=== PATIENT | male | born 1945 | race Caucasian/White ===

== ENCOUNTER 2020-08-01 08:17 | Outpatient (CLI) | payer MEDICARE, SELFPAY ==
--- NOTE | ~2020-08-01 | XR_ITS ---
EXAMINATION: XR chest 2V 08/01/2020 10:14 INDICATION: Hypertension. Carotid stenosis. PROCEDURE: 2 view chest COMPARISON: 09/03/2009 FINDINGS: The lungs are clear. The cardiomediastinal silhouette is within normal limits. There are no pleural effusions. There is no pneumothorax suspected. IMPRESSION: 1: NO ACUTE CARDIOPULMONARY DISEASE. Reviewed, dictated and finalized at location B. ROLL INSPECTOR
--- NOTE | ~2020-08-01 | US_ITS ---
EXAMINATION: US carotid duplex BI DATE: 08/01/2020 10:30 INDICATION: Carotid stenosis TECHNIQUE: Grayscale, color Doppler, and pulsed Doppler images of the cervical carotid arteries were obtained. The degree of vessel stenosis is placed in one of the following categories: normal, <50%, 5 0-69%, >=70% but less than near-occlusion, near-occlusion, or total occlusion. Note that percent sten osis relative to normal distal artery lumen diameter is indirectly measured from velocity measurement s as described by Blayne, et al. Radiology 2003; 229:340-346. Notes: Normal: Peak systolic velocity <125 centimeters/sec and no plaque <50%. Peak systolic velocity <125 ( EDV <40; ICA/CCA PSV ratio <2.0; used these factors only a tandem lesions or low cardiac output or co ntralateral disease) 50-69 %: PSV 125-230 (EDV 40-100; ratio 2-4) >= 70% but less than near occlusion: PSV greater than 230 (EDV > 100; ratio> 4.0) Near Occlusion: PSV that is variable; markedly narrowed lumen Occlusion: Absent flow on color/spectral Doppler and no lumen on cat scale. COMPARISON: None. FINDINGS: RIGHT: The right common carotid artery (CCA) peak systolic velocity (PSV) is 131 cm/s. The right internal ca rotid artery (ICA) PSV is 174 cm/s. The right ICA end-diastolic velocity (EDV) is 44 cm/s. The right ICA/CCA PSV ratio is 1.3. The external carotid artery (ECA) PSV is 156 cm/s. There is antegrade flow in the right vertebral artery. LEFT: The left CCA PSV is 85 cm/s. The left ICA PSV is 349 cm/s. The left ICA EDV is 68 cm/s. The left ICA/ CCA PSV ratio is 4.1. The ECA PSV is 130 cm/s. There is antegrade flow in the left vertebral artery. IMPRESSION: 1. 50-69% stenosis in the right internal carotid artery by sonographic criteria. 2. Greater than or equal to 70% stenosis in the left internal carotid artery by sonographic criteria. Reviewed, dictated and finalized at location B. NE ADVERTISING DIRECTOR IMPRESSION: 1. 50-69% stenosis in the right internal carotid artery by sonographic criteria . 2. Greater than or equal to 70% stenosis in the left internal carotid artery by sonographic criteria.
--- NOTE | 2020-08-01 08:36 | ECHO_ITS ---
Patient Info Name: Izaiah Hayes Age: 75 years : 1945 Gender: Male Ht: 73 in Wt: 186 lbs BSA: 2.09 m2 HR: 68 bpm BP: 161 / 75 mmHg Heart Rhythm: Sinus Rhythm Technical Quality: Fair Exam Date: 08/01/2020 9:06 AM Exam Location: [facility], [place] Patient Status: Outpatient Admit Date: 08/01/2020 Staff Ordering Physician: Landon Franklin MD Insurance Clerk: Cherrie Cavanaugh RDCS Attending Provider: Landon Franklin MD Referring Physician: Rigoberto NG; Exam Type: CA echo doppler color flow Study Info Indications I10 - Essential (primary) hypertension R06.00 - Dyspnea, unspecified Complete two-dimensional, color flow and Doppler transthoracic echocardiogram is performed. Strain analysis performed. History/Risk Factors Hypertension: No Dyslipidemia: No Congenital Heart Disease (CHD): No Peripheral Arterial Disease (PAD): No Myocardial Infarction (TN): No Chronic Lung Disease: No Obesity: No Renal Disease: No Coronary Artery Disease (CAD) No Congestive Heart Failure (CHF): No Cardiomyopathy/LV Systolic Dysfunction: No Diabetes Mellitus: No COPD: No Tobacco Use: Never Cerebrovascular Disease: No Family History: Coronary Artery Disease Deep Vein Thrombosis (DVT): None Dialysis: None Frailty Scale (CSHA): 2: Well Cardiac Arrest: No Summary 1. Complete two-dimensional, color flow and Doppler transthoracic echocardiogram is performed. 2. Left ventricular chamber dimension is normal. 3. Left ventricular systolic function is normal, estimated at 60-65%. 4. The left ventricular diastolic function is grade I diastolic dysfunction. 5. E/e' 8 is minimally elevated. 6. Right ventricular systolic function is mildly reduced based on a TAPSE 1.6 cm. 7. There is mild aortic valve sclerosis. 8. There is mild pulmonic regurgitation. Left Ventricle E/e' 8 is minimally elevated. Left ventricular chamber dimension is normal. Left ventricular systolic function is normal, estimated at 60-65%. The left ventricular diastolic function is grade I diastolic dysfunction. Right Ventricle Right ventricular systolic function is mildly reduced based on a TAPSE 1.6 cm. Right ventricular chamber dimension is not well visualized. Left Atria Left atrial chamber dimension is normal. Right Atria Right atrial chamber dimension is normal. Aortic Valve The aortic valve is trileaflet. There is mild aortic valve sclerosis. There is no aortic valve stenosis. There is no aortic valve regurgitation. Pulmonic Valve There is mild pulmonic regurgitation. Mitral Valve There is no mitral valve stenosis. There is no mitral valve regurgitation. Tricuspid Valve There is no tricuspid valve regurgitation. Pericardium/Pleural There is no pericardial effusion. Inferior Vena Cava Normal inferior vena cava with >50% collapse upon inspiration consistent with normal right atrial pressure, 5 mmHg. Aorta The aortic root size at the sinus of Valsalva is normal. Left Ventricular Outflow Tract Name Value Normal LVOT 2D LVOT Diameter 1.9 cm Mitral Valve
== END 2020-08-01 08:18 | disposition home or self-care (01) ==
LOC: CHSIMG 08:23
PROVIDERS: PCP Internal Medicine; Visit Provider Internal Medicine
DX: R06.00 Dyspnea, unspecified (principal); I65.23 Occlusion and stenosis of bilateral carotid arteries; I10 Essential (primary) hypertension
CPT/HCPCS: 71046; 93306; 93880

== ENCOUNTER 2020-08-05 16:41 | Outpatient (CLI) | payer MEDICARE, SELFPAY ==
[2020-08-05 17:38] LABS: SARS-CoV-2 Ag Negative (Negative)
== END 2020-08-05 16:42 | disposition home or self-care (01) ==
LOC: CHSLAB 16:45
PROVIDERS: PCP Internal Medicine; Visit Provider Internal Medicine
DX: Z20.828 Contact with and (suspected) exposure to other viral communicable diseases (principal)
CPT/HCPCS: 87426

== ENCOUNTER 2020-08-21 11:02 | Outpatient (CLI) | payer MEDICARE, SELFPAY ==
[2020-08-21 11:40] LABS: SARS-CoV-2 Ag Positive (Negative)
== END 2020-08-21 11:03 | disposition home or self-care (01) ==
LOC: CHSLAB 11:05
PROVIDERS: PCP Internal Medicine; Visit Provider Internal Medicine
DX: U07.1 COVID-19 (principal); R50.9 Fever, unspecified; R09.81 Nasal congestion
CPT/HCPCS: 87426

== ENCOUNTER 2020-09-05 07:26 | Outpatient (CLI) | payer MEDICARE, SELFPAY ==
--- NOTE | ~2020-09-05 | CT_ITS ---
EXAMINATION: CT abdomen pelvis w con DATE: 09/05/2020 08:03 INDICATION: Prostate cancer. Abdomen pain. TECHNIQUE: Computed tomography (CT) of the abdomen and pelvis was performed with 100 cc Omnipaque 350 intravenous contrast. The dose-length product was 500.75 mGy-cm. Automated exposure control and iter ative reconstruction technique were employed. COMPARISON: No prior studies for comparison. . FINDINGS: Lung bases are unremarkable. Heart size normal. No significant pleural or pericardial effus ion. Small subcentimeter hypodensity of the liver, most likely benign cysts. There are calcified granuloma s of the spleen. The pancreas is mildly atrophic. The adrenal glands are unremarkable. Left kidney is normal. There is a 2.5 cm exophytic hypodense right renal mass posteriorly with density measurements above expected for simple cyst. Correlation with ultrasound recommended for further assessment. Ther e are surgical changes consistent with previous bilateral inguinal hernia repair. Colonic diverticulo sis without evidence for diverticulitis. There is right total hip arthroplasty. Moderate lumbar spond ylosis with grade 1 degenerative spondylolisthesis at L4-5. Mild atherosclerosis without aneurysm. No lymphadenopathy. Mildly enlarged prostate gland. IMPRESSION: 1. No evidence for metastatic disease. 2: Indeterminate exophytic 2.5 cm hypodense right renal mass. Correlation with ultrasound recommended . Reviewed, dictated and finalized at location A. N RESOURCES PARTNER IMPRESSION: 1. No evidence for metastatic disease. 2: Indeterminate exophytic 2.5 cm hypodense right renal mass. Correlation with ultrasound recommended.
--- NOTE | ~2020-09-05 | NM_ITS ---
EXAMINATION: NM bone scan whole body DATE: 09/05/2020 12:45 INDICATION: Prostate cancer TECHNIQUE: 25.9 mCi Tc-99m HDP was administered intravenously. Delayed whole-body scintigrams were o btained. COMPARISON: CT abdomen and pelvis dated 09/05/2020 FINDINGS: Photopenic defect at the right hip corresponding to a right total hip arthroplasty without surroundin g increased bone uptake to suggest loosening or infection. There are scattered foci of likely degener ative joint centered uptake at the bilateral sternoclavicular, acromioclavicular,, cervical and lumba r facet, knee and ankle joints as well as at the radial aspect of the carpi. No other suspicious foci of suspicious bone uptake to suggest metastatic disease. IMPRESSION: 1. No suspicious foci of uptake to suggest metastatic disease. 2. Typical pattern of likely degenerative joint centered uptake throughout the axial and appendicular skeleton. Reviewed, dictated and finalized at location A. R CASER
[2020-09-05 07:57] LABS: Estimated Glomerular Filt Rate 59
== END 2020-09-05 07:27 | disposition home or self-care (01) ==
PROVIDERS: PCP Internal Medicine; Visit Provider Urology
DX: C61 Malignant neoplasm of prostate (principal)
CPT/HCPCS: 74177; 78306; A9561; Q9967

== ENCOUNTER 2020-09-16 07:49 | Outpatient (CLI) | payer MEDICARE, SELFPAY ==
--- NOTE | ~2020-09-16 | US_ITS ---
EXAMINATION: US retroperitoneal comp DATE: 09/16/2020 08:21 INDICATION: Kidney mass. TECHNIQUE: Multiple ultrasound grayscale images of the kidneys were obtained. COMPARISON: CT abdomen and pelvis 09/05/2020 FINDINGS: The right kidney measures 9.8 x 5.0 x 5.8 cm. The left kidney measures 9.8 x 5.5 x 5.1 cm. The kidney s demonstrate normal parenchymal echogenicity. There is a 2.5 cm hypoechoic mass in right kidney. The re is no hydronephrosis. The bladder is normal. IMPRESSION: 1. 2.5 cm hypoechoic mass in right kidney, which may be a hemorrhagic cyst or solid neoplasm. Abdome n CT without and with contrast is recommended. Reviewed, dictated and finalized at location B. RA TUNING ENGINEER IMPRESSION: 1. 2.5 cm hypoechoic mass in right kidney, which may be a hemorrhagic cyst or solid neoplasm. Abdomen CT without and with contrast is recommended.
== END 2020-09-16 07:50 | disposition home or self-care (01) ==
LOC: ANHIMG 07:52
PROVIDERS: PCP Internal Medicine; Visit Provider Urology
DX: N28.89 Other specified disorders of kidney and ureter (principal)
CPT/HCPCS: 76770

== ENCOUNTER 2020-10-07 06:57 | Outpatient (CLI) | payer MEDICARE, SELFPAY ==
[2020-10-07 10:48] LABS: Alanine Aminotransferase 36 U/L (16-63); Cholesterol 149 mg/dL (0-200); HDL Direct 60 mg/dL (40-60); LDL Cholesterol Calculated 81 mg/dL (<130); Triglycerides 41 mg/dL (0-150)
== END 2020-10-07 06:58 | disposition home or self-care (01) ==
PROVIDERS: PCP Internal Medicine; Visit Provider Internal Medicine Cardiovascular Disease
DX: E78.2 Mixed hyperlipidemia (principal); Z79.899 Other long term (current) drug therapy
CPT/HCPCS: 36415; 80061; 84460

== ENCOUNTER 2020-11-10 09:19 | Outpatient (CLI) | payer MEDICARE, SELFPAY ==
--- NOTE | 2020-11-10 09:30 | ECG_ITS ---
Measurements Intervals [place] Rate: 74 P: -4 SC: 170 QRS: 32 QRSD: 112 T: 11 QT: 378 QTc: 422 Interpretive Statements SINUS RHYTHM INTRAVENTRICULAR CONDUCTION DELAY BASELINE ARTIFACT- I, II, III, AVR, AVF BORDERLINE ECG Electronically Signed On 11-10-2020 10:49:30 CDT by Jadon Flores D.O.
== END 2020-11-10 09:20 | disposition home or self-care (01) ==
LOC: ANHSURGERY 09:25
PROVIDERS: PCP Internal Medicine; Visit Provider Urology
DX: C61 Malignant neoplasm of prostate (principal); I10 Essential (primary) hypertension; Z01.818 Encounter for other preprocedural examination; I45.9 Conduction disorder, unspecified
CPT/HCPCS: 87086; 93005

== ENCOUNTER 2020-11-18 01:33 | Day surgery (SDC) | payer MEDICARE, SELFPAY ==
[2020-11-06 09:35] VITALS: BMI 24.1
[2020-11-18 12:19] VITALS: BP 131/71; PULSE 66; RESP 16; TEMP 36.4; O2SAT 98
[2020-11-18] MEDS: LACTATED RINGERS 1,000 ML 30 ML IV CONT (12:56)
--- NOTE | 2020-11-18 13:42 | WPDHPUPDATE1 ---
History and Physical Update Update Date/Time: 11/18/20 13:42 History and Physical has been reviewed, including an updated exam of the patient. There are NO changes in the patient's condition. Risks, benefits, and alternatives have been discussed and questions answered. Patient agrees to proceed with procedure. Proceed with space oar placement
--- NOTE | 2020-11-18 13:47 | WPDANESEPPF ---
Anes - Initial Pre Proc Eval Procedure: Operation Date: 11/18/20 14:00 Proposed Procedures p Insertion SpaceOAR Hydrogel System - Monroe Almazan MD Date/Time: 11/18/20 13:47 Surgeon: Monroe Almazan MD Pre Op Diagnosis: prostate ca Patient Data Age: 75 Gender: M Height: 6 ft 1 in Weight: 80 kg Last Vital Signs Temp 36.4 C L 11/18/20 12:19 Pulse 66 11/18/20 12:19 Resp 16 11/18/20 12:19 BP 131/71 11/18/20 12:19 Pulse Ox 98 11/18/20 12:19 Allergies Allergy/AdvReac Type Severity Reaction Status Date / Time No Known Allergies Allergy Mild Verified 11/18/20 12:43 Home Medications Medication Instructions Recorded Confirmed Type amlodipine 5 mg PO HS 11/06/20 11/18/20 History aspirin 81 mg PO DAILY 11/06/20 11/18/20 History atorvastatin 40 mg PO HS 11/06/20 11/18/20 History travoprost 1 drp EACH EYE HS 11/06/20 11/18/20 History ciprofloxacin HCl 500 mg PO BID 11/18/20 11/18/20 History Patient hx anesthesia problems: none Family hx anesthesia problems: none PMFSH Past Medical History Medical History (Updated 11/18/20 @ 13:48 by Aleksandr Lopez MD) HTN (hypertension) Hyperlipidemia Prostate cancer Social History Social History Smoking status: Never smoker Alcohol intake: current Substance use: never Living arrangements: with family Additional living arrangements comments: Spiritual care concerns: No Anes - Eval Final PreProcedure Day of Procedure 11/18/20 13:47 Patient weight: normal Heart: regular rate and rhythm Lungs: clear to auscultation Airway: Mallampati scale class II Neurological: alert and oriented Last oral intake: >/= 8 hours ASA classification: III Emergent: no Anesthetic plan: proceed Anesthesia type and monitoring: general LMA and standard monitoring Informed Consent: The patient's anesthetic plan and its attendant risks and benefits were discussed with the patient/family/POA. Questions were solicited and answers provided to the satisfaction of the patient/family/POA.
[2020-11-18] MEDS: ceFAZolin 2 GM/D5W 50 ML 2 GM/50 ML BAG IVPB (14:00)
--- NOTE | 2020-11-18 14:23 | PM.PROC ---
Procedure Note - Detailed Date of procedure: 11/18/20 Pre-op diagnosis: prostate ca Post-op diagnosis: same Procedure performed: Space oar with trus Description of procedure: Patient is taken to the operative suite and correctly identified. Once anesthesia was obtained was placed in dorsal lithotomy position and prepped in the usual sterile fashion. Transrectal ultrasound was then performed. The prostate was visualized both planes. Spinal needle was then inserted into the space between the prostate and the rectum. This was confirmed both in the transverse and sagittal view. 1 cc of normal saline was injected to confirm placement. Aspiration revealed no blood. The prior prepared space oar mixture was then injected into that same space. It was visualized at all times. There was good separation of the prostate from the rectum. Patient tolerated procedure well without complications taken recovery stable condition. Anesthesia: GLMA Surgeon: Monroe Almazan MD Drains: No Packing: No Pathology: none sent Complications: No immediate complications Condition: stable Disposition: PACU
[2020-11-18 14:29] VITALS: BP 128/75; PULSE 74; RESP 14; TEMP 36.5; O2SAT 99
[2020-11-18 14:45] VITALS: BP 156/74; PULSE 63; RESP 10; O2SAT 99
[2020-11-18 14:56] VITALS: BP 168/91; PULSE 69; RESP 12
[2020-11-18 15:25] VITALS: BP 172/88; PULSE 63; RESP 12
== END 2020-11-18 15:37 | disposition home or self-care (01) ==
PROVIDERS: PCP Internal Medicine; Visit Provider Urology
PROC: (CPT 55874; principal; 2020-11-18 14:00)
DX: C61 Malignant neoplasm of prostate (principal); I10 Essential (primary) hypertension; E78.5 Hyperlipidemia, unspecified; Z79.82 Long term (current) use of aspirin
CPT/HCPCS: 55874; A9270; C1889; J0690; J1100; J2405; J2704; J7120

== ENCOUNTER 2020-11-27 12:39 | Outpatient (CLI) | payer MEDICARE, SELFPAY ==
--- NOTE | ~2020-11-27 | MR_ITS ---
EXAMINATION: MR abdomen wo/w con DATE: 11/27/2020 14:56 INDICATION: Right kidney mass. TECHNIQUE: Magnetic resonance imaging (MRI) of the abdomen was performed without and with 16 mL Multi Dilma intravenous contrast. Sequences included coronal T2-weighted FS FSE, coronal and axial FIESTA F S, coronal LAVA-flex, axial LAVA, axial T2-weighted FSE, axial T1-weighted dual-echo FSPGR, axial STI R FSE, and axial DWI. Postcontrast sequences included coronal LAVA-flex and a time course of axial LA VA. COMPARISON: CT abdomen and pelvis 09/05/2020, ultrasound 09/16/2020 FINDINGS: There is a 10 mm cyst in the liver. The gallbladder and spleen are normal. There is a small sliding h iatal hernia. The pancreas, adrenal glands, and left kidney are normal. There is a 2.9 cm cystic mass in right kidney with few thin septa (Bosniak type II). There are no dilated loops of bowel. There ar e no pathologically enlarged lymph nodes. There is no free intraperitoneal fluid. There is metal nancy fact in right hip. IMPRESSION: 1. Benign cystic mass in right kidney. Reviewed, dictated and finalized at location A.
--- NOTE | ~2020-11-27 | MR_ITS ---
. EXAMINATION: MR pelvis wo/w con DATE: 11/27/2020 14:44 INDICATION: Right kidney mass. Prostate cancer. TECHNIQUE: Magnetic resonance imaging (MRI) of the pelvis was performed without and with 16 mL MultiH ance intravenous contrast. Sequences included coronal and axial T2-weighted SS-FSE, coronal and axial FS 2D-FIESTA, axial T1-weighted dual-echo FSPGR, and axial T1-weighted LAVA. Postcontrast axial T1-w eighted LAVA images were obtained. COMPARISON: CT abdomen and pelvis 09/05/2020 FINDINGS: There are no dilated loops of bowel. There are no pathologically enlarged lymph nodes. The prostate i s mildly enlarged. There is a 3.3 x 1.4 cm fluid collection between the rectum and prostate, likely a hematoma. There are changes of bilateral inguinal hernia repairs. There is metal artifact in right h ip and right acetabulum. IMPRESSION: 1. No evidence of metastatic disease. Reviewed, dictated and finalized at location A.
[2020-11-27 13:29] LABS: Estimated Glomerular Filt Rate > 60
== END 2020-11-27 12:40 | disposition home or self-care (01) ==
PROVIDERS: PCP Internal Medicine; Visit Provider Radiology Radiation Oncology
DX: C61 Malignant neoplasm of prostate (principal); N28.89 Other specified disorders of kidney and ureter
CPT/HCPCS: 72197; 74183; A9577

== ENCOUNTER 2020-12-06 09:21 | Outpatient (CLI) | payer MEDICARE, SELFPAY ==
[2020-12-06 10:22] LABS: Prostate Specific Antigen 6.4 ng/mL (< OR = 4.0)
== END 2020-12-06 09:22 | disposition home or self-care (01) ==
PROVIDERS: PCP Internal Medicine; Visit Provider Radiology Radiation Oncology
DX: C61 Malignant neoplasm of prostate (principal)
CPT/HCPCS: 36415; 84153

== ENCOUNTER 2021-03-18 07:00 | Outpatient (CLI) | payer MEDICARE, SELFPAY ==
[2021-03-18 07:17] LABS: Basophils Absolute Auto 0.04 K/mm3 (0.00-0.10); Basophils Percent Auto 0.5 % (0.0-1.0); Eosinophils Absolute Auto 0.34 K/mm3 (0.02-0.50); Eosinophils Percent Auto 4.6 % (1.0-6.0); Hematocrit 36.7 % (37.0-46.0); Hemoglobin 12.6 g/dL (12.4-15.3); Immature Granulocyte Absolute 0.03 K/mm3 (0.00-0.00); Immature Granulocyte Percent A 0.4 % (0.0-0.0); Lymphocytes Absolute Auto 0.72 K/mm3 (1.10-4.50); Lymphocytes Percent Auto 9.7 % (18.0-42.0); Mean Corpuscular HGB Conc 34.3 g/dL (32.0-36.0); Mean Corpuscular Hemoglobin 31.7 pg (27.0-31.0); Mean Corpuscular Volume 92.4 fL (78.0-102.0); Mean Platelet Volume 9.3 fl (8.7-11.0); Monocytes Absolute Auto 0.71 K/mm3 (0.10-0.90); Monocytes Percent Auto 9.6 % (2.0-11.0); Neutrophils Absolute Auto 5.6 K/mm3 (1.7-7.2); Neutrophils Percent Auto 75.2 % (50.0-70.0); Platelet Count Result 243 K/mm3 (150-420); Red Blood Count 3.97 M/mm3 (4.70-6.10); Red Cell Distribution Width 14.2 % (11.6-14.4); White Blood Count 7.4 K/mm3 (4.8-10.8)
[2021-03-18 07:33] LABS: Appearance Urine Clear (Clear); Bilirubin Urine Negative (Negative); Color Urine Light Yellow (Yellow); Glucose Urine UA Negative (Negative); Ketones Urine Negative (Negative); Leukocyte Esterase Ur Negative (Negative); Nitrate Urine Negative (Negative); Protein Urine Negative (Negative); Urobilinogen Urine 0.2 mg/dL (0.2-1.0)
[2021-03-18 07:40] LABS: Add Urine Microscopic? YES; Bacteria Urine None seen /hpf; Blood Urine Trace-Intact (Negative); Mucus Urine Moderate /lpf; RBC Urine None seen /hpf (0-2); Squamous Epithelial Cell Urine Rare /hpf (Few); WBC Urine None seen /hpf (0-3)
[2021-03-18 08:25] LABS: Alanine Aminotransferase 61 U/L (16-63); Albumin Level 3.4 g/dL (3.4-5.0); Alkaline Phosphatase 113 U/L (46-116); Anion Gap 9 mmol/L (8-16); Aspartate Amino Transferase 34 U/L (15-37); Bilirubin,Total 0.7 mg/dL (0.00-1.00); Blood Urea Nitrogen 24 mg/dL (7-18); Calcium 8.8 mg/dL (8.5-10.1); Carbon Dioxide 26 mmol/L (21-32); Chloride 107 mmol/L (98-108); Cholesterol 144 mg/dL (0-200); Creatine Kinase 41 U/L (39-308); Estimated Glomerular Filt Rate > 60; Glucose 90 mg/dL (70-99); HDL Direct 63 mg/dL (40-60); LDL Cholesterol Calculated 74 mg/dL (<130); Osmolality Calculated 298 mOsm/kg (285-295); Potassium 4.4 mmol/L (3.5-5.1); Sodium 142 mmol/L (136-145); Total Protein 6.4 g/dL (6.4-8.2); Triglycerides 33 mg/dL (0-150)
== END 2021-03-18 07:01 | disposition home or self-care (01) ==
LOC: CHSLAB 07:02
PROVIDERS: PCP Internal Medicine; Visit Provider Internal Medicine
DX: I10 Essential (primary) hypertension (principal); E78.2 Mixed hyperlipidemia; C61 Malignant neoplasm of prostate
CPT/HCPCS: 36415; 80053; 80061; 81001; 82550; 85025

== ENCOUNTER 2021-11-16 08:32 | Outpatient (CLI) | payer MEDICARE, SELFPAY ==
--- NOTE | ~2021-11-16 | MMUS_ITS ---
EXAMINATION: MM diagnostic mammo BI, US breast BI complete HISTORY: Subareolar right breast lump TECHNIQUE: ML and CC views of each breast. Rotated lateral craniocaudal view of left breast. CAD anal ysis was submitted and interpreted. High resolution breast ultrasound was performed. COMPARISON: None BREAST PARENCHYMAL COMPOSITION: There are scattered areas of fibroglandular density. FINDINGS: MAMMOGRAPHIC FINDINGS: There is relatively symmetric bilateral gynecomastia. There is a 10.5 x 11.6 mm circumscribed mass high in the anterior left breast on MLO view, not detect ed on the rotated routine craniocaudal view. No suspicious mass or architectural distortion or malignant calcification of either breast is noted o therwise. No skin thickening or retraction. ULTRASOUND: Right breast: There is fibroglandular tissue consistent with gynecomastia. No suspicious mass or shad owing, cyst or other significant finding is noted. Left breast: There is gynecomastia. At 1:00 13 cm from the nipple near the left axilla is a superficial oval circumscribed parallel heter ogeneous approximately 8 x 14.5 mm hypoechoic mass with through transmission posterior enhancement. M inimal vascular color flow signal is noted within the lesion. Sebaceous cyst is a consideration. Ther e is history of previous aspiration or biopsy of this lesion. Correlation with biopsy results is amira mmended. IMPRESSION: 1. Bilateral gynecomastia 2. 8 x 14.5 mm circumscribed parallel oval heterogeneous hypoechoic lesion with through transmission posterior enhancement, probably benign BI-RADS Category 3: Probably benign finding Recommendation: Consider therapeutic surgical excision. Otherwise follow-up ultrasound imaging in 6 m onths is recommended. Reviewed, dictated and finalized at location A. IMPRESSION: 1. Bilateral gynecomastia 2. 8 x 14.5 mm circumscribed parallel oval heterogeneous hypoechoic lesion with through transmission posterior enhancement, probably benign BI-RADS Category 3: Probably benign finding Recommendation: Consider therapeutic surgical excision. Otherwise follow-up ult rasound imaging in 6 months is recommended.
== END 2021-11-16 08:33 | disposition home or self-care (01) ==
LOC: CHSIMG 08:33
PROVIDERS: PCP Internal Medicine; Visit Provider Internal Medicine
DX: N63.10 Unspecified lump in the right breast, unspecified quadrant (principal); N64.59 Other signs and symptoms in breast
CPT/HCPCS: 76641; 77066

== ENCOUNTER 2021-12-09 07:53 | Outpatient (CLI) | payer MEDICARE, SELFPAY ==
--- NOTE | ~2021-12-09 | MR_ITS ---
EXAMINATION: MR abdomen wo/w con DATE: 12/09/2021 09:21 INDICATION: Kidney mass. TECHNIQUE: Magnetic resonance imaging (MRI) of the abdomen was performed without and with 17 mL Multi Dilma intravenous contrast. Sequences included coronal T2-weighted FS FSE, coronal and axial FIESTA F S, coronal LAVA-flex, axial LAVA, axial T2-weighted FSE, axial T1-weighted dual-echo FSPGR, axial STI R FSE, and axial DWI. Postcontrast sequences included coronal LAVA-flex and a time course of axial LA VA. COMPARISON: Abdomen MRI 11/27/2020, CT abdomen and pelvis 09/05/2020 FINDINGS: There are cysts in the liver measuring up to 11 mm. The gallbladder, spleen, are normal. There are 4 mm and 3 mm cysts in the tail of the pancreas without visible communication with the main pancreatic duct. The adrenal glands and left kidney are normal. There is a 2.7 cm cyst with few thin septa in ri ght kidney (Bosniak type II). There is a 2.7 cm simple cyst in right kidney. There is a small sliding hiatal hernia. There are no dilated loops of bowel. There are no pathologically enlarged lymph nodes . There is no free intraperitoneal fluid. IMPRESSION: 1. Benign cysts in right kidney. 2. Two cystic lesions in the pancreas measuring up to 4 mm. The differential diagnosis includes pseud ocyst, intraductal papillary mucinous neoplasm (IPMN), mucinous cystic neoplasm (MCN), serous cystade noma, and neuroendocrine tumor. Abdomen MRI without and with contrast is recommended in 2 years. Reviewed, dictated and finalized at location A. IMPRESSION: 1. Benign cysts in right kidney. 2. Two cystic lesions in the pancreas measuring up to 4 mm. The differential di agnosis includes pseudocyst, intraductal papillary mucinous neoplasm (IPMN), mu cinous cystic neoplasm (MCN), serous cystadenoma, and neuroendocrine tumor. Abd omen MRI without and with contrast is recommended in 2 years.
--- NOTE | ~2021-12-09 | MR_ITS ---
EXAMINATION: MR pelvis wo/w con DATE: 12/09/2021 09:21 INDICATION: Right kidney mass. Prostate cancer. TECHNIQUE: Magnetic resonance imaging (MRI) of the pelvis was performed without and with 17 mL MultiH ance intravenous contrast. Sequences included coronal and axial T2-weighted SS-FSE, coronal and axial FS 2D-FIESTA, axial T1-weighted dual-echo FSPGR, and axial T1-weighted LAVA. Postcontrast axial T1-w eighted LAVA images were obtained. COMPARISON: Pelvis MRI 11/27/2020, CT abdomen and pelvis 09/05/2020 FINDINGS: There is artifact from a total right hip arthroplasty and internal fixation of right acetabulum. Ther e are no dilated loops of bowel. The prostate is mildly enlarged. There is prominent fat in left ingu inal canal. There are changes of bilateral inguinal hernia repairs. There are no pathologically enlar ged lymph nodes. There is no free intraperitoneal fluid. IMPRESSION: 1. No evidence of metastatic disease. Reviewed, dictated and finalized at location A.
[2021-12-09 08:28] LABS: Estimated Glomerular Filt Rate 59
== END 2021-12-09 07:54 | disposition home or self-care (01) ==
PROVIDERS: PCP Internal Medicine; Visit Provider Urology
DX: N28.1 Cyst of kidney, acquired (principal); N40.0 Benign prostatic hyperplasia without lower urinary tract symptoms; K86.2 Cyst of pancreas; K76.89 Other specified diseases of liver; N28.89 Other specified disorders of kidney and ureter; K44.9 Diaphragmatic hernia without obstruction or gangrene
CPT/HCPCS: 72197; 74183; A9577

== ENCOUNTER 2022-06-25 12:08 | Outpatient (CLI) | payer MEDICARE, SELFPAY ==
[2022-06-25 13:10] LABS: Prostate Specific Antigen 4.9 ng/mL (< OR = 4.0)
== END 2022-06-25 12:09 | disposition home or self-care (01) ==
PROVIDERS: PCP Internal Medicine; Visit Provider Urology
DX: C61 Malignant neoplasm of prostate (principal)
CPT/HCPCS: 36415; 84153

== ENCOUNTER 2022-07-13 08:26 | Outpatient (CLI) | payer MEDICARE, SELFPAY ==
[2022-07-13 08:41] LABS: Basophils Absolute Auto 0.04 K/mm3 (0.00-0.10); Basophils Percent Auto 0.6 % (0.0-1.0); Eosinophils Percent Auto 2.9 % (1.0-6.0); Hematocrit 41.1 % (37.0-46.0); Hemoglobin 13.8 g/dL (12.4-15.3); Immature Granulocyte Absolute 0.02 K/mm3 (0.00-0.00); Immature Granulocyte Percent A 0.3 % (0.0-0.0); Lymphocytes Absolute Auto 1.07 K/mm3 (1.10-4.50); Lymphocytes Percent Auto 15.3 % (18.0-42.0); Mean Corpuscular HGB Conc 33.6 g/dL (32.0-36.0); Mean Corpuscular Volume 92.4 fL (78.0-102.0); Mean Platelet Volume 9.2 fl (8.7-11.0); Monocytes Absolute Auto 0.67 K/mm3 (0.10-0.90); Monocytes Percent Auto 9.6 % (2.0-11.0); Neutrophils Percent Auto 71.3 % (50.0-70.0); Platelet Count Result 228 K/mm3 (150-420); Red Blood Count 4.45 M/mm3 (4.70-6.10)
[2022-07-13 08:44] LABS: Appearance Urine Clear (Clear); Bilirubin Urine Negative (Negative); Glucose Urine UA Negative (Negative); Ketones Urine Negative (Negative); Leukocyte Esterase Ur Negative LEU/UL (Negative); Nitrate Urine Negative (Negative); Protein Urine Negative (Negative); Urobilinogen Urine 0.2 mg/dL (0.2-1.0)
[2022-07-13 09:03] LABS: Add Urine Microscopic? YES; Bacteria Urine Trace /hpf; Blood Urine Trace-Intact (Negative); Color Urine Light Yellow (Yellow); Mucus Urine Few /lpf; RBC Urine None seen /hpf (0-2); WBC Urine None seen /hpf (0-3)
[2022-07-13 09:28] LABS: Alanine Aminotransferase 28 U/L (16-63); Albumin Level 3.4 g/dL (3.4-5.0); Alkaline Phosphatase 81 U/L (46-116); Aspartate Amino Transferase 23 U/L (15-37); Bilirubin,Total 0.8 mg/dL (0.00-1.00); Blood Urea Nitrogen 23 mg/dL (7-18); Calcium 8.4 mg/dL (8.5-10.1); Chloride 105 mmol/L (98-108); Cholesterol 157 mg/dL (0-200); Creatine Kinase 50 U/L (39-308); Estimated Glomerular Filt Rate 54; Glucose 92 mg/dL (70-99); HDL Direct 63 mg/dL (40-60); LDL Cholesterol Calculated 88 mg/dL (<130); Osmolality Calculated 293 mOsm/kg (285-295); Potassium 4.5 mmol/L (3.5-5.1); Sodium 140 mmol/L (136-145); Total Protein 6.6 g/dL (6.4-8.2); Triglycerides 28 mg/dL (0-150)
[2022-07-13 09:38] LABS: Anion Gap 9 mmol/L (8-16); Carbon Dioxide 26 mmol/L (21-32)
== END 2022-07-13 08:27 | disposition home or self-care (01) ==
LOC: CHSLAB 08:29
PROVIDERS: PCP Internal Medicine; Visit Provider Internal Medicine
DX: E78.2 Mixed hyperlipidemia (principal); I10 Essential (primary) hypertension; N39.0 Urinary tract infection, site not specified
CPT/HCPCS: 36415; 80053; 80061; 81001; 82550; 85025

== ENCOUNTER 2022-10-08 12:37 | Outpatient (CLI) | payer MEDICARE, SELFPAY ==
--- NOTE | ~2022-10-08 | PE_ITS ---
EXAMINATION: PET_PETPSMAST_PT DATE: 10/08/2022 15:22 INDICATION: Prostate cancer TECHNIQUE: 8.563 mCi of pipflufolastat F-18 (18-F-DCFPyL) was administered i.v. Low dose computed to mography (CT) images were acquired from the base of the brain to the base of the brain to the proxima l thighs for attenuation correction and anatomic localization. Positron emission tomography (PET) erin ges were acquired in the same distribution beginning 98 minutes after injection. Images including fus ed PET/CT images were reconstructed in axial, coronal, and sagittal planes. Automated exposure contro l technique was employed. The dose-length product was 722.20 mGy-cm. COMPARISON: CT abdomen and pelvis dated 09/05/2020 FINDINGS: Head/neck: Typical pattern of symmetric physiologic increased activity in the lacrimal, parotid and submandibula r glands as well as along the mucosa of the nasal and oral cavities, the abad-, naso- and hypopharynx, the glottis and esophagus. No pathologically enlarged cervical lymphadenopathy or suspicious foci of increased uptake in the visualized head or neck. Chest: Mild biapical pleural-parenchymal scarring. Calcified nodules in the right lower lobe and calcified r ight hilar lymph nodes consistent with old granulomatous disease. No suspicious pulmonary nodules, pn eumonia or other pulmonary infiltrates, pulmonary edema or pleural effusion. Arch size normal. Athero sclerotic coronary artery calcific lesion. Minimal activity with maximal SUV of 2.3 which is approxim ately equivalent to the level of the in the blood pool which is associated with a normal sized 1.5 x 0.7 cm left axillary lymph node with normal central fatty hilum. No pathologically enlarged or more P SMA avid thoracic lymphadenopathy. 11 mm subdermal likely sebaceous cyst at the left axilla. Abdomen/pelvis/proximal thighs: Physiologic renal accumulation and excretion of activity in the kidneys, bladder and along portions o f ureters. 2.9 cm exophytic cyst at the upper pole of the right kidney. Interval prostatectomy with s urgical clips or less likely therapy seeds at the prostatectomy bed. There is a bilobed region of sig nificant increased uptake with maximal SUV of 36.7 at the prostatectomy bed. The large region of upta ke is located more inferiorly and centrally with the contiguous smaller and more cephalad component l ocated to the right and posterior. This could represent either recurrent disease or potentially excre yogesh uptake along the degree of uptake is less than the urine in the bladder and there is no direct co ntiguous communication between the two. Normal degree and slightly heterogenous pattern of increased uptake throughout the liver and spleen without radiologic correlate or dominant PSMA avid lesion. 1.2 cm hepatic cyst. Splenic calcifications consistent with old granulomatous disease. The gallbladder, pancreas and bilateral adrenal glands are normal. Moderate uptake scattered throughout the bowels wit h typical duodenal predominance and without radiologic correlate, also likely physiologic. Small fat- containing left inguinal hernia with multiple surgical clips consistent bilateral inguinal hernia rep airs. And seen are tiny foci of mild uptake at multiple neural foramina primarily in the cervical and lumbosacral spine likely representing physiologic ganglionic uptake. No other abnormal foci of incre ased uptake or pathologically enlarged lymphadenopathy in the abdomen, pelvis or proximal thighs. Musculoskeletal: Severe lumbar spondylosis. No suspicious lytic, blastic or PSMA avid bone lesions. IMPRESSION: 1. Bilobed region of prominent increased activity at the prostatectomy bed portion of which is more e ccentric which overall demonstrates approximately half the level of activity as the excreted urine in the bladder and favor residual/recurrent disease ovary urine activity in the prostatectomy defect. 2. No l
== END 2022-10-08 12:38 | disposition home or self-care (01) ==
PROVIDERS: PCP Internal Medicine; Visit Provider Urology
DX: C61 Malignant neoplasm of prostate (principal); R97.20 Elevated prostate specific antigen [PSA]
CPT/HCPCS: 78815; A9595

== ENCOUNTER 2023-01-26 07:02 | Outpatient (CLI) | payer MEDICARE, SELFPAY ==
[2023-01-26 07:33] LABS: Basophils Absolute Auto 0.05 K/mm3 (0.00-0.10); Basophils Percent Auto 0.7 % (0.0-1.0); Eosinophils Absolute Auto 0.28 K/mm3 (0.02-0.50); Hematocrit 41.3 % (37.0-46.0); Hemoglobin 13.7 g/dL (12.4-15.3); Immature Granulocyte Absolute 0.02 K/mm3 (0.00-0.00); Immature Granulocyte Percent A 0.3 % (0.0-0.0); Lymphocytes Absolute Auto 0.96 K/mm3 (1.10-4.50); Lymphocytes Percent Auto 13.6 % (18.0-42.0); Mean Corpuscular HGB Conc 33.2 g/dL (32.0-36.0); Mean Corpuscular Hemoglobin 30.9 pg (27.0-31.0); Mean Corpuscular Volume 93.2 fL (78.0-102.0); Mean Platelet Volume 9.8 fl (8.7-11.0); Monocytes Percent Auto 9.9 % (2.0-11.0); Neutrophils Absolute Auto 5.1 K/mm3 (1.7-7.2); Neutrophils Percent Auto 71.5 % (50.0-70.0); Platelet Count Result 249 K/mm3 (150-420); Red Blood Count 4.43 M/mm3 (4.70-6.10); Red Cell Distribution Width 15.2 % (11.6-14.4); White Blood Count 7.1 K/mm3 (4.8-10.8)
[2023-01-26 07:47] LABS: Appearance Urine Clear (Clear); Bilirubin Urine Negative (Negative); Blood Urine Trace-Intact (Negative); Color Urine Light Yellow (Yellow); Glucose Urine UA Negative (Negative); Ketones Urine Negative (Negative); Leukocyte Esterase Ur Negative LEU/UL (Negative); Nitrate Urine Negative (Negative); Protein Urine Negative (Negative); Urobilinogen Urine 0.2 mg/dL (0.2-1.0)
[2023-01-26 07:50] LABS: Alanine Aminotransferase 30 U/L (16-63); Albumin Level 3.4 g/dL (3.4-5.0); Alkaline Phosphatase 76 U/L (46-116); Anion Gap 6 mmol/L (8-16); Aspartate Amino Transferase 23 U/L (15-37); Bilirubin,Total 0.7 mg/dL (0.00-1.00); Blood Urea Nitrogen 24 mg/dL (7-18); Calcium 8.4 mg/dL (8.5-10.1); Carbon Dioxide 28 mmol/L (21-32); Chloride 105 mmol/L (98-108); Cholesterol 214 mg/dL (0-200); Creatine Kinase 39 U/L (39-308); Estimated Glomerular Filt Rate > 60; Glucose 90 mg/dL (70-99); HDL Direct 66 mg/dL (40-60); LDL Cholesterol Calculated 139 mg/dL (<130); Osmolality Calculated 292 mOsm/kg (285-295); Potassium 4.4 mmol/L (3.5-5.1); Sodium 139 mmol/L (136-145); Total Protein 6.4 g/dL (6.4-8.2); Triglycerides 45 mg/dL (0-150)
[2023-01-26 08:20] LABS: Add Urine Microscopic? YES; RBC Urine None seen /hpf (0-2); WBC Urine None seen /hpf (0-3)
[2023-01-26 08:21] LABS: Bacteria Urine None seen /hpf
== END 2023-01-26 07:03 | disposition home or self-care (01) ==
LOC: CHSLAB 07:04
PROVIDERS: PCP Internal Medicine; Visit Provider Internal Medicine
DX: N39.0 Urinary tract infection, site not specified (principal); E78.2 Mixed hyperlipidemia; I10 Essential (primary) hypertension
CPT/HCPCS: 36415; 80053; 80061; 81001; 82550; 85025

== ENCOUNTER 2023-09-23 16:07 | Outpatient (CLI) | payer MEDICARE, SELFPAY ==
--- NOTE | ~2023-09-23 | XR_ITS ---
EXAMINATION: XR chest 2V 09/23/2023 16:34 INDICATION: Dyspnea PROCEDURE: 2 view chest COMPARISON: Comparison to multiple prior studies sequentially, with oldest reviewed study dated 01/2022. FINDINGS: The lungs are clear. The cardiomediastinal silhouette is within normal limits. There are no pleural effusions. There is no pneumothorax suspected. IMPRESSION: 1: NO ACUTE CARDIOPULMONARY DISEASE. Reviewed, dictated and finalized at location [facility]. 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
[2023-09-23 16:29] LABS: Basophils Absolute Auto 0.04 K/mm3 (0.00-0.10); Basophils Percent Auto 0.5 % (0.0-1.0); Eosinophils Absolute Auto 0.24 K/mm3 (0.02-0.50); Eosinophils Percent Auto 3.2 % (1.0-6.0); Hematocrit 35.1 % (37.0-46.0); Hemoglobin 12.1 g/dL (12.4-15.3); Immature Granulocyte Absolute 0.02 K/mm3 (0.00-0.00); Immature Granulocyte Percent A 0.3 % (0.0-0.0); Lymphocytes Absolute Auto 1.25 K/mm3 (1.10-4.50); Lymphocytes Percent Auto 16.9 % (18.0-42.0); Mean Corpuscular HGB Conc 34.5 g/dL (32.0-36.0); Mean Corpuscular Hemoglobin 31.1 pg (27.0-31.0); Mean Corpuscular Volume 90.2 fL (78.0-102.0); Mean Platelet Volume 9.4 fl (8.7-11.0); Monocytes Absolute Auto 0.83 K/mm3 (0.10-0.90); Monocytes Percent Auto 11.2 % (2.0-11.0); Neutrophils Percent Auto 67.9 % (50.0-70.0); Platelet Count Result 213 K/mm3 (150-420); Red Blood Count 3.89 M/mm3 (4.70-6.10); White Blood Count 7.4 K/mm3 (4.8-10.8)
[2023-09-23 16:46] LABS: D Dimer 1.14 mg/L (0.19-0.50)
[2023-09-23 17:05] LABS: Alanine Aminotransferase 30 U/L (16-63); Albumin Level 3.3 g/dL (3.4-5.0); Alkaline Phosphatase 92 U/L (46-116); Anion Gap 10 mmol/L (8-16); Aspartate Amino Transferase 23 U/L (15-37); Bilirubin,Total 0.6 mg/dL (0.00-1.00); Blood Urea Nitrogen 26 mg/dL (7-18); Calcium 8.5 mg/dL (8.5-10.1); Carbon Dioxide 26 mmol/L (21-32); Chloride 104 mmol/L (98-108); Estimated Glomerular Filt Rate > 60; Glucose 95 mg/dL (70-99); NT Pro B Type Natriuretic Pept 179 pg/mL (0-450); Osmolality Calculated 294 mOsm/kg (285-295); Potassium 4.5 mmol/L (3.5-5.1); Prostate Specific Antigen 3.5 ng/mL (< OR = 4.0); Sodium 140 mmol/L (136-145); Total Protein 6.6 g/dL (6.4-8.2)
[2023-09-23 17:20] LABS: Immature Reticulocyte Fraction 9.1 % (2.0-16.52); Reticulocyte Hemoglobin Conten 34.4 pg (28.0-35.0); Reticulocyte Percent 1.66 % (0.50-1.50); Reticulocytes Absolute 0.07 M/mm3 (0.02-0.1)
[2023-09-23 17:41] LABS: Ferritin 176 ng/mL (26-388); Iron 40 ug/dL (65-175)
== END 2023-09-23 16:08 | disposition home or self-care (01) ==
PROVIDERS: PCP Internal Medicine; Visit Provider Internal Medicine
DX: C61 Malignant neoplasm of prostate (principal); E78.2 Mixed hyperlipidemia; I10 Essential (primary) hypertension; R60.0 Localized edema; R06.00 Dyspnea, unspecified; D64.9 Anemia, unspecified
CPT/HCPCS: 36415; 71046; 80053; 82728; 83540; 83880; 84153; 85025; 85046; 85380

== ENCOUNTER 2023-09-24 08:11 | Outpatient (CLI) | payer MEDICARE, SELFPAY ==
[2023-09-24 08:38] LABS: Appearance Urine Clear (Clear); Bilirubin Urine Negative (Negative); Blood Urine Negative (Negative); Color Urine Light Yellow (Yellow); Glucose Urine UA Negative (Negative); Ketones Urine Negative (Negative); Leukocyte Esterase Ur Negative (Negative); Nitrate Urine Negative (Negative); Protein Urine Negative (Negative); Specific Grav Ur 1.015 (1.010-1.020); Urobilinogen Urine 0.2 mg/dL (0.2-1.0)
[2023-09-24 08:39] LABS: Add Urine Microscopic? NO
== END 2023-09-24 08:12 | disposition home or self-care (01) ==
PROVIDERS: PCP Internal Medicine; Visit Provider Internal Medicine
DX: C61 Malignant neoplasm of prostate (principal); E78.2 Mixed hyperlipidemia; I10 Essential (primary) hypertension; R60.0 Localized edema; R06.00 Dyspnea, unspecified; N39.0 Urinary tract infection, site not specified
CPT/HCPCS: 81003; 87086

== ENCOUNTER 2023-09-26 08:58 | Outpatient (CLI) | payer MEDICARE, SELFPAY ==
--- NOTE | ~2023-09-26 | CT_ITS ---
Clinical Indication: Dyspnea CT Scan of the Chest with Contrast: Technique: Contiguous sections were acquired throughout the chest after intravenous administration of 100 cc of Omnipaque 350. Dose reduction technique was used on this scan by utilizing automated expos ure control and iterative reconstruction technique. The dose-length product (DLP) was 400.48 mGy-cm. Findings: There is no evidence of any significant mediastinal, hilar or axillary lymphadenopathy. There is no f illing defect in the pulmonary arterial tree to suggest pulmonary embolus. There is no evidence of ao rtic dissection or aneurysm. There is no evidence of pleural or pericardial effusion. Calcified right apical pleural plaque noted. The lungs are clear. No pulmonary nodules or infiltrates are noted. Images through the upper abdomen reveal no abnormalities. Impression: No evidence of pulmonary embolus, aortic dissection, or aortic aneurysm. Calcified apical pleural plaque. Clear lungs. Reviewed, dictated and finalized at [facility]. 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 Calcified apical pleural plaque. Clear lungs.
--- NOTE | ~2023-09-26 | US_ITS ---
US venous doppler [facility] DATE: 09/26/2023 09:33 INDICATION: Bilateral lower extremity swelling. Dyspnea. TECHNIQUE: Real-time and color flow imaging and Doppler analysis of the veins of the lower extremitie s COMPARISON: None FINDINGS: The great saphenous veins are patent. There is spontaneous and phasic flow and normal augme ntation and color flow signal and normal compression of the deep veins of both lower extremities. IMPRESSION: No evidence of deep venous thrombosis of the lower extremities Reviewed, dictated and finalized at [facility]. Reviewed, dictated and finalized at location B. MAKER PLASTER
== END 2023-09-26 08:59 | disposition home or self-care (01) ==
LOC: CHSIMG 09:05
PROVIDERS: PCP Internal Medicine; Visit Provider Internal Medicine
DX: R06.00 Dyspnea, unspecified (principal); M79.89 Other specified soft tissue disorders; J92.9 Pleural plaque without asbestos
CPT/HCPCS: 71275; 93970; Q9967

== ENCOUNTER 2023-11-04 06:57 | Outpatient (CLI) | payer MEDICARE, SELFPAY ==
[2023-11-04 07:10] LABS: Basophils Absolute Auto 0.04 K/mm3 (0.00-0.10); Basophils Percent Auto 0.6 % (0.0-1.0); Eosinophils Absolute Auto 0.21 K/mm3 (0.02-0.50); Eosinophils Percent Auto 2.9 % (1.0-6.0); Hemoglobin 12.6 g/dL (12.4-15.3); Immature Granulocyte Absolute 0.03 K/mm3 (0.00-0.00); Immature Granulocyte Percent A 0.4 % (0.0-0.0); Lymphocytes Absolute Auto 1.11 K/mm3 (1.10-4.50); Lymphocytes Percent Auto 15.4 % (18.0-42.0); Mean Corpuscular HGB Conc 33.2 g/dL (32.0-36.0); Mean Corpuscular Hemoglobin 29.8 pg (27.0-31.0); Mean Corpuscular Volume 89.8 fL (78.0-102.0); Mean Platelet Volume 9.4 fl (8.7-11.0); Monocytes Absolute Auto 0.63 K/mm3 (0.10-0.90); Monocytes Percent Auto 8.8 % (2.0-11.0); Neutrophils Absolute Auto 5.2 K/mm3 (1.7-7.2); Neutrophils Percent Auto 71.9 % (50.0-70.0); Platelet Count Result 212 K/mm3 (150-420); Red Blood Count 4.23 M/mm3 (4.70-6.10); Red Cell Distribution Width 14.5 % (11.6-14.4); White Blood Count 7.2 K/mm3 (4.8-10.8)
[2023-11-04 08:46] LABS: Alanine Aminotransferase 24 U/L (16-63); Albumin Level 3.4 g/dL (3.4-5.0); Alkaline Phosphatase 88 U/L (46-116); Anion Gap 10 mmol/L (8-16); Aspartate Amino Transferase 18 U/L (15-37); Bilirubin,Total 0.9 mg/dL (0.00-1.00); Blood Urea Nitrogen 23 mg/dL (7-18); Calcium 8.4 mg/dL (8.5-10.1); Carbon Dioxide 25 mmol/L (21-32); Chloride 105 mmol/L (98-108); Cholesterol 143 mg/dL (0-200); Estimated Glomerular Filt Rate > 60; Ferritin 153 ng/mL (26-388); Glucose 113 mg/dL (70-99); HDL Direct 64 mg/dL (40-60); Iron 61 ug/dL (65-175); LDL Cholesterol Calculated 73 mg/dL (<130); Osmolality Calculated 294 mOsm/kg (285-295); Potassium 4.3 mmol/L (3.5-5.1); Sodium 140 mmol/L (136-145); Total Protein 6.3 g/dL (6.4-8.2); Triglycerides 30 mg/dL (0-150)
== END 2023-11-04 06:58 | disposition home or self-care (01) ==
PROVIDERS: PCP Internal Medicine; Visit Provider Internal Medicine
DX: E78.2 Mixed hyperlipidemia (principal); D64.9 Anemia, unspecified
CPT/HCPCS: 36415; 80053; 80061; 82728; 83540; 85025

== ENCOUNTER 2024-01-26 06:57 | Outpatient (CLI) | payer MEDICARE, SELFPAY ==
[2024-01-26 07:17] LABS: Basophils Absolute Auto 0.05 K/mm3 (0.00-0.10); Basophils Percent Auto 0.8 % (0.0-1.0); Eosinophils Absolute Auto 0.24 K/mm3 (0.02-0.50); Eosinophils Percent Auto 3.9 % (1.0-6.0); Hematocrit 39.6 % (37.0-46.0); Hemoglobin 13.3 g/dL (12.4-15.3); Immature Granulocyte Absolute 0.02 K/mm3 (0.00-0.00); Immature Granulocyte Percent A 0.3 % (0.0-0.0); Lymphocytes Percent Auto 14.5 % (18.0-42.0); Mean Corpuscular HGB Conc 33.6 g/dL (32-36); Mean Corpuscular Hemoglobin 29.8 pg (27.0-31.0); Mean Corpuscular Volume 88.8 fL (78.0-102.0); Mean Platelet Volume 9.5 fl (8.7-11.0); Monocytes Absolute Auto 0.62 K/mm3 (0.10-0.90); Neutrophils Absolute Auto 4.38 K/mm3 (1.70-7.20); Neutrophils Percent Auto 70.5 % (50.0-70.0); Platelet Count Result 212 K/mm3 (150-420); Red Blood Count 4.46 M/mm3 (4.70-6.10); Red Cell Distribution Width 14.2 % (11.6-14.4); Reticulocyte Hemoglobin Conten 33.7 pg (28.0-35.0); Reticulocyte Percent 1.16 % (0.50-1.50); Reticulocytes Absolute 0.05 M/mm3 (0.02-0.10); White Blood Count 6.2 K/mm3 (4.8-10.8)
[2024-01-26 08:17] LABS: Anion Gap 13 mmol/L (4-12); Blood Urea Nitrogen 29 mg/dL (7-18); Calcium 8.5 mg/dL (8.5-10.1); Carbon Dioxide 24 mmol/L (21-32); Chloride 105 mmol/L (98-108); Estimated Glomerular Filt Rate 57; Ferritin 126 ng/mL (26-388); Glucose 90 mg/dL (70-99); Iron 86 ug/dL (65-175); Osmolality Calculated 299 mOsm/kg (285-295); Potassium 4.1 mmol/L (3.5-5.1); Sodium 142 mmol/L (136-145)
== END 2024-01-26 06:58 | disposition home or self-care (01) ==
LOC: CHSLAB 06:58
PROVIDERS: PCP Internal Medicine; Visit Provider Internal Medicine
DX: D50.9 Iron deficiency anemia, unspecified (principal); I10 Essential (primary) hypertension
CPT/HCPCS: 36415; 80048; 82728; 83540; 85025; 85046

== ENCOUNTER 2024-02-03 09:37 | Outpatient (CLI) | payer MEDICARE, SELFPAY ==
--- NOTE | ~2024-02-03 | CT_ITS ---
CTA neck Ordering provider: Landon Franklin MD History: . BL carotid stenosis . Comparison: None. Technique: CT angiogram neck was performed following timed intravenous injection of contrast. Thin sl ice axial images and reformatted coronal images were obtained. Three dimensional reformatted images o f the neck were also obtained using a [employer] workstation. Radiation reduction technique utilized. FINDINGS: RIGHT CERVICAL CAROTID ARTERY: Mild atheromatous disease of the carotid bulb and proximal internal ca rotid artery without significant stenosis. Percent stenosis per NASCET criteria is 20%. No carotid d issection. Otherwise, no significant atheromatous disease or stenosis of the cervical carotid system. LEFT CERVICAL CAROTID ARTERY: Mild atheromatous disease of the carotid bulb and proximal internal car otid artery with stenosis. Percent stenosis per NASCET criteria is 70%. No carotid dissection. Other jones, no significant atheromatous disease or stenosis of the cervical carotid system. VISUALIZED BILATERAL INTRACRANIAL CAROTID ARTERIES: Normal. VERTEBRAL BASILAR SYSTEM: dominant right vertebral artery. Otherwise, Normal caliber and contour VISUALIZED AORTIC ARCH AND BRANCHING VESSELS: Mild atheromatous disease but no significant stenosis. SOFT TISSUES: Left thyroid nodule measuring 1 x 0.9 cm. CERVICAL SPINE: Age appropriate degenerative changes. IMPRESSION: CTA head and neck. Percent stenosis per NASCET criteria is 70% on the left side. Reviewed, dictated and finalized at location A. IMPRESSION: CTA head and neck. Percent stenosis per NASCET criteria is 70% on the left clare e.
== END 2024-02-03 09:38 | disposition home or self-care (01) ==
LOC: CHSIMG 09:37
PROVIDERS: PCP Internal Medicine; Visit Provider Internal Medicine
DX: I65.22 Occlusion and stenosis of left carotid artery (principal)
CPT/HCPCS: 70498; Q9967

== ENCOUNTER 2024-08-17 06:58 | Outpatient (CLI) | payer MEDICARE, OTHER, SELFPAY ==
[2024-08-17 07:24] LABS: Hematocrit 38.5 % (37.0-46.0); Hemoglobin 13.5 g/dL (12.4-15.3); Mean Corpuscular HGB Conc 35.1 g/dL (32-36); Mean Corpuscular Hemoglobin 31.3 pg (27.0-31.0); Mean Corpuscular Volume 89.1 fL (78.0-102.0); Mean Platelet Volume 9.5 fl (8.7-11.0); Platelet Count Result 233 K/mm3 (150-420); Red Blood Count 4.32 M/mm3 (4.70-6.10); Red Cell Distribution Width 13.7 % (11.6-14.4); White Blood Count 6.2 K/mm3 (4.8-10.8)
[2024-08-17 07:27] LABS: Add Urine Microscopic? NO; Appearance Urine Clear (Clear); Bilirubin Urine Negative (Negative); Blood Urine Negative (Negative); Color Urine Light Yellow (Yellow); Glucose Urine UA Negative (Negative); Ketones Urine Negative (Negative); Leukocyte Esterase Ur Negative (Negative); Nitrate Urine Negative (Negative); Protein Urine Negative (Negative); Urobilinogen Urine 0.2 mg/dL (0.2-1.0); pH Urine 5.5 (5.0-8.0)
[2024-08-17 08:49] LABS: Alanine Aminotransferase 27 U/L (16-63); Albumin Level 3.1 g/dL (3.4-5.0); Alkaline Phosphatase 78 U/L (46-116); Anion Gap 8 mmol/L (4-12); Aspartate Amino Transferase 20 U/L (15-37); Bilirubin,Total 0.9 mg/dL (0.00-1.00); Blood Urea Nitrogen 32 mg/dL (7-18); Carbon Dioxide 28 mmol/L (21-32); Chloride 103 mmol/L (98-108); Cholesterol 236 mg/dL (0-200); Creatine Kinase 35 U/L (39-308); Estimated Glomerular Filt Rate > 60; Glucose 86 mg/dL (70-99); HDL Direct 72 mg/dL (40-60); Iron 128 ug/dL (65-175); LDL Cholesterol Calculated 152 mg/dL (<130); Osmolality Calculated 293 mOsm/kg (285-295); Potassium 4.1 mmol/L (3.5-5.1); Sodium 139 mmol/L (136-145); Total Protein 6.4 g/dL (6.4-8.2); Triglycerides 61 mg/dL (0-150)
[2024-08-17 09:19] LABS: Ferritin 177 ng/mL (26-388)
== END 2024-08-17 06:59 | disposition home or self-care (01) ==
PROVIDERS: PCP Internal Medicine; Visit Provider Internal Medicine
DX: R06.00 Dyspnea, unspecified (principal); I10 Essential (primary) hypertension; D50.9 Iron deficiency anemia, unspecified; C61 Malignant neoplasm of prostate
CPT/HCPCS: 36415; 80053; 80061; 81003; 82550; 82728; 83540; 85027

== ENCOUNTER 2024-10-05 08:32 | Outpatient (CLI) | payer MEDICARE, SELFPAY ==
--- OUTSIDE RECORDS SUMMARY | 2024-10-05 08:42 | XMS_ITS | Patient Health Record ---
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 Name Role Phone Ok Franklin Unavailable Unavailable DENISE GUERRA Unavailable [phone] KATHE DOYLE Unavailable [phone] Allergies No Known Allergies Reason For Referral No Information Vital Signs Height-cm 180.34 cm 01/12/2024 Weight-kg 87.09 kg 01/12/2024 Height 71 in 01/12/2024 Weight 192 lbs 01/12/2024 BMI 26.78 kg/m2 01/12/2024 Encounters Encounter Location Date Provider [place] [facility] [place] [address] [place], [place] [id number] 11/10/2023 KATHE DOYLE Other hammer toe(s) (acquired), right foot M20.41 ; Tinea unguium B35.1 ; Other hammer toe(s) (acquired), left foot M20.42 ; Pain in right toe(s) M79.674 ; Pain in left toe(s) M79.675 ; Unspecified atherosclerosis of [place] arteries of extremities, bilateral legs I70.203 and Acquired keratosis [keratoderma] palmaris et plantaris L85.[address] [id number] 01/12/2024 KATHE DOYLE Other hammer toe(s) (acquired), right foot M20.41 ; Tinea unguium B35.1 ; Other hammer toe(s) (acquired), left foot M20.42 ; Pain in right toe(s) M79.674 ; Pain in left toe(s) M79.675 ; Unspecified atherosclerosis of [place] arteries of extremities, bilateral legs I70.203 ; Acquired keratosis [keratoderma] palmaris et plantaris L85.1 ; Pain in right foot M79.671 and Pain in left foot M79.[address] [id number] 04/26/2024 KATHE YANIRA Other hammer toe(s) (acquired), right foot M20.41 ; Tinea unguium B35.1 ; Other hammer toe(s) (acquired), left foot M20.42 ; Pain in right toe(s) M79.674 ; Pain in left toe(s) M79.675 ; Unspecified atherosclerosis of [place] arteries of extremities, bilateral legs I70.203 and Acquired keratosis [keratoderma] palmaris et plantaris L85.[address] [id number] 06/28/2024 KATHE DOYLE Other hammer toe(s) (acquired), right foot M20.41 ; Tinea unguium B35.1 ; Other hammer toe(s) (acquired), left foot M20.42 ; Pain in right toe(s) M79.674 ; Pain in left toe(s) M79.675 ; Unspecified atherosclerosis of [place] arteries of extremities, bilateral legs I70.203 and Acquired keratosis [keratoderma] palmaris et plantaris L85.[address] [id number] 09/13/2024 DENISE GUERRA Tinea unguium B35.1 ; Pain in right foot M79.671 ; Pain in left foot M79.672 ; Atherosclerosis of [place] arteries of extremities with intermittent claudication, bilateral legs I70.213 and Acquired keratosis [keratoderma] palmaris et plantaris L85.1 Assessments Encounter Date Diagnosis (ICD Code) Assessment Notes Treatment Notes Treatment Clinical Notes Section Notes 11/10/2023 Other hammer toe(s) (acquired), right foot (ICD-10 - M20.41) The patient was educated regarding how to mechanically stabilize their deformity. The patient was given education about shoe recommendations specific for the condition. The patient was educated about custom orthotics and how appropriate shoes and orthotics can prevent further worsening of the deformity. The patient was educated about how bad shoe habits can worsen the condition. NSAIDS, P.T., injections and other conservative treatments were discussed. Both surgical and non surgical treatments were discussed, but conservative options were emphasized. 11/10/2023 Tinea unguium (ICD-10 - B35.1) Aseptic debridement of elongated thickened nails x 10 using sterile nippers, nails were debrided in length and thickness by 30% utilizing a nail nipper without incident. The patient was educated regarding all treatment options that include topical and oral antifungal treatments. I discussed the options of taking a sample of the nail to confirm diagnosis. Nail clippings were not sent for pathology analysis. The patient was educated why and how the fungal infection evolved in their feet and the patient was given information regarding how to prevent further infection. The patient was told to keep feet dry and change socks. The patient was told to be careful with old shoes and excessive sweating. The patient was educated regarding both OTC and prescription treatments. 01/12/2024 Tinea unguium (ICD-10 - B35.1) Aseptic debridement of elongated thickened nails x 10 using sterile nippers, nails were debrided in length and thickness by 30% utilizing a nail nipper without incident. The patient was educated regarding all treatment options that include topical and oral antifungal treatments. I discussed the options of taking a sample of the nail to confirm diagnosis. Nail clippings were not sent for pathology analysis. The patient was educated why and how the fungal infection evolved in their feet and the patient was given information regarding how to prevent further infection. The patient was told to keep feet dry and change socks. The patient was told to be careful with old shoes and excessive sweating. The patient was educated regarding both OTC and prescription treatments. 01/12/2024 Other hammer toe(s) (acquired), right foot (ICD-10 - M20.41) The patient was educated regarding how to mechanically stabilize their deformity. The patient was given education about shoe recommendations specific for the condition. The patient was educated about custom orthotics and how appropriate shoes and orthotics can prevent further worsening of the deformity. The patient was educated about how bad shoe habits can worsen the condition. NSAIDS, P.T., injections and other conservative treatments were discussed. Both surgical and non surgical treatments were discussed, but conservative options were emphasized. 04/26/2024 Tinea unguium (ICD-10 - B35.1) Aseptic debridement of elongated thickened nails x 10 using sterile nippers, nails were debrided in length and thickness by 30% utilizing a nail nipper without incident. The patient was educated regarding all treatment options that include topical and oral antifungal treatments. I discussed the options of taking a sample of the nail to confirm diagnosis. Nail clippings were not sent for pathology analysis. The patient was educated why and how the fungal infection evolved in their feet and the patient was given information regarding how to prevent further infection. The patient was told to keep feet dry and change socks. The patient was told to be careful with old shoes and excessive sweating. The patient was educated regarding both OTC and prescription treatments. 04/26/2024 Other hammer toe(s) (acquired), right foot (ICD-10 - M20.41) The patient was educated regarding how to mechanically stabilize their deformity. The patient was given education about shoe recommendations specific for the condition. The patient was educated about custom orthotics and how appropriate shoes and orthotics can prevent further worsening of the deformity. The patient was educated about how bad shoe habits can worsen the condition. NSAIDS, P.T., injections and other conservative treatments were discussed. Both surgical and non surgical treatments were discussed, but conservative options were emphasized. 06/28/2024 Other hammer toe(s) (acquired), right foot (ICD-10 - M20.41) The patient was educated regarding how to mechanically stabilize their deformity. The patient was given education about shoe recommendations specific for the condition. The patient was educated about custom orthotics and how appropriate shoes and orthotics can prevent further worsening of the deformity. The patient was educated about how bad shoe habits can worsen the condition. NSAIDS, P.T., injections and other conservative treatments were discussed. Both surgical and non surgical treatments were discussed, but conservative options were emphasized. 06/28/2024 Tinea unguium (ICD-10 - B35.1) Aseptic debridement of elongated thickened nails x 10 using sterile nippers, nails were debrided in length and thickness by 30% utilizing a nail nipper without incident. The patient was educated regarding all treatment options that include topical and oral antifungal treatments. I discussed the options of taking a sample of the nail to confirm diagnosis. Nail clippings were not sent for pathology analysis. The patient was educated why and how the fungal infection evolved in their feet and the patient was given information regarding how to prevent further infection. The patient was told to keep feet dry and change socks. The patient was told to be careful with old shoes and excessive sweating. The patient was educated regarding both OTC and prescription treatments. 09/13/2024 Tinea unguium (ICD-10 - B35.1) Nails 1-5 Bilateral were debrided extensively with nail nippers and emery board, reducing length and girth to pink healthy tissue with any subungual debris and necrotic tissue removed 09/13/2024 Pain in right foot (ICD-10 - M79.671) 09/13/2024 Pain in left foot (ICD-10 - M79.672) 06/28/2024 Other hammer toe(s) (acquired), left foot (ICD-10 - M20.42) 04/26/2024 Other hammer toe(s) (acquired), left foot (ICD-10 - M20.42) 01/12/2024 Other hammer toe(s) (acquired), left foot (ICD-10 - M20.42) 11/10/2023 Other hammer toe(s) (acquired), left foot (ICD-10 - M20.42) 11/10/2023 Pain in right toe(s) (ICD-10 - M79.674) 01/12/2024 Pain in right toe(s) (ICD-10 - M79.674) 04/26/2024 Pain in right toe(s) (ICD-10 - M79.674) 06/28/2024 Pain in right toe(s) (ICD-10 - M79.674) 09/13/2024 Atherosclerosis of [place] arteries of extremities with intermittent claudication, bilateral legs (ICD-10 - I70.213) 09/13/2024 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.1) A total of 1 corns or calluses, as described in the note above, were cut and pared utilizing a #15 blade 06/28/2024 Pain in left toe(s) (ICD-10 - M79.675) 04/26/2024 Pain in left toe(s) (ICD-10 - M79.675) 01/12/2024 Pain in left toe(s) (ICD-10 - M79.675) 11/10/2023 Pain in left toe(s) (ICD-10 - M79.675) 01/12/2024 Unspecified atherosclerosis of [place] arteries of extremities, bilateral legs (ICD-10 - I70.203) Patient educated on risks and aggravating factors of PVD, including conservative treatment options such as a diet and exercise regimen to aid in slowing progression of vascular disease 11/10/2023 Unspecified atherosclerosis of [place] arteries of extremities, bilateral legs (ICD-10 - I70.203) Patient educated on risks and aggravating factors of PVD, including conservative treatment options such as a diet and exercise regimen to aid in slowing progression of vascular disease 04/26/2024 Unspecified atherosclerosis of [place] arteries of extremities, bilateral legs (ICD-10 - I70.203) Patient educated on risks and aggravating factors of PVD, including conservative treatment options such as a diet and exercise regimen to aid in slowing progression of vascular disease 06/28/2024 Unspecified atherosclerosis of [place] arteries of extremities, bilateral legs (ICD-10 - I70.203) Patient educated on risks and aggravating factors of PVD, including conservative treatment options such as a diet and exercise regimen to aid in slowing progression of vascular disease 06/28/2024 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 After removal of overlying extensive hyperkeratosis, healthy tissue was noted and care was taken to assure that no undermining or probing was present. It should be noted that no probing was noted and no infection or drainage was noted. 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 After removal of overlying extensive hyperkeratosis, healthy tissue was noted and care was taken to assure that no undermining or probing was present. It should be noted that no probing was noted and no infection or drainage was noted. 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 After removal of overlying extensive hyperkeratosis, healthy tissue was noted and care was taken to assure that no undermining or probing was present. It should be noted that no probing was noted and no infection or drainage was noted. 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 After removal of overlying extensive hyperkeratosis, healthy tissue was noted and care was taken to assure that no undermining or probing was present. It should be noted that no probing was noted and no infection or drainage was noted. 01/12/2024 Pain in right foot (ICD-10 - M79.671) 01/12/2024 Pain in left foot (ICD-10 - M79.672) Plan Of Treatment Next Appt Details Provider Name:DENISE SHELLYKeyana, 08:10:00 AM, [address] [place] [address], [phone], Insurance Providers Payer Name Payer Address Payer Phone Subscriber Number Group Number Insured Name Patient Relationship to Insured Coverage Start Date Coverage End Date Medicare Part B [facility] [address] [place] [phone] [id number] Izaiah Hayes Self - patient is the insured [place] [employer] [address] [place] [id number] Izaiah Hayes Self - patient is the insured
--- OUTSIDE RECORDS SUMMARY | 2024-10-05 08:42 | XMS_ITS | Encounter Summary ---
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 No / Unsure 08/27/2021 1:55 PM FOOD AND NUTRITION SERVICES ASSISTANT documented as of this encounter Plan of Treatment Upcoming Encounters Date Type Department Care Team (Late Contact Info) Description 08/20/2025 1:00 PM FOOD AND NUTRITION SERVICES ASSISTANT Appointment [facility] V[facility] - [facility] [address] [place] [address] Kelsi Haile APRN, PATCHER-C [address] [address] 08/20/2025 2:00 PM FOOD AND NUTRITION SERVICES ASSISTANT Office Visit [facility] [address] [place] [address] Kelsi Haile APRN, PATCHER-C [address] [address] documented as of this encounter Visit Diagnoses Not on filedocumented in this encounter Care Teams Pipe Line Maintenance Supervisor Relationship Specialty Start Date End Date Landon Franklin MD [address] [place] [address] PCP - General INTERNAL MEDICINE 08/07/20 Nader Burns MD [address] [place] [address] [place] [employer] Teacher CARDIOVASCULAR DISEASE 08/07/20 Kelsi Haile APRN, PATCHER-C [address] [phone] NURSE PRACTITIONER 10/10/23 Aleksandr Jeffery MD [address] [place] [address] Surgeon COLON/RECTAL SURGERY 10/10/23 Remberto Malin MD [address] [phone] Consulting Physician INTERVENTIONAL CARDIOLOGY 09/03/24 documented as of this encounter
--- OUTSIDE RECORDS SUMMARY | 2024-10-05 08:42 | XMS_ITS | Encounter Summary ---
Author Organization [facility] Address [address] [place] [address] Care Team Providers Care Promotions Team Leader Name Role Phone Landon Franklin MD Primary Care Provider [phone] Nader Burns MD Unavailable Unavailabl e Kelsi Haile APRN, WEIGHER AND CRUSHER-C Unavailable Aleksandr Jeffery MD Unavailable [phone] Remberto Malin MD Unavailable [phone] Encounter Details Date Type Department Care Team (Late Contact Info) Description 03/19/2021 Abstract [facility] [address] [place] [phone] Nader Burns MD Social History Tobacco Use Types Packs/Day Years Used Date Smoking Tobacco: Never Smokeless Tobacco: Never Sex and Gender Information Value Date Recorded Sex Assigned at Not on file Legal 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 Gender Identity Not on file Sexual Orientation Not on file documented as of this encounter Plan of Treatment Upcoming Encounters Date Type Department Care Team (Late Contact Info) Description 08/20/2025 1:00 PM LIQUEFIED NATURAL GAS OPERATOR Appointment [facility] Vascular Ultrasound - [facility] [address] [place] [address] Kelsi Haile APRN, WEIGHER AND CRUSHER-C [address] [facility] [address] [place] [phone] 08/20/2025 2:00 PM 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 NATURAL GAS OPERATOR Office Visit [facility] [address] [place] [phone] Kelsi Haile, AGRICULTURAL MECHANIC, WEIGHER AND CRUSHER-C [address] [facility] [address] [place] [address] documented as of this encounter Procedures Procedure Name Priority Date/Time Associated Diagnosis Comments CMP (ABSTRACTED LAB) Routine 03/18/2021 CBC (OUTSIDE LAB) Routine 03/18/2021 LIPID PANEL Routine 03/18/2021 documented in this encounter Results * CBC (OUTSIDE LAB) (03/18/2021) Pathologist [facility] WBC 7.4 4.8 - 10.8 HGB 12.6 12.4 - 15.3 HCT 36.7 37.0 - 46.0 PLT 243 150 - 420 RBC 3.97 4.70 - 6.10 03/18/2021 Landon Franklin MD LAB-OUTSIDE/ABSTRACTED Final Result * LIPID PANEL (03/18/2021) Pathologist [facility] CHOLESTEROL 144 0 - 200 HDL 63 40 - 60 TRIGLYCERIDES 33 0 - 150 LDL (CALCULATED) 74 <130 03/18/2021 us Landon Franklin MD LABORATORY Final Result * CMP (ABSTRACTED LAB) (03/18/2021) Pathologist [facility] SODIUM S/P/B 142 136 - 145 POTASSIUM S/P/B 4.4 3.5 - 5.1 CHLORIDE S/P/B 107 98 - 108 CO2 26 21 - 32 BUN 24 7 - 18 CREATININE S/P/B 1.09 0.7 - 1.3 CALCIUM S/P/B 8.8 8.5 - 10.1 GLUCOSE 90 70 - 99 mg/dL TOTAL PROTEIN S/P/B 6.4 6.4 - 8.2 ALBUMIN S/P/B 3.4 3.4 - 5.0 AST 34 15 - 37 ALT 61 16 - 63 ALKALINE PHOSPHATASE S/P/B 113 46 - 116 BILIRUBIN TOTAL S/P/B 0.7 0.00 - 1.00 03/18/2021 Landon Franklin MD LAB-OUTSIDE/ABSTRACTED Final Result documented in this encounter Visit Diagnoses Not on filedocumented in this encounter Care Teams Promotions Team Leader Relationship Specialty Start Date End Date Landon Franklin MD [address] [place] [address] PCP - General INTERNAL MEDICINE 08/07/20 Nader Burns MD [address] [place] [address] [employer] Hand CARDIOVASCULAR DISEASE 08/07/20 Kelsi Haile, AGRICULTURAL MECHANIC, WEIGHER AND CRUSHER-C [address] [phone] NURSE PRACTITIONER 10/10/23 Aleksandr Jeffery MD [address] [place] [address] Surgeon COLON/RECTAL SURGERY 10/10/23 Remberto Malin MD [address] [facility] [address] [phone] Consulting Physician INTERVENTIONAL CARDIOLOGY 09/03/24 documented as of this encounter
--- OUTSIDE RECORDS SUMMARY | 2024-10-05 08:43 | XMS_ITS ---
Author Organization [facility] Address [address] [place], [place] [address] Care Team Providers Care Electrotyper Apprentice Name Role Phone Ok Franklin Unavailable Unavailable KATHE DOYLE Unavailable [phone] REASON FOR VISIT *General care Encounters Encounter Location Date Provider Diagnosis [address] [id number] 09/06/2024 KATHE DOYLE Plan Of Treatment Next Appt Details Provider Name:DENISE GUERRA, 08:10:00 AM, [address] [place] [address], [id number], Progress Notes * FREDDYIzaiahDOB:1945 ( 79 yo M)Acc No.[id number]:09/06/2024 Patient: Izaiah ALBRIGHT Provider: Elias DOYLE :1945 A ge:79 Y S ex:Male Date:09/06/2024 Address:[address] [id number] Subjective: * Chief Complaints: * 1 . *General care. * Medical History: Objective: * Vitals: Assessment: Plan: * Treatment: * Billing Information: * Visit Code: * Procedure Codes: * Electronic signature of SHILA DOYLE DPM on 10/05/2024 at 08:43 AM ACID ADJUSTER Sign off status: Pending * Provider: Elias DOYLE Date: 0 09/06/2024 Generated for Kaylee steinberg/Tristen/Dale on: 0 10/05/2024 08:43 AM ACID ADJUSTER
--- OUTSIDE RECORDS SUMMARY | 2024-10-05 08:43 | XMS_ITS | Patient Health Summary ---
Author Organization [facility] Address [address] [place] [address] Care Team Providers Care Dance Historian Name Role Phone Landon Franklin MD Primary Care Provider [phone] Note from [facility],non-owned Affiliates and Associated Physician Practices is amultiple site organization consisting of ambulatory clinics and hospital sitesin [place], [place], [place] and [place]. This disclosure is being madepursuant to the Care Everywhere program and may not contain all information available regarding this patient. Last updated 18.[facility] Frequency Allergies No known active allergies Medications * Be aware that medications may not be up to date on this document. Alwaysverify current medications with the patient. * vitamin D3-cholecalciferol (CHOLECACIFEROL) 1000 UNITS tablet Take 2,500 Units by mouth once daily * oxyCODONE-acetaminophen (PERCOCET) 5-325 MG tablet(Started 09/26/2016) Take 1 Tab by mouth every 4 hours as needed for Pain * aspirin (ASPIRIN) 325 MG tablet(Started 09/26/2016) Take 1 Tab by mouth 2 times daily after meals * nystatin (MYCOSTATIN) 460853 UNIT/GM powder(Started 09/26/2016) Apply to affected area 3 times daily * polyethylene glycol 3350 (MIRALAX) packet(Started 09/26/2016) Take 17 g by mouth once daily as needed for Constipation * senna-docusate (SENOKOT-S) 8.6-50 MG tablet(Started 09/26/2016) Take 2 Tabs by mouth once daily * tamsulosin (FLOMAX) 0.4 MG capsule(Started 09/26/2016) Take 1 Cap by mouth at bedtime Take 30 minutes after a meal at the same time each day. * Benzocaine-Menthol (THROAT LOZENGE)(Started 09/26/2016) Take 1 Lozenge by mouth as needed for Sore Throat Active Problems Problem Noted Date Diagnosed Date Dysuria 09/25/2016 Hypertension 09/24/2016 Post-traumatic osteoarthritis of right hip Social History Tobacco Use Types Packs/Day Years Used Date Smoking Tobacco: Never Alcohol Use Standard Drinks/Week Comments No 0 (1 standard drink = 0.6 oz pur e alcohol) Sex and Gender Information Value Date Recorded Sex Assigned at Not on file Gender Identity Not on file Sexual Orientation Not on file Last Filed Vital Signs Vital Sign Reading Time Taken Comments Blood Pressure 118/75 09/26/2016 12:33 PM [employer] Pulse 83 09/26/2016 12:33 PM [employer] Temperature 36.6 C (97.9 F) 09/26/2016 12:33 PM [employer] Respiratory Rate 18 09/26/2016 12:33 PM [employer] Oxygen Saturation 99% 09/26/2016 12:33 PM [employer] Inhaled Oxygen Concentration - - Weight 81.2 kg (179 lb) 10/26/2016 10:26 AM [employer] Height 185.4 cm (6' 1 ) 10/26/2016 10:26 AM [employer] Body Mass Index 23.62 10/26/2016 10:26 AM [employer] Medical Devices Implanted Type 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 Electrician Supervisor Device Identifier Shelf Expiration Date Model / Serial / Lot Shell Actb 58mm 3 Hl Poly R3 Std Implanted:Qty: 1 on 09/24/2016 by Francisco Shankar MD at [facility] Right: Hip [employer] 06/23/2026 [id number] / / [id number] Acetabular Liner Uhmwpe Implanted:Qty: 1 on 09/24/2016 by Farncisco Shankar MD at [facility] Right: Hip [employer] 07/29/2024 [id number] / / [id number] Screw 6.5mm 40mm Sphr Hip Actb Reflc Implanted:Qty: 1 on 09/24/2016 by Francisco Shankar MD at [facility] Right: Hip [employer] 06/06/2025 [id number] / / [id number] Stem Standard With Ti/Eason Implanted:Qty: 1 on 09/24/2016 by Francisco Shankar MD at [facility] Right: Hip [employer] 06/08/2023 [id number] / / [id number] Ceramic Modular Femoral Head Implanted:Qty: 1 on 09/24/2016 by Francisco Shankar MD at [facility] Right: Hip [employer] 07/13/2026 [id number] / / [id number] Cal Uncem Hip All Inclusive Implanted:Qty: 1 on 09/24/2016 by Francisco Shankar MD at [facility] BILL ONLY UNCEM HIP ALL INCLUSIVE SNORTH / / Procedures * XR PELVIS W RIGHT HIP 2VW(Performed 10/26/2016) * XR FOOT RIGHT 3VW OR MORE(Performed 10/26/2016) * CARDIAC EKG ORDER(Performed 09/27/2016) * CARDIAC RHYTHM STRIP ORDER(Performed 09/27/2016) * APHERESIS/TRANSFUSION ORDER(Performed 09/27/2016) * LAB RESULTS ORDER(Performed 09/27/2016) * IMAGING/RADIOLOGY/XRAY RESULTS ORDER(Performed 09/27/2016) * HGB HCT PANEL(Performed 09/26/2016) * BASIC METABOLIC PANEL (CALCIUM TOTAL)(Performed 09/26/2016) Performed for H/O total hip arthroplasty, right * HGB HCT PANEL(Performed 09/26/2016) Performed for H/O total hip arthroplasty, right * HGB HCT PANEL(Performed 09/25/2016) * CULTURE MRSA(Performed 09/25/2016) * URINALYSIS REFLEX MICROSCOPIC REFLEX CULTURE(Performed 09/25/2016) * CULTURE URINE(Performed 09/25/2016) * HGB HCT PANEL(Performed 09/25/2016) * BASIC METABOLIC PANEL (CALCIUM TOTAL)(Performed 09/25/2016) * HGB HCT PANEL(Performed 09/25/2016) Performed for H/O total hip arthroplasty, right * IP CONSULT TO INTERNAL MEDICINE(Performed 09/25/2016) Performed for H/O total hip arthroplasty, right * XR PELVIS 1 OR 2VW(Performed 09/24/2016) Performed for H/O total hip arthroplasty, right * ENDOTRACHEAL TUBE NOTE(Performed 09/24/2016) * EXCISION/RESECTION HETEROTOPIC OSSIFICATION HIP(Performed 09/24/2016) Performed for Osteoarthritis of right hip, unspecified osteoarthritis type * CAPSULOTOMY/CAPSULECTOMY RELEASE MUSCLE HIP(Performed 09/24/2016) Performed for Osteoarthritis of right hip, unspecified osteoarthritis type * ARTHROPLASTY TOTAL HIP ALONZO/NEPHEW(Performed 09/24/2016) Performed for Osteoarthritis of right hip, unspecified osteoarthritis type * CULTURE MSSA/MRSA(Performed 09/20/2016) Performed for MSSA (methicillin susceptible Staphylococcus aureus), Abnormal laboratory test result * TYPE + SCREEN PANEL(Performed 09/13/2016) Performed for Pre-op testing * URINALYSIS REFLEX MICROSCOPIC REFLEX CULTURE(Performed 09/13/2016) Performed for Pre-op testing * COMPREHENSIVE METABOLIC PANEL(Performed 09/13/2016) Performed for Pre-op testing * CBC W AUTO DIFFERENTIAL(Performed 09/13/2016) Performed for Pre-op testing * CULTURE MSSA/MRSA(Performed 09/13/2016) Performed for Pre-op testing * BLOOD TYPE VERIFICATION(Performed 09/13/2016) * C-REACTIVE PROTEIN(Performed 08/10/2016) * ERYTHROCYTE SEDIMENTATION RATE(Performed 08/10/2016) * XR PELVIS W RIGHT HIP 2VW(Performed 08/10/2016) * XR KNEE RIGHT 4VW OR MORE(Performed 07/09/2015) Performed for Bilateral knee pain Results * XR PELVIS W RIGHT HIP 2VW (10/26/2016 10:22 AM [employer]) Only the most recent of2 resultswithin the time period is included. Anatomical Region Laterality Modality Other Impressions 10/26/2016 10:40 AM [employer] IMPRESSION: Interval right total hip arthroplasty. This report was electronically signed by ROGELIO DE LOS SANTOS MD on 10/26/2016 10:40 AM . Narrative 10/26/2016 10:40 AM [employer] Exam: XR HIP RIGHT 2-3 VW W/ PELVIS History: vickey Comparison: 08/10/2016 Findings: Surgical changes of open reduction and internal fixation of a right acetabular fracture are redemonstrated. Since the prior examination there has been right total hip arthroplasty. The prosthetic components are intact and there is no suspicious periprosthetic lucency. No acute right hip fracture or dislocation is present. The pelvic radiograph demonstrates a normal left hip joint space. The sacroiliac joints and pubic symphysis are not widened. There is no displaced pelvic fracture. Surgical material projects over the pelvis. Procedure Note Rogelio De Los Santos MD - 11/25/2017 Exam: XR HIP RIGHT 2-3 VW W/ PELVIS History: vickey Comparison: 08/10/2016 Findings: Surgical changes of open reduction and internal fixation of a rightacetabular fracture are redemonstrated. Since the prior examination therehas been right total hip arthroplasty. The prosthetic components areintact and there is no suspicious periprosthetic lucency. No acute right hip fracture or dislocation ispresent. The pelvic radiograph demonstrates a normal left hip joint space. Thesacroiliac joints and pubic symphysis are not widened. There is nodisplaced pelvic fracture. Surgical material projects over the pelvis. IMPRESSION IMPRESSION: Interval right total hip arthroplasty. This report was electronically signed by ROGELIO DE LOS SANTOS MD on 10/26/201610:40 AM . Francisco Shankar MD DIAGNOSTIC IMAGING ORDERABLES * XR FOOT RIGHT 3VW OR MORE (10/26/2016 10:17 AM [employer]) Anatomical Region Laterality Modality Ankle / Foot Other Impressions 10/26/2016 10:38 AM [employer] IMPRESSION: No acute osseous abnormality. This report was electronically signed by ROGELIO DE LOS SANTOS MD on 10/26/2016 10:38 AM . Narrative 10/26/2016 10:38 AM [employer] Exam: XR FOOT RIGHT 3+ VW History: foot pain Comparison: None. Findings: No acute fracture or dislocation is present. There is minimal degenerative change in the toes. The second metatarsal head is flattened in contour. Screws are seen at the medial malleolus and a plate and screws are seen at the distal fibula. There is a small Sunita deformity. Procedure Note Rogelio De Los Santos MD - 11/25/2017 Exam: XR FOOT RIGHT 3+ VW History: foot pain Comparison: None. Findings: No acute fracture or dislocation is present. There is minimal degenerativechange in the toes. The second metatarsal head is flattened in contour.Screws are seen at the medial malleolus and a plate and screws are seen atthe distal fibula. There is a small Sunita deformity. IMPRESSION IMPRESSION: No acute osseous abnormality. This report was electronically signed by ROGELIO DE LOS SANTOS MD on 10/26/201610:38 AM . Francisco Shankar MD DIAGNOSTIC IMAGING ORDERABLES * CARDIAC EKG ORDER (09/27/2016 9:33 PM [employer]) Narrative 09/27/2016 9:33 PM [employer] Ordered by an unspecified provider. Scanned Document CARDIAC SERVICES ORD ERABLES * CARDIAC RHYTHM STRIP ORDER (09/27/2016 9:33 PM [employer]) Narrative 09/27/2016 9:33 PM [employer] Ordered by an unspecified provider. Scanned Document CARDIAC SERVICES ORD ERABLES * APHERESIS/TRANSFUSION ORDER (09/27/2016 9:33 PM [employer]) Narrative 09/27/2016 9:33 PM [employer] Ordered by an unspecified provider. Scanned Document NURSING - VITAL SIGN S AND ASSESSMENT * LAB RESULTS ORDER (09/27/2016 9:33 PM [employer]) Narrative 09/27/2016 9:33 PM [employer] Ordered by an unspecified provider. Scanned Document LAB - THERAPEUTIC DR UG MONITORING ORDERABLES * IMAGING/RADIOLOGY/XRAY RESULTS ORDER (09/27/2016 9:32 PM [employer]) Anatomical Region Laterality Modality Other Narrative 09/27/2016 9:32 PM [employer] Ordered by an unspecified provider. Scanned Document IMAGING * (ABNORMAL) HGB HCT PANEL (09/26/2016 10:43 AM [employer]) Only the most recent of5 resultswithin the time period is included. Hemoglobin 10.4(L) 12.0 - 17.6 gm/dL 09/26/2016 11:05 AM [employer] [facility] Hematocrit 30.6(L) 35.2 - 51.7 % 09/26/2016 11:05 AM [employer] [facility] Blood BLOOD SPECIMEN / Unknown Lab Venipuncture / Unknown 09/26/2016 10:43 AM [employer] 09/26/2016 10:57 AM [employer] Carol Kingsley MD LAB - HEMATOLOGY KATHERINE CHAMORRO Performing Organization Address [facility] Co de Phone Number [facility] [address] [place] [address] * (ABNORMAL) BASIC METABOLIC PANEL (CALCIUM TOTAL) (09/26/2016 4:07 AM [employer]) Only the most recent of2 resultswithin the time period is included. Pathologist [facility] Glucose 119(H) 74 - 106 mg/dL 09/26/2016 4:49 AM [facility] Sodium 136 136 - 145 mmol/L 09/26/2016 4:49 AM [facility] Potassium 4.0 3.5 - 5.1 mmol/L 09/26/2016 4:49 AM [facility] Chloride 103 98 - 107 mmol/L 09/26/2016 4:49 AM [facility] CO2 26 22 - 31 mmol/L 09/26/2016 4:49 AM [facility] Calcium 8.0(L) 8.5 - 10.1 mg/dL 09/26/2016 4:49 AM [facility] Anion Gap 7(L) 8 - 16 mmol/L 09/26/2016 4:49 AM [facility] BUN 24(H) 7 - 21 mg/dL 09/26/2016 4:49 AM [facility] Creatinine 1.30 0.50 - 1.30 mg/dL 09/26/2016 4:49 AM [facility] eGFR by MDRD 54 mL/min/1.7 3m2 09/26/2016 4:49 AM [facility] eGFR by MDRD >60 mL/min/1.7 3m2 09/26/2016 4:49 AM [facility] Blood BLOOD SPECIMEN / Unknown Lab Venipuncture / Unknown 09/26/2016 4:07 AM [employer] 09/26/2016 4:21 AM [employer] Bertram Smith MD LAB - CHEMISTRY MAGDALENO WYATT Performing Organization Address City/[facility]/ZIP Co de Phone Number [facility] [address] [place] [address] * CULTURE MRSA (09/25/2016 6:40 PM [employer]) Culture Negative for methicillin-resist ant Staphylococcus aureus (MRSA) CAREY 09/27/2016 6:43 AM [employer] [facility]CRO[facility]Y Microbiology SPECIMEN FROM NASAL FOSSAE / Unknown Collection / Unknown 09/25/2016 6:40 PM [employer] 09/25/2016 7:51 PM [employer] Carol Kingsley MD LAB - MICROBIOLOGY O RDERABLES [facility] [address] [place] [phone] * (ABNORMAL) URINALYSIS ROUTINE W/REFLEX TO CULTURE (09/25/2016 12:16 PM [employer]) Only the most recent of2 resultswithin the time period is included. Color UA Yellow Straw, Yellow, Dark Yellow 09/25/2016 12:53 PM [employer] [facility] Clarity UA Clear 09/25/2016 12:53 PM [employer] [facility] Specific [place] UA 1.014 1.005 - 1.030 09/25/2016 12:53 PM [employer] [facility] pH UA 6.0 5.0 - 8.0 pH 09/25/2016 12:53 PM [employer] [facility] Protein UA Negative Negative 09/25/2016 12:53 PM [employer] [facility] Blood UA Negative Negative 09/25/2016 12:53 PM [employer] [facility] Leukocyte UA Trace(A) Negative 09/25/2016 12:53 PM [employer] [facility] Nitrite UA Negative Negative 09/25/2016 12:53 PM [employer] [facility] Glucose UA Negative Negative 09/25/2016 12:53 PM [employer] [facility] Ketone UA Negative Negative 09/25/2016 12:53 PM [employer] [facility] Bilirubin UA Negative Negative 09/25/2016 12:53 PM [employer] [facility] Urobilinogen UA 0.2 0.1 - 1.0 EU/dL 09/25/2016 12:53 PM [employer] [facility] WBC UA Auto 10-20(A) 0-2, 2-5 # /hpf 09/25/2016 12:53 PM [employer] [facility] RBC UA Auto 2-5 0-2, 2-5 # /hpf 09/25/2016 12:53 PM [employer] [facility] Epithelial Cell UA Auto 0-2 0-2, 2-5 # /hpf 09/25/2016 12:53 PM [employer] [facility] Reflex Status Culture to follow 09/25/2016 12:53 PM [employer] [facility] Urine URINE SPECIMEN OBTAINED BY CLEAN CATCH PROCEDURE / Unknown Collection / Unknown 09/25/2016 12:16 PM [employer] 09/25/2016 12:38 PM [employer] Carol Kingsley MD LAB - URINALYSIS ORD ERABLES Performing Organization Address City/[facility]/ZIP Co de Phone Number [facility] [address] [place] [address] * CULTURE URINE (09/25/2016 12:16 PM [employer]) Culture No growth (<1,000 CFU/mL) CAREY 09/26/2016 3:15 PM [employer] [facility] Urine URINE SPECIMEN OBTAINED BY CLEAN CATCH PROCEDURE / Unknown Collection / Unknown 09/25/2016 12:16 PM [employer] 09/25/2016 12:38 PM [employer] Carol Kingsley MD LAB - MICROBIOLOGY O RDERABLES [facility] [address] [place] [phone] * IP CONSULT TO INTERNAL MEDICINE (09/25/2016 12:48 AM [employer]) Narrative Procedure Note Hyacinth Orellana APRN-GOMEZ - 09/24/2016 4:49 PM CST Full note dictated [id number] Imp: Patient Active Problem List Diagnosis Post-traumatic osteoarthritis of right hip Hypertension Plan: 1 right hip arthritis 2 PPx 3 HTN 4 F/E/N Bertram Smith MD INPATIENT CONSULT OR DERABLES * XR PELVIS 1 OR 2 VW (IN PACU) (09/24/2016 2:06 PM [employer]) Anatomical Region Laterality Modality Pelvis Radiographic Elena ging 09/24/2016 2:22 PM [employer] Impressions 09/24/2016 2:26 PM [employer] Satisfactory postop appearance. Edited by Rajni Gomez on 09/24/2016 2:26 PM Narrative 09/24/2016 2:26 PM [employer] PELVIS AP VIEW HISTORY: Postop. An AP view of the lower pelvis and proximal femurs demonstrates a total hip prosthesis on the right in satisfactory position. Procedure Note Josse Woodard MD - 09/24/2016 PELVIS AP VIEW HISTORY: Postop. An AP view of the lower pelvis and proximal femurs demonstrates a total hip prosthesis on the right in satisfactory position. IMPRESSION Satisfactory postop appearance. Edited by Rajni Gomez on 09/24/2016 2:26 PM Bertram Smith MD DIAGNOSTIC IMAGING O RDERABLES * CULTURE MSSA/MRSA (09/20/2016 10:54 AM [employer]) Only the most recent of2 resultswithin the time period is included. Culture Negative for Staphylococcus aureus (MRSA/MSSA) CAREY 09/22/2016 10:02 AM [employer] [facility] MICRO[facility] Microbiology SPECIMEN FROM NASAL FOSSAE / Unknown Collection / Unknown 09/20/2016 10:54 AM [employer] 09/20/2016 10:55 AM [employer] Francisco Shankar MD LAB - MICROBIOLOGY ORDERABLES [facility] [address] [place] [address], [facility] [phone] * TYPE + SCREEN PANEL (09/13/2016 8:26 AM [employer]) ABO A 09/13/2016 9:39 AM [employer] [facility] Rh Type Positive 09/13/2016 9:39 AM [employer] [facility] Comment:History check perfor med. No retype required. Antibody Screen Negative 09/13/2016 9:39 AM [facility] Blood Bank BLOOD SPECIMEN / Unknown Venipuncture / Unknown 09/13/2016 8:26 AM [employer] 09/13/2016 8:47 AM [employer] Conrad Solorio MD LAB - BLOOD BANK O RDERABLES [facility] [address] [place] [address], [facility] * (ABNORMAL) CBC W AUTO DIFFERENTIAL (09/13/2016 8:26 AM [employer]) WBC 9.6 4.4 - 10.7 x10E9/L 09/13/2016 8:53 AM [facility] WBC Corrected x10E9/L 09/13/2016 8:53 AM [facility] RBC 4.44 3.80 - 5.40 x10E12/L 09/13/2016 8:53 AM [facility] Hemoglobin 14.0 12.0 - 17.6 gm/dL 09/13/2016 8:53 AM [facility] Hematocrit 40.6 35.2 - 51.7 % 09/13/2016 8:53 AM [facility] MCV 91.4 80.7 - 98.3 fl 09/13/2016 8:53 AM [facility] MCH 31.5 26.7 - 34.0 pg 09/13/2016 8:53 AM [facility] MCHC 34.5 30.8 - 35.9 gm/dL 09/13/2016 8:53 AM [facility] Platelet Count 273 153 - 416 x10E9/L 09/13/2016 8:53 AM [facility] RDW-CV 14.0 12.1 - 14.9 % 09/13/2016 8:53 AM [facility] MPV 9.5 9.4 - 12.9 fl 09/13/2016 8:53 AM [facility] Neutrophils % 71.7 44.0 - 73.0 % 09/13/2016 8:53 AM [facility] Lymphocytes % 15.6(L) 20.0 - 43.0 % 09/13/2016 8:53 AM [facility] Monocytes % 8.7 5.0 - 13.0 % 09/13/2016 8:53 AM [facility] Eosinophils % 3.1 0.0 - 6.0 % 09/13/2016 8:53 AM [facility] Basophils % 0.6 0.0 - 2.0 % 09/13/2016 8:53 AM [facility] Immature Granulocytes 0.3 0 - 1 % 09/13/2016 8:53 AM [facility] Neutrophil Absolute 6.87 2.01 - 7.14 x10E9/L 09/13/2016 8:53 AM [facility] Lymphocytes Absolute 1.50 1.07 - 3.94 x10E9/L 09/13/2016 8:53 AM [facility] Monocytes Absolute 0.83 0.26 - 1.07 x10E9/L 09/13/2016 8:53 AM [facility] Eosinophils Absolute 0.30 0 - 0.47 x10E9/L 09/13/2016 8:53 AM [facility] Basophils Absolute 0.06 0 - 0.08 x10E9/L 09/13/2016 8:53 AM [facility] Immature Granulocytes Absolute 0.03 0.00 - 0.06 x10E9/L 09/13/2016 8:53 AM [facility] nRBC Auto 0 /100 WBC 09/13/2016 8:53 AM [facility] Blood BLOOD SPECIMEN / Unknown 09/13/2016 8:26 AM [employer] 09/13/2016 8:47 AM [facility] Francisco Shankar MD LAB - HEMATOLOGY OR DERABLES [facility] [address] [place] [address] * (ABNORMAL) COMPREHENSIVE METABOLIC PANEL (09/13/2016 8:26 AM [facility]) [facility] Glucose 103 74 - 106 mg/dL 09/13/2016 9:07 AM [facility] Sodium 136 136 - 145 mmol/L 09/13/2016 9:07 AM [facility] Potassium 4.3 3.5 - 5.1 mmol/L 09/13/2016 9:07 AM [facility] Chloride 105 98 - 107 mmol/L 09/13/2016 9:07 AM [facility] CO2 26 22 - 31 mmol/L 09/13/2016 9:07 AM [facility] Calcium 8.6 8.5 - 10.1 mg/dL 09/13/2016 9:07 AM [facility] Anion Gap 5(L) 8 - 16 mmol/L 09/13/2016 9:07 AM [facility] BUN 24(H) 7 - 21 mg/dL 09/13/2016 9:07 AM [facility] Creatinine 1.30 0.50 - 1.30 mg/dL 09/13/2016 9:07 AM [facility] Alkaline Phosphatase 72 38 - 126 U/L 09/13/2016 9:07 AM [facility] ALT 22 13 - 61 U/L 09/13/2016 9:07 AM [facility] AST 16 5 - 40 U/L 09/13/2016 9:07 AM [facility] Protein Total 6.9 6.4 - 8.2 gm/dL 09/13/2016 9:07 AM [facility] Albumin 3.3(L) 3.4 - 5.0 gm/dL 09/13/2016 9:07 AM [facility] Bilirubin Total 0.7 0.2 - 1.0 mg/dL 09/13/2016 9:07 AM [facility] eGFR by MDRD 54 mL/min/1.7 3m2 09/13/2016 9:07 AM [facility] eGFR by MDRD >60 mL/min/1.7 3m2 09/13/2016 9:07 AM [facility] Blood BLOOD SPECIMEN / Unknown 09/13/2016 8:26 AM [employer] 09/13/2016 8:47 AM [employer] Francisco Shankar MD LAB - CHEMISTRY ORD ERABLES [facility] [address] [place] [address] * BLOOD TYPE VERIFICATION (09/13/2016 8:20 AM [facility]) ABO A 09/13/2016 9:39 AM [facility] Rh Type Positive 09/13/2016 9:39 AM [facility] Blood Bank BLOOD SPECIMEN / Unknown 09/13/2016 8:20 AM [employer] 09/13/2016 8:55 AM [employer] ARCH[employer] Francisco Shankar MD LAB - BLOOD BANK OR DERABLES [facility] [address] * C-REACTIVE PROTEIN (08/10/2016 10:54 AM [employer] ARCHITECT) C-Reactive Protein <0.5 <=0.5 mg/dL [facility] Blood specimen (specimen) BLOOD SPECIMEN / Unknown 08/10/2016 10:54 AM [employer] ARCHITECT 08/10/2016 11:28 AM [employer] ARCHITECT Francisco Shankar MD LAB - CHEMISTRY ORD ERABLES Performing Organization Address [facility] Co de Phone Number [address] [phone] * (ABNORMAL) ERYTHROCYTE SEDIMENTATION RATE (08/10/2016 10:54 AM [employer] ARCHITECT) Erythrocyte Sedimentation Rate Westergren 12(H) 0 - 10 MM/HR [facility] Blood specimen (specimen) BLOOD SPECIMEN / Unknown 08/10/2016 10:54 AM [employer] ARCHITECT 08/10/2016 11:28 AM [employer] ARCHITECT Francisco Shankar MD LAB - HEMATOLOGY OR DERABLES Performing Organization Address [facility] Co de Phone Number [address] [phone] * XR KNEE 4+ VW RIGHT (07/09/2015 9:01 AM [employer] ARCHITECT) Anatomical Region Laterality Modality Lower Extremity Radiographic Elena ging 07/09/2015 9:04 AM [employer] ARCH[employer]ECT Narrative 07/09/2015 9:49 AM [employer] ARCHITECT RIGHT KNEE, 4 VIEW HISTORY: Knee pain and swelling. There is postsurgical change in the medial femoral condyle and mild degenerative changes are present. Small intra-articular loose bodies can be present as seen on the AP radiograph adjacent to the lateral tibial eminence. No fracture, dislocation or joint effusion is seen. Edited by Vernell Tobin on 07/09/2015 9:37 AM Procedure Note Colin Ellington MD - 07/09/2015 RIGHT KNEE, 4 VIEW HISTORY: Knee pain and swelling. There is postsurgical change in the medial femoral condyle and mild degenerative changes are present. Small intra-articular loose bodies can be present as seen on the AP radiograph adjacent to the lateral tibial eminence. No fracture, dislocation or joint effusion is seen. Edited by Vernell Tobin on 07/09/2015 9:37 AM Francisco Shankar MD DIAGNOSTIC IMAGING ORDERABLES Care Teams Dance Historian Relationship Specialty Start Date End Date Landon Franklin MD PCP - General Internal Medicine 06/30/15
--- OUTSIDE RECORDS SUMMARY | 2024-10-05 08:43 | XMS_ITS ---
Author Organization [facility] Address [address] [place], [place] [id number] Care Team Providers Care Survey Crew Chief Name Role Phone Ok Franklin Unavailable Unavailable DENISE GUERRA Unavailable [phone] Allergies No Known Allergies REASON FOR VISIT Patient presents for at-risk foot care . The patient has painful toenails and calluses that are causing difficulty with ambulation and shoegear. The onset is gradual Encounters Encounter Location Date Provider Diagnosis [facility] [place] [address] [place], [place] [id number] 09/13/2024 DENISE GUERRA Tinea unguium B35.1 ; Pain in right foot M79.671 ; Pain in left foot M79.672 ; Atherosclerosis of [place] arteries of extremities with intermittent claudication, bilateral legs I70.213 and Acquired keratosis [keratoderma] palmaris et plantaris L85.1 Assessments Encounter Date Diagnosis (ICD Code) Assessment Notes Treatment Notes Treatment Clinical Notes Section Notes 09/13/2024 Tinea unguium (ICD-10 - B35.1) Nails 1-5 Bilateral were debrided extensively with nail nippers and emery board, reducing length and girth to pink healthy tissue with any subungual debris and necrotic tissue removed 09/13/2024 Pain in right foot (ICD-10 - M79.671) 09/13/2024 Pain in left foot (ICD-10 - M79.672) 09/13/2024 Atherosclerosis of [place] arteries of extremities with intermittent claudication, bilateral legs (ICD-10 - I70.213) 09/13/2024 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.1) A total of 1 corns or calluses, as described in the note above, were cut and pared utilizing a #15 blade Plan Of Treatment Treatment Notes Assessment Notes Tinea unguium Nails 1-5 Bilateral were debrided extensively with nail nippers and emery board, reducing length and girth to pink healthy tissue with any subungual debris and necrotic tissue removed Acquired keratosis [keratode rma] palmaris et plantaris A total of 1 corns or calluses, as described in the note above, were cut and pared utilizing a #15 blade Next Appt Details Follow Up: 10 - 12 weeks, Re ason: At-Risk Foot care, sooner if problems develop. Provider Name:DENISE GUERRA, 08:10:00 AM, [address] [place] [address], [phone], Progress Notes * Izaiah HAYESDOB:1945 ( 79 yo M)Acc No.[id number]:09/13/2024 Patient: Izaiah ALBRIGHT Provider: Mavis Guerra DPM :1945 A ge:79 Y S ex:Male Date:09/13/2024 Address:[address] [place], [place] [id number] Subjective: * Chief Complaints: * Helder gracia presents for at-risk foot care . The patient has painful toenails and calluses that are causing difficulty with ambulation and shoegear. The onset is gradual * HPI: H PI: General care Helder gracia presents to the office for at risk foot care. Patient states that their nails are thickened, elongated and painful. Patient states that it is aggravated by shoe gear. Onset is gradual. Patient denies being diabetic., Patient denies taking prescription blood thinners but does take a daily aspirin., Date last seen by Dr. Franklin was April 2024., Initials [facility]. * Medical History: * Surgical History: * Hospitalization/Major Diagno stic Procedure: * Medications: * Allergies: N .K.D.A.no[Allergies Verified] Objective: * Vitals: * Examination: P hysical Examination: General appearance: A lert, pleasant, well-nourished and in no acute distress. D ermatologic: Skin findings: S kin is thin, atrophic and lacking pedal hair. Hypertrophic / hyperkeratotic lesion: p lantar aspect of the left 5th metatarsal head. Nail pathology: N ails 1, 2, 3, 4, and 5 bilateral are elongated, thick, discolored, and dystrophic with subungual debris. They are painful to palpation. ? V ascular: Dorsalis pedis pulse: 1 /4 b ilateral. Posterior tibial pulse: 0 /4 bilateral. Capillary refill: g reater than 3 seconds. Edema: N o edema bilateral. N eurologic: Gross sensation G rossly intact to light touch. There is negative Tinel's sign. M usculoskeletal: Muscle Strength M uscle strength is 5/5 in regards to dorsiflexion, plantarflexion, inversion, and eversion in bilateral lower extremities. ? Assessment: * Assessment: 1. T inea unguium - B35.1 (Primary) 2 . P ain in right foot - M79.671 ? 3 . P ain in left foot - M79.672 4 . A therosclerosis of [place] arteries of extremities with intermittent claudication, bilateral legs - I70.213 5 . Acquired keratosis [keratoderma] palmaris et plantaris - L85.1 Plan: * Treatment: 2. A cquired keratosis [keratoderma] palmaris et plantaris Notes: A total of 1 corns or calluses, as described in the note above, were cut and pared utilizing a #15 blade * Procedure Codes: 1 1055 TRIM SKIN LESION, Modifiers: Q8 14406 DEBRIDE NAIL, 6 OR MORE, Modifiers: 59 , Q8 * Follow Up: 1 0 - 12 weeks (Reason: At-Risk Foot care, sooner if problems develop.) * Billing Information: * Visit Code: * Procedure Codes: 72377 TRIM SKIN LESION. Modifiers: Q8 73016 DEBRIDE NAIL, 6 OR MORE. Modifiers: 59, Q8 * NE ANIMAL TRAINER Sign off status: Completed true * Provider: Mavis Guerra DPM Date: 0 09/13/2024 Generated for Kaylee steinberg/Tristen/eTransmitting on: 0 10/05/2024 08:42 AM MARINE ANIMAL TRAINER History and Physical Notes * HPI (History of Present Illness) Category Sub-Category Detail Notes Category Not es HPI General care Patient presents to the office for at risk foot care. Patient states that their nails are thickened, elongated and painful. Patient states that it is aggravated by shoe gear. Onset is gradual. Patient denies being diabetic., Patient denies taking prescription blood thinners but does take a daily aspirin., Date last seen by Dr. Franklin was April 2024., Initials [facility] Examination Category Sub-Category Detail Notes Category Not es Dermatologic Skin findings: Skin is thin, at rophic and lacking pedal hair Nail pathology: Nails 1, 2, 3, 4, an d 5 bilateral are elongated, thick, discolored, and dystrophic with subungual debris. They are painful to palpation Hypertrophic / hyperkeratotic lesion: pl isabel aspect of the left 5th metatarsal head Neurologic Gross sensation Grossly intact t o light touch. There is negative Tinel's sign Vascular Dorsalis pedis pulse: 1/4 bilateral Edema: No edema bilateral Capillary refill: greater than 3 secon ds Posterior tibial pulse: 0/4 bilateral Physical Examination General appearance: Alert, pleasant, well-nourished and in no acute distress Musculoskeletal Muscle Strength Muscle strength is 5/5 in regards to dorsiflexion, plantarflexion, inversion, and eversion in bilateral lower extremities
--- OUTSIDE RECORDS SUMMARY | 2024-10-05 08:43 | XMS_ITS ---
Author Organization [facility] Address [address] [place], [place] [id number] Care Team Providers Care Softball Winder Name Role Phone Ok Franklin Unavailable Unavailable KATHE DOYLE Unavailable [phone] REASON FOR VISIT *General care Encounters Encounter Location Date Provider Diagnosis [address] [id number] 06/28/2024 KATHE DOYLE Other hammer toe(s) (acquired), right foot M20.41 ; Tinea unguium B35.1 ; Other hammer toe(s) (acquired), left foot M20.42 ; Pain in right toe(s) M79.674 ; Pain in left toe(s) M79.675 ; Unspecified atherosclerosis of [place] arteries of extremities, bilateral legs I70.203 and Acquired keratosis [keratoderma] palmaris et plantaris L85.1 Assessments Encounter Date Diagnosis (ICD Code) Assessment Notes Treatment Notes Treatment Clinical Notes Section Notes 06/28/2024 Other hammer toe(s) (acquired), right foot [...] educated regarding both OTC and prescription treatments. 06/28/2024 Other hammer toe(s) (acquired), left foot (ICD-10 - M20.42) 06/28/2024 Pain in right toe(s) (ICD-10 - M79.674) 06/28/2024 Pain in left toe(s) (ICD-10 - M79.675) 06/28/2024 Unspecified atherosclerosis of [place] arteries of extremities, bilateral legs (ICD-10 - [...] and no infection or drainage was noted. Plan Of Treatment Treatment Notes Assessment Notes Other hammer toe(s) (acquired), right fo ot The patient was educated regarding how to [...] were discussed, but conservative options were emphasized. Tinea unguium Aseptic debridement of elongated thickened nails x [...] educated regarding both OTC and prescription treatments. Unspecified atherosclerosis of [place] arteries of extremities, bilateral legs Patient educated on risks and aggravating factors of PVD, including conservative treatment options such as a diet and exercise regimen to aid in slowing progression of vascular disease Acquired keratosis [keratode rma] palmaris et plantaris Pre-ulcerative keratoderma debrided sharply down to the level of healthy tissue using a 15 blade. After removal of overlying extensive hyperkeratosis, healthy tissue was noted and care was taken to assure that no undermining or probing was present. It should be noted that no probing was noted and no infection or drainage was noted. Next Appt Details Follow Up: 3 Months, Reason: Provider Name:DENISE GUERRA, 08:10:00 AM, [address] [place] [address], [id number], Progress Notes * Izaiah HAEYSDOB:1945 ( 79 yo M)Acc No.[id number]:06/28/2024 Patient: Helder ENGLANDIzaiah Provider: Elias DOYLE :1945 A ge:79 Y S ex:Male Date:06/28/2024 Address:[address] [place], [place] [id number] Subjective: * Chief Complaints: * 1 . *General care. * HPI: H PI: General care Helder gracia presents to the office for at risk foot care. Patient states that their nails are thickened, elongated and painful. Patient states that it is aggravated by shoe gear. Onset is gradual. Patient denies being diabetic., Patient denies taking prescription blood thinners but does take a daily aspirin., Date last seen by Dr. Franklin was 01/2024., [facility] * ROS: G eneral / Constitutional: Patient denies w eakness. R espiratory: Patient denies c hronic cough, shortness of breath, sputum production. C ardiovascular: Patient denies c hest pain, history of MA, irregular heartbeat. M usculoskeletal: Patient complains of f lat feet/ planus, arch pain. ? P eripheral Vascular: Patient denies b lanching of skin, cold extremities, decreased sensation in extremities. S kin: Patient complains of f ungal nails, nail changes, calluses and corns. N eurologic: Patient denies d izziness, gait abnormality, headache. * Medical History: Objective: * Vitals: * Examination: P hysical Examination: V ascular: Dorsalis Pedis pulse noted at 1/4 right foot and 1/4 left foot and Posterior Tibial pulse noted at 1/4 right foot and 1/4 left foot, Capillary refill times noted to be less than three seconds x ten, Temperature gradient noted to be warm to cool to bilateral foot, pedal hair present to bilateral foot and no varicosities are noted Dermatologic: there are no open lesions, no signs of active clinical infection, no erythema noted, no ecchymoses, nails are elongated thickened and dystrophic with subungual debris x ten, hyperkeratotic tissue plantar fifth metatarsal head bilateral foot Musculoskeletal: there is pain to palpation onto nail plate x ten, no calf pain noted bilaterally, arch height noted at 2/5 non-weight bearing bilaterally, first metatarsophalangeal joint range of motion 30 deg non-weight bearing bilaterally, flexible fifth digit hammer toe deformity noted to bilateral foot reducible with kelikian push up test, pain to palpation sub fifth metatarsal head hyperkeratotic tissue bilateral foot Neurology: protective sensation intact to light touch bilateral digits one through five, vibratory sensation intact to first metatarsophalangeal joint bilaterally. Assessment: * Assessment: 1. T inea unguium - B35.1 (Primary) 2 . O ther hammer toe(s) (acquired), right foot - M20.41 3 . O ther hammer toe(s) (acquired), left foot - M20.42 ? 4 . P ain in right toe(s) - M79.674 5 . P ain in left toe(s) - M79.675 6 . U nspecified atherosclerosis of [place] arteries of extremities, bilateral legs - I70.203 7 . A cquired keratosis [keratoderma] palmaris et plantaris - L85.1 Plan: * Treatment: 2. O ther hammer toe(s) (acquired), right foot Notes: The patient was educated regarding how to [...] were discussed, but conservative options were emphasized. 3. U nspecified atherosclerosis of [place] arteries of extremities, bilateral legs Notes: Patient educated on risks and aggravating factors of PVD, including conservative treatment options such as a diet and exercise regimen to aid in slowing progression of vascular disease ? 4. A cquired keratosis [keratoderma] palmaris et plantaris Notes: Pre-ulcerative keratoderma debrided sharply down to the level of healthy tissue using a 15 blade. After removal of overlying extensive hyperkeratosis, healthy tissue was noted and care was taken to assure that no undermining or probing was present. It should be noted that no probing was noted and no infection or drainage was noted. * Procedure Codes: 1 1056 TRIM SKIN LESIONS, 2 TO 4, Modifiers: Q8 , 90336 DEBRIDE NAIL, 6 OR MORE, Modifiers: 59 , Q8 * Follow Up: 3 Months * Billing Information: * Visit Code: * Procedure Codes: 63557 TRIM SKIN LESIONS, 2 TO 4. Modifiers: Q8 14328 DEBRIDE NAIL, 6 OR MORE. Modifiers: 59, Q8 * CORPORATE DEVELOPMENT Sign off status: Completed true * Provider: Elias DOYLE Date: Generated for Kaylee steinberg/Tristen/Andersonitting on: 0 10/05/2024 08:42 AM VP CORPORATE DEVELOPMENT History and Physical Notes * HPI (History [...] Date last seen by Dr. Franklin was 01/2024., Initials [facility] Examination Category Sub-Category Detail Notes Category Not es Physical Examination Vascular: Dorsalis Pedis pulse noted at 1/4 right foot and 1/4 left foot and Posterior Tibial pulse noted at 1/4 right foot and 1/4 left foot, Capillary refill times noted to be less than three seconds x ten, Temperature gradient noted to be warm to cool to bilateral foot, pedal hair present to bilateral foot and no varicosities are noted Dermatologic: there are no open lesions, no signs of active clinical infection, no erythema noted, no ecchymoses, nails are elongated thickened and dystrophic with subungual debris x ten, hyperkeratotic tissue plantar fifth metatarsal head bilateral foot Musculoskeletal: there is pain to palpation onto nail plate x ten, no calf pain noted bilaterally, arch height noted at 2/5 non-weight bearing bilaterally, first metatarsophalangeal joint range of motion 30 deg non-weight bearing bilaterally, flexible fifth digit hammer toe deformity noted to bilateral foot reducible with kelikian push up test, pain to palpation sub fifth metatarsal head hyperkeratotic tissue bilateral foot Neurology: protective sensation intact to light touch bilateral digits one through five, vibratory sensation intact to first metatarsophalangeal joint bilaterally
--- OUTSIDE RECORDS SUMMARY | 2024-10-05 08:43 | XMS_ITS | Clinical Summary ---
Author Organization [facility] Address [address] [place] [address] Care Team Providers Care Buckle Strap Drum Operator Name Role Phone Landon Franklin MD Primary Care Provider [phone] Nader Burns MD Unavailable Unavailabl e Rubens Olmos APRN, RIVET THROWER-C Unavailable [phone] Aleksandr Jeffery MD Unavailable [phone] Remberto Alexis MD Unavailable [phone] Allergies No known active allergies Medications aspirin 81 MG chewable tablet Chew 1 tablet (81 mg total) by mouth daily. 30 tablet 11 0 Active Blood Pressure KitIndications:Ess ential hypertension 1 Units by Does not apply route daily. 1 kit 0 Active travoprost, TRAVATAN Z, 0.004 % opthalamic solution INSTILL 1 DROP INTO IN BOTH EYES AT BEDTIME 1 Active atorvastatin (LIPITOR) 80 MG tabletIndications: Mixed hyperlipidemia TAKE 1 TABLET(80 MG) BY MOUTH EVERY NIGHT AT BEDTIME 90 tablet 2 4 Active losartan-hydroCHLO ROthiazide (HYZAAR) 50-12.5 MG tablet Take 1 tablet by mouth daily. 4 Active dorzolamide-timolo l (COSOPT) 2-0.5 % Solution Place 1 drop into both eyes 2 (two) times daily. 4 Active amoxicillin (AMOXIL) 500 MG capsule TAKE 4 CAPSULES BY MOUTH ONE HOUR PRIOR TO PROCEDURE 4 Active Coenzyme Q10 (CO Q 10 OR) Take by mouth daily. Active Active Problems Problem Noted Date Diagnosed Date Mixed hyperlipidemia Essential hypertension Bilateral carotid artery stenosis Chronic kidney disease Resolved Problems Problem Noted Date Diagnosed Date Resolved Date Pure hypercholesterolemia Encounters Date Type Department Care Team Description 09/20/2024 Abstract [facility] [address] [place] [address] Abstract, Doc Pccl 08/31/2024 2:00 PM SPEECH/LANGUAGE THERAPIST Office Visit [facility] [address] [place] [address] Rubens Olmos, BETTY, RIVET THROWER-C Follow Up (Carotid stenosis) 08/31/2024 1:00 PM SPEECH/LANGUAGE THERAPIST - 08/31/2024 11:59 PM SPEECH/LANGUAGE THERAPIST Hospital Encounter [facility] Vascular Ultrasound - [facility] [address] [place] [address] Rubens Olmos, BETTY, RIVET THROWER-C Discharge Disposition: Home or Self Care (Routine Discharge) 08/31/2024 Travel 08/31/2024 Orders Only [facility] [address] [place] [address] Remberto Alexis MD 08/30/2024 Telephone [facility] [address] [place] [address] Rubens Olmos, BETTY, RIVET THROWER-C Appointment Reminder from Last 3 Months Family History Medical History Relation Comments Heart Attack Father CHF Mother Heart Disease Sister 1 Valve Disease Sister 2 Relation Status Comments Father (Age 74) Mother Sister 1 Sister 2 Social History Tobacco Use Types Packs/Day Years Used Date Smoking Tobacco: Never Smokeless Tobacco: Never Sex and Gender Information Value Date Recorded Sex Assigned at Not on file Legal Sex Male 9:12 AM SPEECH/LANGUAGE THERAPIST Gender Identity Not on file Sexual Orientation Not on file Last Filed Vital Signs Vital Sign Reading Time Taken Comments Blood Pressure 134/78 08/31/2024 2:30 PM SPEECH/LANGUAGE THERAPIST Pulse 64 08/31/2024 1:36 PM SPEECH/LANGUAGE THERAPIST EKG Temperature - - Respiratory Rate 18 08/31/2024 1:36 PM SPEECH/LANGUAGE THERAPIST Oxygen Saturation 95% 08/31/2024 1:36 PM SPEECH/LANGUAGE THERAPIST Inhaled Oxygen Concentration - - Weight 88.4 kg (194 lb 12.8 oz) 08/31/2024 1:36 PM SPEECH/LANGUAGE THERAPIST Height 185.4 cm (6' 1 ) 08/31/2024 1:36 PM SPEECH/LANGUAGE THERAPIST Body Mass Index 25.7 08/31/2024 1:36 PM SPEECH/LANGUAGE THERAPIST Plan of Treatment Upcoming Encounters Date Type Department Care Team (Late st Contact Info) Description 08/20/2025 1:00 PM SPEECH/LANGUAGE THERAPIST Appointment [facility] Vascular Ultrasound - [facility] [address] [place] [address] Rubens Olmos APRN, RIVET THROWER-C [address] [address] 08/20/2025 2:00 PM SPEECH/LANGUAGE THERAPIST [facility] [address] [place] [address] Rubens Olmos APRN, RIVET THROWER-C [address] [address] Health Maintenance Due Date Last Done Comments DTaP, Tdap and Td Vaccines ( 1 - Tdap) 1962 Zoster Vaccines (1 of 2) 1993 Annual Medicare Wellness Visit 2008 RSV Immunization or 60+ Years (1 - 1-dose 75+ series) 2018 Pneumococcal Vaccine: 65+ Ye ars (2 of 2 - PPSV23 or PCV20) 09/22/2020 07/28/2020 COVID-19 Vaccine ( - 2023-2 5 season) 2024 Influenza Adult (#1) 2024 Meningococcal B Vaccine Aged Out No l onger eligible based on patient's age to complete this topic Meningococcal Vaccine Aged Out No foster julee eligible based on patient's age to complete this topic RSV Immunizations Under 20 Months Aged Out No longer eligible based on patient's age to complete this topic Procedures Procedure Name Priority Date/Time Associated Diagnosis Comments ELECTROCARDIOGRAM (NON MIDMARK ACQUIRED) Routine 08/31/2024 1:44 PM SPEECH/LANGUAGE THERAPIST Mixed hyperlipidemia Bilateral carotid artery stenosis Essential hypertension USV CAROTID DUPLEX NIDIA Routine 1:35 PM SPEECH/LANGUAGE THERAPIST Bilateral carotid artery stenosis COMPREHENSIVE METABOLIC PANEL Routine 08/17/2024 LIPID PANEL Routine 08/17/2024 CBC, MANUAL DIFF Routine 08/17/2024 from Last 3 Months Results * ELECTROCARDIOGRAM (08/31/2024 1:44 PM SPEECH/LANGUAGE THERAPIST) 08/31/2024 1:44 PM SPEECH/LANGUAGE THERAPIST Narrative [facility] - 09/03/2024 4:17 PM SPEECH/LANGUAGE THERAPIST [facility] [address] [place] [address] Test Date: 2024-08-31 Pat Name: IZAIAH HAYES Department: 105 Room: Gender: Male Air Pollution Compliance Inspector: FLOR : 1945 Requested By: REMBERTO ALEXIS Order Number: [id number] Reading MD: Remberto Alexis Measurements Intervals [place] Rate: 64 P: 55 WA: 182 QRS: 13 QRSD: 103 T: 57 QT: 398 QTc: 411 Interpretive Statements SINUS RHYTHM CH/LANGUAGE THERAPIST Procedure Note Remberto Alexis MD - 09/03/2024 [facility] [address] [place] [address] Test Date: 2024-08-31 Pat Name: IZAIAH HAYES Department: 105 Room: Gender: Male Air Pollution Compliance Inspector: FLOR : 1945 Requested By: REMBERTO ALEXIS Order Number: [id number] Reading ALICJA Alexis Measurements Intervals [place] Rate: 64 P: 55 WA: 182 QRS: 13 QRSD: 103 T: 57 QT: 398 QTc: 411 Interpretive Statements SINUS RHYTHM CH/LANGUAGE THERAPIST us Remberto Alexis MD PROCEDURES-ORDERABLE NO CHARG E Final Result [facility] * USV CAROTID DUPLEX NIDIA (08/31/2024 1:35 PM SPEECH/LANGUAGE THERAPIST) Anatomical Region Laterality Modality Neck Ultrasound 08/31/2024 1:03 PM SPEECH/LANGUAGE THERAPIST Narrative 08/31/2024 4:54 PM SPEECH/LANGUAGE THERAPIST [facility] Vascular Report Pat.Name: IZAIAH HAYES Pat.ID: [id number] St.Date: 08/31/2024 Refer.MD: RUBENS OLMOS Exam Time: 1:03:00 PM Study Type:PVI CAROTID SCAN - BILATERAL Height: 73 in Age: 8 1945,79Y Sex: M Sonogrphr: Fred Petersen RVT Pat. Stat.:Outpatient ICD - 9: I65.23 Carotid occlusion/Stenosis bilateral CPT - 4: 36048 Carotid Duplex Race: W ++++++++++++++++++++++++++++++++++++ SUMMARY: ++++++++++++++++++++++++++++++++++++ Rt ICA: 40-59% stenosis noted in the internal carotid artery. Lt ICA: 60-79% stenosis noted in the internal carotid artery. ++++++++++++++++++++++++++++++++++++ FINDINGS: ++++++++++++++++++++++++++++++++++++ Rt Innom: The innominate artery is patent. Rt Subcl: The proximal subclavian artery is patent. Rt ICA: 40-59% stenosis noted in the internal carotid artery. Mild/moderate heterogeneous plaque noted. Rt ECA: Patent with antegrade flow noted in the external carotid artery. Rt Vert: Normal antegrade vertebral flow. Lt Subcl: The proximal subclavian artery is patent. Lt ICA: 60-79% stenosis noted in the internal carotid artery. Moderate heterogeneous plaque noted. Lt ECA: Patent with antegrade flow noted in the external carotid artery. Lt Vert: Normal antegrade vertebral flow. Carotid Findings: Right Left Verteb.Flw Antegrade Antegrade ++++++++++++++++++++++++++++++++++++ MEASUREMENTS: ++++++++++++++++++++++++++++++++++++ DOPPLER Right CCA Prox Prox CCA PSV 110 cm/s Prox CCA EDV 29.5 cm/s Right Innominate Innominate PSV 150 cm/s Right CCA Dist Dist CCA PSV 94.6 cm/s Dist CCA EDV 19.6 cm/s Right ICA Prox Prox ICA PSV 116 cm/s Prox ICA EDV 25.9 cm/s Right ICA Mid Mid ICA PSV 140 cm/s Mid ICA EDV 44.2 cm/s Right ICA Dist Dist ICA PSV 117 cm/s Dist ICA EDV 27.3 cm/s Right ECA Prox Prox ECA PSV 122 cm/s Right Vertebral Vertebral PSV 64.7 cm/s Vertebral EDV 15.3 cm/s Right Prox SCA Prox SCA PSV 183 cm/s Right ICA/CCA RATIO ICA/CCA RATIO P 1.48 Left CCA Prox Prox CCA PSV 134 cm/s Prox CCA EDV 29.3 cm/s Left CCA Dist Dist CCA PSV 99.6 cm/s Dist CCA EDV 23.5 cm/s Left ICA Prox Prox ICA PSV 323 cm/s Prox ICA EDV 58.1 cm/s Left ICA Mid Mid ICA PSV 141 cm/s Mid ICA EDV 34.7 cm/s Left ICA Dist Dist ICA PSV 117 cm/s Dist ICA EDV 31.2 cm/s Left ECA Prox Prox ECA PSV 235 cm/s Left Vertebral Vertebral PSV 62.4 cm/s Vertebral EDV 10.3 cm/s Left Prox SCA Prox SCA PSV 194 cm/s Prox SCA PSV 194 cm/s Left ICA/CCA RATIO ICA/CCA RATIO P 3.24 <Electronic Signature> 08/31/2024 04:54 PM Timoteo Harris M.D. Procedure Note Timoteo Harris MD - 08/31/2024 S Vascular Report Pat.Name: IZAIAH HAYES Pat.ID: [id number] St.Date: 08/31/2024 Refer.MD: RUBENS OLMOS Exam Time: 1:03:00 PM Study Type:PVI CAROTID SCAN - BILATERAL Height: 73 in Age: 8 1945,79Y Sex: M Sonogrphr: Fred Petersen RVT Pat. Stat.:Outpatient ICD - 9: I65.23 Carotid occlusion/Stenosis bilateral CPT - 4: 69628 Carotid Duplex Race: W ++++++++++++++++++++++++++++++++++++ SUMMARY: ++++++++++++++++++++++++++++++++++++ Rt ICA: 40-59% stenosis noted in the internal carotid artery. Lt ICA: 60-79% stenosis noted in the internal carotid artery. ++++++++++++++++++++++++++++++++++++ FINDINGS: ++++++++++++++++++++++++++++++++++++ Rt Innom: The innominate artery is patent. Rt Subcl: The proximal subclavian artery is patent. Rt ICA: 40-59% stenosis noted in the internal carotid artery. Mild/moderate heterogeneous plaque noted. Rt ECA: Patent with antegrade flow noted in the external carotid artery. Rt Vert: Normal antegrade vertebral flow. Lt Subcl: The proximal subclavian artery is patent. Lt ICA: 60-79% stenosis noted in the internal carotid artery. Moderate heterogeneous plaque noted. Lt ECA: Patent with antegrade flow noted in the external carotid artery. Lt Vert: Normal antegrade vertebral flow. Carotid Findings: Right Left Verteb.Flw Antegrade Antegrade ++++++++++++++++++++++++++++++++++++ MEASUREMENTS: ++++++++++++++++++++++++++++++++++++ DOPPLER Right CCA Prox Prox CCA PSV 110 cm/s Prox CCA EDV 29.5 cm/s Right Innominate Innominate PSV 150 cm/s Right CCA Dist Dist CCA PSV 94.6 cm/s Dist CCA EDV 19.6 cm/s Right ICA Prox Prox ICA PSV 116 cm/s Prox ICA EDV 25.9 cm/s Right ICA Mid Mid ICA PSV 140 cm/s Mid ICA EDV 44.2 cm/s Right ICA Dist Dist ICA PSV 117 cm/s Dist ICA EDV 27.3 cm/s Right ECA Prox Prox ECA PSV 122 cm/s Right Vertebral Vertebral PSV 64.7 cm/s Vertebral EDV 15.3 cm/s Right Prox SCA Prox SCA PSV 183 cm/s Right ICA/CCA RATIO ICA/CCA RATIO P 1.48 Left CCA Prox Prox CCA PSV 134 cm/s Prox CCA EDV 29.3 cm/s Left CCA Dist Dist CCA PSV 99.6 cm/s Dist CCA EDV 23.5 cm/s Left ICA Prox Prox ICA PSV 323 cm/s Prox ICA EDV 58.1 cm/s Left ICA Mid Mid ICA PSV 141 cm/s Mid ICA EDV 34.7 cm/s Left ICA Dist Dist ICA PSV 117 cm/s Dist ICA EDV 31.2 cm/s Left ECA Prox Prox ECA PSV 235 cm/s Left Vertebral Vertebral PSV 62.4 cm/s Vertebral EDV 10.3 cm/s Left Prox SCA Prox SCA PSV 194 cm/s Prox SCA PSV 194 cm/s Left ICA/CCA RATIO ICA/CCA RATIO P 3.24 <Electronic Signature> 08/31/2024 04:54 PM Timoteo Harris M.D. us Rubens B Mic TIMBER ROBBER, RIVET THROWER-C US VASC Final Result * COMPREHENSIVE METABOLIC PANEL (08/17/2024) SODIUM S/P/B 139 GLUCOSE 86 mg/dL AST 20 BUN 32 CREATININE S/P/B 1.15 0.7 - 1.3 CALCIUM S/P/B 9.0 POTASSIUM S/P/B 4.1 CHLORIDE S/P/B 103 ALT 27 GFR ESTIMATE >60 Narrative Resulting Agency Comment [facility] Landon Franklin MD LABORATORY Final Result * LIPID PANEL (08/17/2024) CHOLESTEROL 236 TRIGLYCERIDES 61 HDL 72 LDL (CALCULATED) 152 Narrative Resulting Agency Comment [facility] Landon Franklin MD LABORATORY Final Result * CBC, MANUAL DIFF (08/17/2024) [facility] WBC 6.2 HGB 13.5 HCT 38.5 PLT 233 Narrative Resulting Agency Comment [facility] Landon Franklin MD LABORATORY Final Result from Last 3 Months Insurance MEDICARE [facility] Care Teams Buckle Strap Drum Operator Relationship Specialty Start Date End Date Landon Franklin MD [address] [place] [address] PCP - General INTERNAL MEDICINE 08/07/20 Nader Burns MD [address] [place] [address] [employer] CARDIOVASCULAR DISEASE 08/07/20 Rubens Olmos, TIMBER ROBBER, RIVET THROWER-C [address] [facility] [address] [place] [address] NURSE PRACTITIONER 10/10/23 Aleksandr Jeffery MD [address] [place], [place] [address] Surgeon COLON/RECTAL SURGERY 10/10/23 Remberto Alexis MD [address] [facility] [address] [place] [address] Consulting Physician INTERVENTIONAL CARDIOLOGY 09/03/24
--- OUTSIDE RECORDS SUMMARY | 2024-10-05 08:43 | XMS_ITS | Clinical Summary ---
Author Organization [facility] Address [address] [place] [address] Care Team Providers Care De Icer Element Winder Name Role Phone Landon Franklin MD Primary Care Provider [phone] Source Comments [facility],non-owned Affiliates and Associated Physician Practices is amultiple site organization consisting of ambulatory clinics and hospital sitesin [place], [place], [place] and [place]. This disclosure is being madepursuant to the Care Everywhere program and may not contain all information available regarding this patient. Last updated 18.[facility] Allergies No known active allergies Medications * Be aware that medications may not be up to date on this document. Alwaysverify current medications with the patient. Medication Sig Dispensed Refills Start Date End Date Status vitamin D3-cholecalciferol (CHOLECACIFEROL) 1000 UNITS tablet Take 2,500 Units by mouth once daily Active oxyCODONE-acetamin ophen (PERCOCET) 5-325 MG tabletIndications: H/O total hip arthroplasty, right Take 1 Tab by mouth every 4 hours as needed for Pain 20 Tab 09/26/2016 Active aspirin (ASPIRIN) 325 MG tabletIndications: H/O total hip arthroplasty, right Take 1 Tab by mouth 2 times daily after meals 30 Tab 09/26/2016 Active nystatin (MYCOSTATIN) 546861 UNIT/GM powder Apply to affected area 3 times daily 1 Bottle 09/26/2016 Active polyethylene glycol 3350 (MIRALAX) packet Take 17 g by mouth once daily as needed for Constipation 14 Packet 09/26/2016 Active senna-docusate (SENOKOT-S) 8.6-50 MG tablet Take 2 Tabs by mouth once daily 30 Tab 09/26/2016 Active tamsulosin (FLOMAX) 0.4 MG capsule Take 1 Cap by mouth at bedtime Take 30 minutes after a meal at the same time each day. 30 Cap 09/26/2016 Active Benzocaine-Menthol (THROAT LOZENGE) Take 1 Lozenge by mouth as needed for Sore Throat 15 Lozenge 09/26/2016 Active Active Problems Problem Noted Date Diagnosed [...] Comments Blood Pressure 118/75 09/26/2016 12:33 PM MERCHANDISING PROFESSOR Pulse 83 09/26/2016 12:33 PM MERCHANDISING PROFESSOR Temperature 36.6 C (97.9 F) 09/26/2016 12:33 PM MERCHANDISING PROFESSOR Respiratory Rate 18 09/26/2016 12:33 PM MERCHANDISING PROFESSOR Oxygen Saturation 99% 09/26/2016 12:33 PM MERCHANDISING PROFESSOR Inhaled Oxygen Concentration - - Weight 81.2 kg (179 lb) 10/26/2016 10:26 AM MERCHANDISING PROFESSOR Height 185.4 cm (6' 1 ) 10/26/2016 10:26 AM MERCHANDISING PROFESSOR Body Mass Index 23.62 10/26/2016 10:26 AM MERCHANDISING PROFESSOR Plan of Treatment Health Maintenance Due Date Last Done Comments MEDICARE AWV 12 MONTHS 1945 DTAP/TDAP/TD VACCINES (1 - Tdap) 1962 PNEUMOCOCCAL VACCINE 50+ (1 of 1 - PCV) 1993 ZOSTER VACCINE (1 of 2) 1993 Respiratory Syncytial Virus (RSV) Vaccine Pt: or over 60 yrs (1 - 1-dose 75+ series) 2018 COVID-19 VACCINE ( - 2023-2 5 season) 2024 INFLUENZA VACCINE (#1) 2024 DEPRESSION SCREENING 08/29/2024 HEPATITIS B VACCINE Aged Out No longe r eligible based on patient's age to complete this topic HIB VACCINE Aged Out No longer eligi ble based on patient's age to complete this topic HPV VACCINE Aged Out No longer eligi ble based on patient's age to complete this topic MENINGOCOCCAL (Group B) VACCINE Aged Out No longer eligible based on patient's age to complete this topic MENINGOCOCCAL VACCINE Aged Out No foster julee eligible based on patient's age to complete this topic Medical Devices Implanted Type Area Process Machine Operator Device Identifier Shelf Expiration Date Model / Serial / Lot Shell Actb 58mm 3 Hl Poly R3 Std Implanted:Qty: 1 on 09/24/2016 by Francisco Shankar MD at [facility] Right: Hip [employer] 06/23/2026 [id number] / / [id number] Acetabular Liner Uhmwpe Implanted:Qty: 1 on 09/24/2016 by Francisco Shankar MD at [facility] Right: Hip [employer] 07/29/2024 [id number] / / [id number] Screw 6.5mm 40mm Sphr Hip Actb Reflc Implanted:Qty: 1 on 09/24/2016 by Francisco Shankar MD at [facility] Right: Hip [employer] 06/06/2025 [id number] / / [id number] Stem Standard With Ti/Eason Implanted:Qty: 1 on 09/24/2016 by Francisco Shankar MD at [facility] Right: Hip [employer] 06/08/2023 [id number] / / [id number] Ceramic Modular Femoral Head Implanted:Qty: 1 on 09/24/2016 by Francisco Shankar MD at [facility] Right: Hip [employer] 07/13/2026 [id number] / / [id number] Cal Uncem Hip All Inclusive Implanted:Qty: 1 on 09/24/2016 by Francisco Shankar MD at [facility] BILL ONLY [employer] HIP ALL INCLUSIVE SNORTH / / Advance Directives * Full Code (Latest Code Status on File) Date Activated Date Inactivated Comments 09/24/2016 4:27 PM 09/26/2016 3:16 PM * Full Code Date Activated Date Inactivated Comments 09/24/2016 2:17 PM 09/24/2016 4:27 PM Care Teams De Icer Element Winder Relationship Specialty Start Date End Date Landon Franklin MD PCP - General Internal Medicine 06/30/15
--- OUTSIDE RECORDS SUMMARY | 2024-10-05 08:43 | XMS_ITS | Referral Summary ---
Author Organization [facility] Address [address] [place] [address] Care Team Providers Care Applied Technologist Name Role Phone Landon Franklin MD Primary Care Provider [phone] Source Comments [facility],non-owned Affiliates and Associated Physician Practices is amultiple site organization consisting of ambulatory clinics and hospital sitesin [place], [place], [place] and [place]. This disclosure is being madepursuant to the Care Everywhere program and may not contain all information available regarding this patient. Last updated 18.[facility] Allergies No known active allergies Medications * [...] meals 30 Tab 09/26/2016 Active nystatin (MYCOSTATIN) 941024 UNIT/GM powder Apply to affected area 3 [...] Comments Blood Pressure 118/75 09/26/2016 12:33 PM INSTALLMENT AGENT Pulse 83 09/26/2016 12:33 PM INSTALLMENT AGENT Temperature 36.6 C (97.9 F) 09/26/2016 12:33 PM INSTALLMENT AGENT Respiratory Rate 18 09/26/2016 12:33 PM INSTALLMENT AGENT Oxygen Saturation 99% 09/26/2016 12:33 PM INSTALLMENT AGENT Inhaled Oxygen Concentration - - Weight 81.2 kg (179 lb) 10/26/2016 10:26 AM INSTALLMENT AGENT Height 185.4 cm (6' 1 ) 10/26/2016 10:26 AM INSTALLMENT AGENT Body Mass Index 23.62 10/26/2016 10:26 AM INSTALLMENT AGENT Functional Status Functional Status Response Date of Assess ment Is person deaf or have serious hearing difficult y? No 09/24/2016 Is person blind or have serious difficulty seein g? No 09/24/2016 Does person have serious dif ficulty walking/climbing stairs? No 09/24/2016 Does person have difficulty dressing/bathing? No 09/24/2016 Does person have difficulty doing errands alone? No 09/24/2016 Cognitive Status Response Date of Assessm ent Does person have difficulty concentrating/remembering/making decisions? No 09/24/2016 Plan of Treatment Not on file Medical Devices Implanted Type Area Wax Engraver Device Identifier Shelf Expiration Date Model / Serial / Lot Shell Actb 58mm 3 Hl Poly R3 Std Implanted:Qty: 1 on 09/24/2016 by Francisco Shankar MD at [facility] Right: Hip [employer] 06/23/2026 [id number] / / [id number] Acetabular Liner Uhmwpe Implanted:Qty: 1 on 09/24/2016 by Francisco Shankar MD at [facility] Right: Hip [employer] 07/29/2024 [id number] / / [id number] Screw 6.5mm 40mm Sphr Hip Actb Reflc Implanted:Qty: 1 on 09/24/2016 by Francisco Shankar MD at [facility] Right: Hip [employer] 06/06/2025 [id number] / / [id number] Stem Standard With Ti/Eason Implanted:Qty: 1 on 09/24/2016 by Francisco Shankar MD at [facility] Right: Hip [employer] 06/08/2023 [id number] / / [id number] Ceramic Modular Femoral Head Implanted:Qty: 1 on 09/24/2016 by Francisco Shankar MD at [facility] Right: Hip [employer] 07/13/2026 [id number] / / [id number] Cal Uncem Hip All Inclusive Implanted:Qty: 1 on 09/24/2016 by Francisco Shankar MD at [facility] [employer] BILL ONLY [employer] HIP ALL INCLUSIVE SNORTH / / Advance Directives * Full Code (Latest Code Status on File) Date Activated Date Inactivated Comments 09/24/2016 4:27 PM 09/26/2016 3:16 PM * Full Code Date Activated Date Inactivated Comments 09/24/2016 2:17 PM 09/24/2016 4:27 PM Care Teams Applied Technologist Relationship Specialty Start Date End Date Landon Franklin MD PCP - General Internal Medicine 06/30/15
[2024-10-05 09:48] LABS: Anion Gap 9 mmol/L (4-12); Blood Urea Nitrogen 26 mg/dL (7-18); Calcium 9.1 mg/dL (8.5-10.1); Carbon Dioxide 28 mmol/L (21-32); Chloride 105 mmol/L (98-108); Estimated Glomerular Filt Rate 54; Glucose 91 mg/dL (70-99); Osmolality Calculated 298 mOsm/kg (285-295); Sodium 142 mmol/L (136-145)
== END 2024-10-05 08:33 | disposition home or self-care (01) ==
LOC: CHSLAB 08:34
PROVIDERS: PCP Internal Medicine; Visit Provider Internal Medicine
DX: I10 Essential (primary) hypertension (principal)
CPT/HCPCS: 36415; 80048

== ENCOUNTER 2024-10-24 14:25 | Outpatient (CLI) | payer MEDICARE, OTHER, SELFPAY ==
--- NOTE | ~2024-10-24 | XR_ITS ---
EXAMINATION: XR chest 2V DATE: 10/24/2024 14:51 INDICATION: Cough and chills. TECHNIQUE: Frontal and lateral views of the chest were obtained. COMPARISON: Chest 2 views 09/23/2023, chest CT 09/26/2023 FINDINGS: There is mild scarring at the lung apices. No pleural effusion or pneumothorax. The heart s ize is normal. Calcified right hilar lymph nodes are consistent with old granulomatous disease. IMPRESSION: 1. Stable mild scarring at the lung apices. Reviewed, dictated and finalized at location A. ER HELPER
[2024-10-24 14:43] LABS: Basophils Absolute Auto 0.04 K/mm3 (0.00-0.10); Basophils Percent Auto 0.4 % (0.0-1.0); Eosinophils Absolute Auto 0.03 K/mm3 (0.02-0.50); Eosinophils Percent Auto 0.3 % (1.0-6.0); Hematocrit 37.6 % (37.0-46.0); Hemoglobin 12.7 g/dL (12.4-15.3); Immature Granulocyte Absolute 0.04 K/mm3 (0.00-0.00); Immature Granulocyte Percent A 0.4 % (0.0-0.0); Lymphocytes Absolute Auto 0.49 K/mm3 (1.10-4.50); Lymphocytes Percent Auto 4.6 % (18.0-42.0); Mean Corpuscular HGB Conc 33.8 g/dL (32-36); Mean Corpuscular Hemoglobin 30.2 pg (27.0-31.0); Mean Corpuscular Volume 89.5 fL (78.0-102.0); Mean Platelet Volume 9.6 fl (8.7-11.0); Monocytes Absolute Auto 0.81 K/mm3 (0.10-0.90); Monocytes Percent Auto 7.6 % (2.0-11.0); Neutrophils Percent Auto 86.7 % (50.0-70.0); Platelet Count Result 216 K/mm3 (150-420); Red Cell Distribution Width 14.1 % (11.6-14.4); White Blood Count 10.7 K/mm3 (4.8-10.8)
[2024-10-24 14:58] LABS: Alanine Aminotransferase 33 U/L (16-63); Albumin Level 3.3 g/dL (3.4-5.0); Alkaline Phosphatase 114 U/L (46-116); Anion Gap 14 mmol/L (4-12); Aspartate Amino Transferase 24 U/L (15-37); Blood Urea Nitrogen 22 mg/dL (7-18); Calcium 8.8 mg/dL (8.5-10.1); Carbon Dioxide 23 mmol/L (21-32); Chloride 103 mmol/L (98-108); Estimated Glomerular Filt Rate 56; Glucose 112 mg/dL (70-99); Osmolality Calculated 294 mOsm/kg (285-295); Potassium 4.1 mmol/L (3.5-5.1); Sodium 140 mmol/L (136-145); Total Protein 7.1 g/dL (6.4-8.2)
[2024-10-24 16:24] LABS: RSV RNA, RT-PCR Negative (Negative)
--- OUTSIDE RECORDS SUMMARY | 2024-10-24 16:34 | XMS_ITS ---
Author Organization [facility] Address [address] [place], [place] [id number] Care Team Providers Care Gre Instructor Name Role Phone Ok Franklin Unavailable Unavailable DENISE GUERRA Unavailable [phone] Allergies No Known Allergies REASON FOR VISIT Patient presents for at-risk foot care . The patient has painful toenails and calluses that are causing difficulty with ambulation and shoegear. 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 Provider Name:DENISE GUERRA, 08:10:00 AM, [address] [place] [address], [id number], Progress Notes * Izaiah HAYESDOB:1945 ( 79 yo M)Acc No.[id number]:09/13/2024 Patient: Izaiah ALBRIGHT Provider: Mavis Guerra DPM :1945 A ge:79 Y S ex:Male Date:09/13/2024 Address:[address] [place], [place] [id number] Subjective: * Chief Complaints: * Helder gracia [...] - M79.672 4 . 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 Acquired keratosis [keratoderma] palmaris et plantaris - L85.1 Plan: * Treatment: 2. A cquired keratosis [keratoderma] palmaris et plantaris Notes: A total of 1 corns or calluses, as described in the note above, were cut and pared utilizing a #15 blade * Procedure Codes: 1 1055 TRIM SKIN LESION, Modifiers: Q8 08083 DEBRIDE NAIL, 6 OR MORE, Modifiers: 59 , Q8 * Follow Up: 1 0 - 12 weeks (Reason: At-Risk Foot care, sooner if problems develop.) * Billing Information: * Visit Code: * Procedure Codes: 76144 TRIM SKIN LESION. Modifiers: Q8 47051 DEBRIDE NAIL, 6 OR MORE. Modifiers: 59, Q8 * TAL PRINT OPERATOR Sign off status: Completed true * Provider: Mavis Guerra DPM Date: 0 09/13/2024 Generated for Kaylee steinberg/Faxing/eTransmitting on: 0 10/24/2024 04:34 PM DIGITAL PRINT OPERATOR History and Physical Notes * HPI (History [...]
--- OUTSIDE RECORDS SUMMARY | 2024-10-24 16:34 | XMS_ITS | Patient Health Record ---
Author Organization [facility] Address [address] [place], [place] [id number] Care Team Providers Care Dictaphone Mechanic Name Role Phone Ok Franklin Unavailable Unavailable DENISE GUERRA Unavailable [phone] KATHE DOYLE Unavailable [phone] Allergies No Known Allergies Reason For Referral No Information Vital Signs Height-cm 180.34 cm 01/12/2024 Weight-kg 87.09 kg 01/12/2024 Height 71 in 01/12/2024 Weight 192 lbs 01/12/2024 BMI 26.78 kg/m2 01/12/2024 Encounters Encounter Location Date Provider Diagnosis [facility] [address] [place], [place] [id number] 11/10/2023 KATHE DOYLE Other hammer toe(s) (acquired), right foot M20.41 ; Tinea unguium B35.1 ; Other hammer toe(s) (acquired), left foot M20.42 ; Pain in right toe(s) M79.674 ; Pain in left toe(s) M79.675 ; Unspecified atherosclerosis of [place] arteries of extremities, bilateral legs I70.203 and Acquired keratosis [keratoderma] palmaris et plantaris L85.[address] [id number] 01/12/2024 KATHE DOYLE Other hammer toe(s) (acquired), right foot M20.41 ; Tinea unguium B35.1 ; Other hammer toe(s) (acquired), left foot M20.42 ; Pain in right toe(s) M79.674 ; Pain in left toe(s) M79.675 ; Unspecified atherosclerosis of [place] arteries of extremities, bilateral legs I70.203 ; Acquired keratosis [keratoderma] palmaris et plantaris L85.1 ; Pain in right foot M79.671 and Pain in left foot M79.[address] [id number] 04/26/2024 KATHE YANIRA Other hammer toe(s) (acquired), right foot M20.41 ; Tinea unguium B35.1 ; Other hammer toe(s) (acquired), left foot M20.42 ; Pain in right toe(s) M79.674 ; Pain in left toe(s) M79.675 ; Unspecified atherosclerosis of [place] arteries of extremities, bilateral legs I70.203 and Acquired keratosis [keratoderma] palmaris et plantaris L85.[address] [id number] 06/28/2024 KATHE DOYLE Other hammer toe(s) (acquired), right foot M20.41 ; Tinea unguium B35.1 ; Other hammer toe(s) (acquired), left foot M20.42 ; Pain in right toe(s) M79.674 ; Pain in left toe(s) M79.675 ; Unspecified atherosclerosis of [place] arteries of extremities, bilateral legs I70.203 and Acquired keratosis [keratoderma] palmaris et plantaris L85.[address] [id number] 09/13/2024 DENISE GUERRA Tinea unguium B35.1 ; Pain in right foot M79.671 ; Pain in left foot M79.672 ; Atherosclerosis of [place] arteries of extremities with intermittent claudication, bilateral [...] toe(s) (ICD-10 - M79.674) 09/13/2024 Atherosclerosis of [place] arteries of extremities with intermittent claudication, bilateral [...] (ICD-10 - M79.675) 01/12/2024 Unspecified atherosclerosis of [place] arteries of extremities, bilateral legs (ICD-10 - I70.203) Patient educated on risks and aggravating factors of PVD, including conservative treatment options such as a diet and exercise regimen to aid in slowing progression of vascular disease 11/10/2023 Unspecified atherosclerosis of [place] arteries of extremities, bilateral legs (ICD-10 - I70.203) Patient educated on risks and aggravating factors of PVD, including conservative treatment options such as a diet and exercise regimen to aid in slowing progression of vascular disease 04/26/2024 Unspecified atherosclerosis of [place] arteries of extremities, bilateral legs (ICD-10 - I70.203) Patient educated on risks and aggravating factors of PVD, including conservative treatment options such as a diet and exercise regimen to aid in slowing progression of vascular disease 06/28/2024 Unspecified atherosclerosis of [place] arteries of extremities, bilateral legs (ICD-10 - [...] Appt Details Provider Name:DENISE SHELLYKeyana, 08:10:00 AM, [address] [place] [address], [id number], Insurance Providers Payer Name Payer Address Payer Phone Subscriber Number Group Number Insured Name Patient Relationship to Insured Coverage Start Date Coverage End Date Medicare Part B [facility] [address] [place] [phone] [id number] Izaiah Hayes Self - patient is the insured [employer] [facility] [address] [facility] [place] [id number] Izaiah Hayes Self - patient is the insured
--- OUTSIDE RECORDS SUMMARY | 2024-10-24 16:34 | XMS_ITS ---
Author Organization [facility] Address [address] [place], [place] [id number] Care Team Providers Care Advanced Practice Registered Nurse Name Role Phone Ok Franklin Unavailable Unavailable KATHE DOYLE Unavailable [phone] REASON FOR VISIT *General care Encounters Encounter Location Date Provider Diagnosis [address] [id number] 09/06/2024 KATHE DOYLE Plan Of Treatment Next Appt Details Provider Name:DENISE GUERRA, 08:10:00 AM, [address] [place] [address], [id number], Progress Notes * FREDDYzIaiahDOB:1945 ( 79 yo M)Acc No.[id number]:09/06/2024 Patient: Izaiah ALBRIGHT Provider: Elias DOYLE :1945 A ge:79 Y S ex:Male Date:09/06/2024 Address:[address] [place], [phone] Subjective: * Chief Complaints: * 1 . *General care. * Medical History: Objective: * Vitals: Assessment: Plan: * Treatment: * Billing Information: * Visit Code: * Procedure Codes: * Electronic signature of SHILA DOYLE DPM on 10/24/2024 at 04:34 PM HIGH SCHOOL FOOTBALL COACH Sign off status: Pending * Provider: Elias DOYLE Date: 0 09/06/2024 Generated for Kaylee steinberg/Tristen/Dale on: 0 10/24/2024 04:34 PM HIGH SCHOOL FOOTBALL COACH
--- OUTSIDE RECORDS SUMMARY | 2024-10-24 16:34 | XMS_ITS | Referral Summary ---
Author Organization [facility] Address [address] [place] [address] Care Team Providers Care Waistband Setter Name Role Phone Landon Franklin MD Primary Care Provider [phone] Source Comments [facility],non-owned Affiliates and Associated Physician Practices is amultiple site organization consisting of ambulatory clinics and hospital sitesin [place], [place], [place] and [place]. This disclosure is being madepursuant to the Care Everywhere program and may not contain all information available regarding this patient. Last updated 18.[facility] Allergies No known active allergies Medications * [...] meals 30 Tab 09/26/2016 Active nystatin (MYCOSTATIN) 972525 UNIT/GM powder Apply to affected area 3 [...] Comments Blood Pressure 118/75 09/26/2016 12:33 PM MATHEMATICS TECHNICIAN Pulse 83 09/26/2016 12:33 PM MATHEMATICS TECHNICIAN Temperature 36.6 C (97.9 F) 09/26/2016 12:33 PM MATHEMATICS TECHNICIAN Respiratory Rate 18 09/26/2016 12:33 PM MATHEMATICS TECHNICIAN Oxygen Saturation 99% 09/26/2016 12:33 PM MATHEMATICS TECHNICIAN Inhaled Oxygen Concentration - - Weight 81.2 kg (179 lb) 10/26/2016 10:26 AM MATHEMATICS TECHNICIAN Height 185.4 cm (6' 1 ) 10/26/2016 10:26 AM MATHEMATICS TECHNICIAN Body Mass Index 23.62 10/26/2016 10:26 AM MATHEMATICS TECHNICIAN Functional Status Functional Status Response Date of [...] on file Medical Devices Implanted Type Area Shipping Clerk Crating Device Identifier Shelf Expiration Date Model / Serial / Lot Shell Actb 58mm 3 Hl Poly R3 Std Implanted:Qty: 1 on 09/24/2016 by Francisco Shankar MD at [facility] Right: Hip [employer] 06/23/2026 [id number] / / [id number] Acetabular Liner Uhmwpe Implanted:Qty: 1 on 09/24/2016 by Francisco Shankar MD at [facility] Right: Hip [employer] 07/29/2024 [id number] / / [id number] Screw 6.5mm 40mm Sphr Hip Actb Reflc Implanted:Qty: 1 on 09/24/2016 by Francisco Shankar MD at [facility] Right: Hip [employer] 06/06/2025 [id number] / / [id number] Stem Standard With Ti/Eason Implanted:Qty: 1 on 09/24/2016 by Francisco Shankar MD at [facility] Right: Hip [employer] 06/08/2023 [id number] / / [id number] Ceramic Modular Femoral Head Implanted:Qty: 1 on 09/24/2016 by Francisco Shankar MD at [facility] Right: Hip [employer] 07/13/2026 [id number] / / [id number] Cal Uncem Hip All Inclusive Implanted:Qty: 1 on 09/24/2016 by Francisco Shankar MD at [facility] [employer] BILL ONLY [employer] HIP ALL INCLUSIVE SNORTH / / Insurance Payer Benefit Plan / Group Subscriber ID Effective Dates Phone Address Type MEDICARE MEDICARE OP W/PART B ONLY [id number] Effective for all dates [address] [address] [place] [address] Medicare AETNA AETNA MEDICARE ADV HMO/PPO [id number] Effective for all dates [address] [place] [address] Medicare-[facility] [place] MEDICARE SUPPLEMENT [id number] Effective for all dates [address] [address] [place] [address] Commercial COMMERCIAL GENERIC COMMERCIAL PLAN GENERIC [id number] Effective for all dates [address] [place] [address] Commercial MEDICARE MEDICARE PART A AND B [id number] Effective for all dates [phone] [address] [place] [address] Medicare Advance Directives * Full Code (Latest Code Status on File) Date Activated Date Inactivated Comments 09/24/2016 4:27 PM 09/26/2016 3:16 PM * Full Code Date Activated Date Inactivated Comments 09/24/2016 2:17 PM 09/24/2016 4:27 PM Care Teams Waistband Setter Relationship Specialty Start Date End Date Landon Franklin MD PCP - General Internal Medicine 06/30/15
--- OUTSIDE RECORDS SUMMARY | 2024-10-24 16:34 | XMS_ITS ---
Author Organization [facility] Address [address] [place], [place] [phone] Care Team Providers Care Accounts Receivable Supervisor Name Role Phone Ok Franklin Unavailable Unavailable KATHE DOYLE Unavailable [phone] REASON FOR VISIT *General care Encounters Encounter Location Date Provider Diagnosis [address] [id number] 06/28/2024 KATHE DOYLE Other hammer toe(s) (acquired), right foot M20.41 ; Tinea unguium B35.1 ; Other hammer toe(s) (acquired), left foot M20.42 ; Pain in right toe(s) M79.674 ; Pain in left toe(s) M79.675 ; Unspecified atherosclerosis of [place] arteries of extremities, bilateral legs I70.203 and [...] (ICD-10 - M79.675) 06/28/2024 Unspecified atherosclerosis of [place] arteries of extremities, bilateral legs (ICD-10 - [...] OTC and prescription treatments. Unspecified atherosclerosis of [place] arteries of extremities, bilateral legs Patient educated [...] Months, Reason: Provider Name:DENISE GUERRA, 08:10:00 AM, [address] [place] [address], [id number], Progress Notes * Izaiah HAYESDOB:1945 ( 79 yo M)Acc No.[id number]:06/28/2024 Patient: Helder ENGLANDIzaiah Provider: Elias DOYLE :1945 A ge:79 Y S ex:Male Date:06/28/2024 Address:[address] [place], [place] [id number] Subjective: * Chief Complaints: * 1 . [...] seen by Dr. Franklin was 01/2024., Initials [facility]. * ROS: G eneral / Constitutional: Patient denies w eakness. R espiratory: Patient denies c hronic cough, shortness of breath, sputum production. C ardiovascular: Patient denies c hest pain, history of IA, irregular heartbeat. M usculoskeletal: Patient complains of [...] M79.675 6 . U nspecified atherosclerosis of [place] arteries of extremities, bilateral legs - I70.203 [...] were emphasized. 3. U nspecified atherosclerosis of [place] arteries of extremities, bilateral legs Notes: Patient [...] LESIONS, 2 TO 4, Modifiers: Q8 , 11562 DEBRIDE NAIL, 6 OR MORE, Modifiers: 59 , Q8 * Follow Up: 3 Months * Billing Information: * Visit Code: * Procedure Codes: 07285 TRIM SKIN LESIONS, 2 TO 4. Modifiers: Q8 69958 DEBRIDE NAIL, 6 OR MORE. Modifiers: 59, Q8 * MATIC TESTER MECHANIC Sign off status: Completed true * Provider: Elias DOYLE Date: Generated for Kaylee steinberg/Tristen/Andersonitting on: 0 10/24/2024 04:33 PM PNEUMATIC TESTER MECHANIC History and Physical Notes * HPI (History [...]
--- OUTSIDE RECORDS SUMMARY | 2024-10-24 16:34 | XMS_ITS | Patient Health Summary ---
Author Organization [facility] Address [address] [place] [address] Care Team Providers Care Surveyor Hydrographic Name Role Phone Landon Franklin MD Primary Care Provider [phone] Note from [facility],non-owned Affiliates and Associated Physician Practices is amultiple site organization consisting of ambulatory clinics and hospital sitesin [place], [place], [place] and [place]. This disclosure is being madepursuant to the Care Everywhere program and may not contain all information available regarding this patient. Last updated 18.[facility] [place] Allergies No known active allergies Medications * [...] times daily after meals * nystatin (MYCOSTATIN) 308189 UNIT/GM powder(Started 09/26/2016) Apply to affected area [...] Comments Blood Pressure 118/75 09/26/2016 12:33 PM SENIOR RESEARCH MANAGER Pulse 83 09/26/2016 12:33 PM SENIOR RESEARCH MANAGER Temperature 36.6 C (97.9 F) 09/26/2016 12:33 PM SENIOR RESEARCH MANAGER Respiratory Rate 18 09/26/2016 12:33 PM SENIOR RESEARCH MANAGER Oxygen Saturation 99% 09/26/2016 12:33 PM SENIOR RESEARCH MANAGER Inhaled Oxygen Concentration - - Weight 81.2 kg (179 lb) 10/26/2016 10:26 AM SENIOR RESEARCH MANAGER Height 185.4 cm (6' 1 ) 10/26/2016 10:26 AM SENIOR RESEARCH MANAGER Body Mass Index 23.62 10/26/2016 10:26 AM SENIOR RESEARCH MANAGER Medical Devices Implanted Type Area Senior C Software Engineer Device Identifier Shelf Expiration Date Model / Serial / Lot Shell Actb 58mm 3 Hl Poly R3 Std Implanted:Qty: 1 on 09/24/2016 by Francisco Shankar MD at [facility] Right: Hip [employer] 06/23/2026 [id number] / / [id number] Acetabular Liner Uhmwpe Implanted:Qty: 1 on 09/24/2016 by Francisco Shankar MD at [facility] Right: Hip [employer] 07/29/2024 [id number] / / [id number] Screw 6.5mm 40mm Sphr Hip Actb Reflc Implanted:Qty: 1 on 09/24/2016 by Francisco Shankar MD at [facility] Right: Hip [employer] 06/06/2025 [id number] / / [id number] Stem Standard With Ti/Eason Implanted:Qty: 1 on 09/24/2016 by Francisco Shankar MD at [facility] Right: Hip [employer] 06/08/2023 [id number] / / [id number] Ceramic Modular Femoral Head Implanted:Qty: 1 on 09/24/2016 by Francisco Shankar MD at [facility] Right: Hip [employer] 07/13/2026 [id number] / / [id number] Cal Uncem Hip All Inclusive Implanted:Qty: 1 on 09/24/2016 by Francisco Shankar MD at [facility] BILL ONLY [employer] [...] W RIGHT HIP 2VW (10/26/2016 10:22 AM SENIOR RESEARCH MANAGER) Only the most recent of2 resultswithin the time period is included. Anatomical Region Laterality Modality Other Impressions 10/26/2016 10:40 AM SENIOR RESEARCH MANAGER IMPRESSION: Interval right total hip arthroplasty. This report was electronically signed by ROGELIO DE LOS SANTOS MD on 10/26/2016 10:40 AM . Narrative 10/26/2016 10:40 AM SENIOR RESEARCH MANAGER Exam: XR HIP RIGHT 2-3 VW W/ [...] RIGHT 3VW OR MORE (10/26/2016 10:17 AM SENIOR RESEARCH MANAGER) Anatomical Region Laterality Modality Ankle / Foot Other Impressions 10/26/2016 10:38 AM SENIOR RESEARCH MANAGER IMPRESSION: No acute osseous abnormality. This report was electronically signed by ROGELIO DE LOS SANTOS MD on 10/26/2016 10:38 AM . Narrative 10/26/2016 10:38 AM SENIOR RESEARCH MANAGER Exam: XR FOOT RIGHT 3+ VW History: [...] * CARDIAC EKG ORDER (09/27/2016 9:33 PM SENIOR RESEARCH MANAGER) Narrative 09/27/2016 9:33 PM SENIOR RESEARCH MANAGER Ordered by an unspecified provider. Scanned Document CARDIAC SERVICES ORD ERABLES * CARDIAC RHYTHM STRIP ORDER (09/27/2016 9:33 PM SENIOR RESEARCH MANAGER) Narrative 09/27/2016 9:33 PM SENIOR RESEARCH MANAGER Ordered by an unspecified provider. Scanned Document CARDIAC SERVICES ORD ERABLES * APHERESIS/TRANSFUSION ORDER (09/27/2016 9:33 PM SENIOR RESEARCH MANAGER) Narrative 09/27/2016 9:33 PM SENIOR RESEARCH MANAGER Ordered by an unspecified provider. Scanned Document NURSING - VITAL SIGN S AND ASSESSMENT * LAB RESULTS ORDER (09/27/2016 9:33 PM SENIOR RESEARCH MANAGER) Narrative 09/27/2016 9:33 PM SENIOR RESEARCH MANAGER Ordered by an unspecified provider. Scanned Document LAB - THERAPEUTIC DR UG MONITORING ORDERABLES * IMAGING/RADIOLOGY/XRAY RESULTS ORDER (09/27/2016 9:32 PM SENIOR RESEARCH MANAGER) Anatomical Region Laterality Modality Other Narrative 09/27/2016 9:32 PM SENIOR RESEARCH MANAGER Ordered by an unspecified provider. Scanned Document IMAGING * (ABNORMAL) HGB HCT PANEL (09/26/2016 10:43 AM SENIOR RESEARCH MANAGER) Only the most recent of5 resultswithin the time period is included. Hemoglobin 10.4(L) 12.0 - 17.6 gm/dL 09/26/2016 11:05 AM SENIOR RESEARCH MANAGER [facility] Hematocrit 30.6(L) 35.2 - 51.7 % 09/26/2016 11:05 AM SENIOR RESEARCH MANAGER [facility] Blood BLOOD SPECIMEN / Unknown Lab Venipuncture / Unknown 09/26/2016 10:43 AM SENIOR RESEARCH MANAGER 09/26/2016 10:57 AM SENIOR RESEARCH MANAGER Carol Kingsley MD LAB - HEMATOLOGY KATHERINE CHAMORRO Performing Organization Address [facility] Co de Phone Number [facility] [address] [place] [address] * (ABNORMAL) BASIC METABOLIC PANEL (CALCIUM TOTAL) (09/26/2016 4:07 AM SENIOR RESEARCH MANAGER) Only the most recent of2 resultswithin the time period is included. Pathologist [facility] Glucose 119(H) 74 - 106 mg/dL 09/26/2016 4:49 AM [facility] Sodium 136 136 - 145 mmol/L 09/26/2016 4:49 AM [facility] Potassium 4.0 3.5 - 5.1 mmol/L 09/26/2016 4:49 AM [facility] Chloride 103 98 - 107 mmol/L 09/26/2016 4:49 AM [facility] CO2 26 22 - 31 mmol/L 09/26/2016 4:49 AM [facility] Calcium 8.0(L) 8.5 - 10.1 mg/dL 09/26/2016 4:49 AM [facility] Anion Gap 7(L) 8 - 16 mmol/L 09/26/2016 4:49 AM [facility] BUN 24(H) 7 - 21 mg/dL 09/26/2016 4:49 AM [facility] Creatinine 1.30 0.50 - 1.30 mg/dL 09/26/2016 4:49 AM [facility] eGFR by MDRD 54 mL/min/1.7 3m2 09/26/2016 4:49 AM [facility] eGFR by MDRD >60 mL/min/1.7 3m2 09/26/2016 4:49 AM [facility] Blood BLOOD SPECIMEN / Unknown Lab Venipuncture / Unknown 09/26/2016 4:07 AM SENIOR RESEARCH MANAGER 09/26/2016 4:21 AM SENIOR RESEARCH MANAGER Bertram Smith MD LAB - CHEMISTRY MAGDALENO WYATT Performing Organization Address City/[facility]/ZIP Co de Phone Number [facility] [address] [place] [address] * CULTURE MRSA (09/25/2016 6:40 PM SENIOR RESEARCH MANAGER) Culture Negative for methicillin-resist ant Staphylococcus aureus (MRSA) CAREY 09/27/2016 6:43 AM SENIOR RESEARCH MANAGER [facility] Microbiology SPECIMEN FROM NASAL FOSSAE / Unknown Collection / Unknown 09/25/2016 6:40 PM SENIOR RESEARCH MANAGER 09/25/2016 7:51 PM SENIOR RESEARCH MANAGER Carol Kingsley MD LAB - MICROBIOLOGY O RDERABLES [facility] [address] [place] [phone] * (ABNORMAL) URINALYSIS ROUTINE W/REFLEX TO CULTURE (09/25/2016 12:16 PM SENIOR RESEARCH MANAGER) Only the most recent of2 resultswithin the time period is included. Color UA Yellow Straw, Yellow, Dark Yellow 09/25/2016 12:53 PM SENIOR RESEARCH MANAGER [facility] Clarity UA Clear 09/25/2016 12:53 PM SENIOR RESEARCH MANAGER [facility] Specific [place] UA 1.014 1.005 - 1.030 09/25/2016 12:53 PM SENIOR RESEARCH MANAGER [facility] pH UA 6.0 5.0 - 8.0 pH 09/25/2016 12:53 PM SENIOR RESEARCH MANAGER [facility] Protein UA Negative Negative 09/25/2016 12:53 PM SENIOR RESEARCH MANAGER [facility] Blood UA Negative Negative 09/25/2016 12:53 PM SENIOR RESEARCH MANAGER [facility] Leukocyte UA Trace(A) Negative 09/25/2016 12:53 PM SENIOR RESEARCH MANAGER [facility] Nitrite UA Negative Negative 09/25/2016 12:53 PM SENIOR RESEARCH MANAGER [facility] Glucose UA Negative Negative 09/25/2016 12:53 PM SENIOR RESEARCH MANAGER [facility] Ketone UA Negative Negative 09/25/2016 12:53 PM SENIOR RESEARCH MANAGER [facility] Bilirubin UA Negative Negative 09/25/2016 12:53 PM SENIOR RESEARCH MANAGER [facility] Urobilinogen UA 0.2 0.1 - 1.0 EU/dL 09/25/2016 12:53 PM SENIOR RESEARCH MANAGER [facility] WBC UA Auto 10-20(A) 0-2, 2-5 # /hpf 09/25/2016 12:53 PM SENIOR RESEARCH MANAGER [facility] RBC UA Auto 2-5 0-2, 2-5 # /hpf 09/25/2016 12:53 PM SENIOR RESEARCH MANAGER [facility] Epithelial Cell UA Auto 0-2 0-2, 2-5 # /hpf 09/25/2016 12:53 PM SENIOR RESEARCH MANAGER [facility] Reflex Status Culture to follow 09/25/2016 12:53 PM SENIOR RESEARCH MANAGER [facility] Urine URINE SPECIMEN OBTAINED BY CLEAN CATCH PROCEDURE / Unknown Collection / Unknown 09/25/2016 12:16 PM SENIOR RESEARCH MANAGER 09/25/2016 12:38 PM SENIOR RESEARCH MANAGER Carol Kingsley MD LAB - URINALYSIS ORD ERABLES Performing Organization Address City/[facility]/ZIP Co de Phone Number [facility] [address] [place] [address] * CULTURE URINE (09/25/2016 12:16 PM SENIOR RESEARCH MANAGER) Culture No growth (<1,000 CFU/mL) CAREY 09/26/2016 3:15 PM SENIOR RESEARCH MANAGER [facility] Urine URINE SPECIMEN OBTAINED BY CLEAN CATCH PROCEDURE / Unknown Collection / Unknown 09/25/2016 12:16 PM SENIOR RESEARCH MANAGER 09/25/2016 12:38 PM SENIOR RESEARCH MANAGER Carol Kingsley MD LAB - MICROBIOLOGY O RDERABLES [facility] [address] [place] [phone] * IP CONSULT TO INTERNAL MEDICINE (09/25/2016 12:48 AM SENIOR RESEARCH MANAGER) Narrative Procedure Note Hyacinth Orellana APRN-GOMEZ - 09/24/2016 4:49 PM CST Full note dictated [id number] Imp: Patient Active Problem List Diagnosis Post-traumatic osteoarthritis of right hip Hypertension Plan: 1 right hip arthritis 2 PPx 3 HTN 4 F/E/N Bertram Smith MD INPATIENT CONSULT OR DERABLES * XR PELVIS 1 OR 2 VW (IN PACU) (09/24/2016 2:06 PM SENIOR RESEARCH MANAGER) Anatomical Region Laterality Modality Pelvis Radiographic Elena ging 09/24/2016 2:22 PM SENIOR RESEARCH MANAGER Impressions 09/24/2016 2:26 PM SENIOR RESEARCH MANAGER Satisfactory postop appearance. Edited by Rajni Gomez on 09/24/2016 2:26 PM Narrative 09/24/2016 2:26 PM SENIOR RESEARCH MANAGER PELVIS AP VIEW HISTORY: Postop. An AP [...] RDERABLES * CULTURE MSSA/MRSA (09/20/2016 10:54 AM SENIOR RESEARCH MANAGER) Only the most recent of2 resultswithin the time period is included. Culture Negative for Staphylococcus aureus (MRSA/MSSA) CAREY 09/22/2016 10:02 AM SENIOR RESEARCH MANAGER [facility] Microbiology SPECIMEN FROM NASAL FOSSAE / Unknown Collection / Unknown 09/20/2016 10:54 AM SENIOR RESEARCH MANAGER 09/20/2016 10:55 AM SENIOR RESEARCH MANAGER Francisco Shankar MD LAB - MICROBIOLOGY ORDERABLES [facility] [address] [place] [address], [facility] [phone] * TYPE + SCREEN PANEL (09/13/2016 8:26 AM SENIOR RESEARCH MANAGER) ABO A 09/13/2016 9:39 AM SENIOR RESEARCH MANAGER [facility] Rh Type Positive 09/13/2016 9:39 AM SENIOR RESEARCH MANAGER [facility] Comment:History check perfor med. No retype required. Antibody Screen Negative 09/13/2016 9:39 AM [facility] Blood Bank BLOOD SPECIMEN / Unknown Venipuncture / Unknown 09/13/2016 8:26 AM SENIOR RESEARCH MANAGER 09/13/2016 8:47 AM SENIOR RESEARCH MANAGER Conrad Solorio MD LAB - BLOOD BANK O RDERABLES [facility] [address] [place] [address], [facility] * (ABNORMAL) CBC W AUTO DIFFERENTIAL (09/13/2016 8:26 AM SENIOR RESEARCH MANAGER) WBC 9.6 4.4 - 10.7 x10E9/L 09/13/2016 8:53 AM [facility] WBC Corrected x10E9/L 09/13/2016 8:53 AM [facility] RBC 4.44 3.80 - 5.40 x10E12/L 09/13/2016 8:53 AM [facility] Hemoglobin 14.0 12.0 - 17.6 gm/dL 09/13/2016 8:53 AM [facility] Hematocrit 40.6 35.2 - 51.7 % 09/13/2016 8:53 AM [facility] MCV 91.4 80.7 - 98.3 fl 09/13/2016 8:53 AM [facility] MCH 31.5 26.7 - 34.0 pg 09/13/2016 8:53 AM [facility] MCHC 34.5 30.8 - 35.9 gm/dL 09/13/2016 8:53 AM [facility] Platelet Count 273 153 - 416 x10E9/L 09/13/2016 8:53 AM [facility] RDW-CV 14.0 12.1 - 14.9 % 09/13/2016 8:53 AM [facility] MPV 9.5 9.4 - 12.9 fl 09/13/2016 8:53 AM [facility] Neutrophils % 71.7 44.0 - 73.0 % 09/13/2016 8:53 AM [facility] Lymphocytes % 15.6(L) 20.0 - 43.0 % 09/13/2016 8:53 AM [facility] Monocytes % 8.7 5.0 - 13.0 % 09/13/2016 8:53 AM [facility] Eosinophils % 3.1 0.0 - 6.0 % 09/13/2016 8:53 AM [facility] Basophils % 0.6 0.0 - 2.0 % 09/13/2016 8:53 AM [facility] Immature Granulocytes 0.3 0 - 1 % 09/13/2016 8:53 AM [facility] Neutrophil Absolute 6.87 2.01 - 7.14 x10E9/L 09/13/2016 8:53 AM [facility] Lymphocytes Absolute 1.50 1.07 - 3.94 x10E9/L 09/13/2016 8:53 AM [facility] Monocytes Absolute 0.83 0.26 - 1.07 x10E9/L 09/13/2016 8:53 AM [facility] Eosinophils Absolute 0.30 0 - 0.47 x10E9/L 09/13/2016 8:53 AM [facility] Basophils Absolute 0.06 0 - 0.08 x10E9/L 09/13/2016 8:53 AM [facility] Immature Granulocytes Absolute 0.03 0.00 - 0.06 x10E9/L 09/13/2016 8:53 AM [facility] nRBC Auto 0 /100 WBC 09/13/2016 8:53 AM [facility] Blood BLOOD SPECIMEN / Unknown 09/13/2016 8:26 AM SENIOR RESEARCH MANAGER 09/13/2016 8:47 AM [facility] Francisco Shankar MD LAB - HEMATOLOGY OR DERABLES [facility] [address] [place] [address] * (ABNORMAL) COMPREHENSIVE METABOLIC PANEL (09/13/2016 8:26 AM [facility]) [facility] Glucose 103 74 - 106 mg/dL 09/13/2016 9:07 AM [facility] Sodium 136 136 - 145 mmol/L 09/13/2016 9:07 AM [facility] Potassium 4.3 3.5 - 5.1 mmol/L 09/13/2016 9:07 AM [facility] Chloride 105 98 - 107 mmol/L 09/13/2016 9:07 AM [facility] CO2 26 22 - 31 mmol/L 09/13/2016 9:07 AM [facility] Calcium 8.6 8.5 - 10.1 mg/dL 09/13/2016 9:07 AM [facility] Anion Gap 5(L) 8 - 16 mmol/L 09/13/2016 9:07 AM [facility] BUN 24(H) 7 - 21 mg/dL 09/13/2016 9:07 AM [facility] Creatinine 1.30 0.50 - 1.30 mg/dL 09/13/2016 9:07 AM [facility] Alkaline Phosphatase 72 38 - 126 U/L 09/13/2016 9:07 AM [facility] ALT 22 13 - 61 U/L 09/13/2016 9:07 AM [facility] AST 16 5 - 40 U/L 09/13/2016 9:07 AM [facility] Protein Total 6.9 6.4 - 8.2 gm/dL 09/13/2016 9:07 AM [facility] Albumin 3.3(L) 3.4 - 5.0 gm/dL 09/13/2016 9:07 AM [facility] Bilirubin Total 0.7 0.2 - 1.0 mg/dL 09/13/2016 9:07 AM [facility] eGFR by MDRD 54 mL/min/1.7 3m2 09/13/2016 9:07 AM [facility] eGFR by MDRD >60 mL/min/1.7 3m2 09/13/2016 9:07 AM [facility] Blood BLOOD SPECIMEN / Unknown 09/13/2016 8:26 AM SENIOR RESEARCH MANAGER 09/13/2016 8:47 AM SENIOR RESEARCH MANAGER Francisco Shankar MD LAB - CHEMISTRY ORD ERABLES [facility] [address] [place] [address] * BLOOD TYPE VERIFICATION (09/13/2016 8:20 AM [facility]) ABO A 09/13/2016 9:39 AM [facility] Rh Type Positive 09/13/2016 9:39 AM [facility] Blood Bank BLOOD SPECIMEN / Unknown 09/13/2016 8:20 AM SENIOR RESEARCH MANAGER 09/13/2016 8:55 AM SENIOR RESEARCH MANAGER Francisco Shankar MD LAB - BLOOD BANK OR DERABLES [facility] [address] * C-REACTIVE PROTEIN (08/10/2016 10:54 AM SENIOR RESEARCH MANAGER) C-Reactive Protein <0.5 <=0.5 mg/dL [facility] Blood specimen (specimen) BLOOD SPECIMEN / Unknown 08/10/2016 10:54 AM SENIOR RESEARCH MANAGER 08/10/2016 11:28 AM SENIOR RESEARCH MANAGER Francisco Shankar MD LAB - CHEMISTRY ORD ERABLES Performing Organization Address [facility] Co de Phone Number [address] [phone] * (ABNORMAL) ERYTHROCYTE SEDIMENTATION RATE (08/10/2016 10:54 AM SENIOR RESEARCH MANAGER) Erythrocyte Sedimentation Rate Westergren 12(H) 0 - 10 MM/HR [facility] Blood specimen (specimen) BLOOD SPECIMEN / Unknown 08/10/2016 10:54 AM SENIOR RESEARCH MANAGER 08/10/2016 11:28 AM SENIOR RESEARCH MANAGER Francisco Shankar MD LAB - HEMATOLOGY OR DERABLES Performing Organization Address [facility] Co de Phone Number [address] [phone] * XR KNEE 4+ VW RIGHT (07/09/2015 9:01 AM SENIOR RESEARCH MANAGER) Anatomical Region Laterality Modality Lower Extremity Radiographic Elena ging 07/09/2015 9:04 AM SENIOR RESEARCH MANAGER Narrative 07/09/2015 9:49 AM SENIOR RESEARCH MANAGER RIGHT KNEE, 4 VIEW HISTORY: Knee pain [...] Shankar MD DIAGNOSTIC IMAGING ORDERABLES Care Teams Surveyor Hydrographic Relationship Specialty Start Date End Date Landon Franklin MD PCP - General Internal Medicine 06/30/15
--- OUTSIDE RECORDS SUMMARY | 2024-10-24 16:34 | XMS_ITS | Clinical Summary ---
Author Organization [facility] Address [address] [place] [address] Care Team Providers Care Gum Remover Name Role Phone Landon Franklin MD Primary Care Provider [phone] Source Comments [facility],non-owned Affiliates and Associated Physician Practices is amultiple site organization consisting of ambulatory clinics and hospital sitesin [place], [place], [place] and [place]. This disclosure is being madepursuant to the Care Everywhere program and may not contain all information available regarding this patient. Last updated 18.[facility] Allergies No known active allergies Medications * [...] meals 30 Tab 09/26/2016 Active nystatin (MYCOSTATIN) 428985 UNIT/GM powder Apply to affected area 3 [...] Comments Blood Pressure 118/75 09/26/2016 12:33 PM CHEERLEADING COACH Pulse 83 09/26/2016 12:33 PM CHEERLEADING COACH Temperature 36.6 C (97.9 F) 09/26/2016 12:33 PM CHEERLEADING COACH Respiratory Rate 18 09/26/2016 12:33 PM CHEERLEADING COACH Oxygen Saturation 99% 09/26/2016 12:33 PM CHEERLEADING COACH Inhaled Oxygen Concentration - - Weight 81.2 kg (179 lb) 10/26/2016 10:26 AM CHEERLEADING COACH Height 185.4 cm (6' 1 ) 10/26/2016 10:26 AM CHEERLEADING COACH Body Mass Index 23.62 10/26/2016 10:26 AM CHEERLEADING COACH Plan of Treatment Health Maintenance Due Date [...] this topic Medical Devices Implanted Type Area Batt Machine Operator Device Identifier Shelf Expiration Date Model / Serial / Lot Shell Actb 58mm 3 Hl Poly R3 Std Implanted:Qty: 1 on 09/24/2016 by Francisco Shankar MD at [facility] Right: Hip [employer] 06/23/2026 [id number] / / [id number] Acetabular Liner Uhmwpe Implanted:Qty: 1 on 09/24/2016 by Francisco Shankar MD at [facility] Right: Hip [employer] 07/29/2024 [id number] / / [id number] Screw 6.5mm 40mm Sphr Hip Actb Reflc Implanted:Qty: 1 on 09/24/2016 by Francisco Shankar MD at [facility] Right: Hip [employer] 06/06/2025 [id number] / / [id number] Stem Standard With Ti/Eason Implanted:Qty: 1 on 09/24/2016 by Francisco Shankar MD at [facility] Right: Hip [employer] 06/08/2023 [id number] / / [id number] Ceramic Modular Femoral Head Implanted:Qty: 1 on 09/24/2016 by Francisco Shankar MD at [facility] Right: Hip [employer] 07/13/2026 [id number] / / [id number] Cal Uncem Hip All Inclusive Implanted:Qty: 1 on 09/24/2016 by Francisco Shankar MD at [facility] BILL ONLY [employer] H[employer] ALL INCLUSIVE [place]TH / / Advance Directives * Full Code (Latest Code Status on File) Date Activated Date Inactivated Comments 09/24/2016 4:27 PM 09/26/2016 3:16 PM * Full Code Date Activated Date Inactivated Comments 09/24/2016 2:17 PM 09/24/2016 4:27 PM Care Teams Gum Remover Relationship Specialty Start Date End Date Landon Franklin MD PCP - General Internal Medicine 06/30/15
== END 2024-10-24 14:26 | disposition home or self-care (01) ==
LOC: CHSLAB 14:27
PROVIDERS: PCP Internal Medicine; Visit Provider Internal Medicine
DX: U07.1 COVID-19 (principal); R05.9 Cough, unspecified; R91.8 Other nonspecific abnormal finding of lung field
CPT/HCPCS: 36415; 71046; 80053; 85025; 87420; 87634

== ENCOUNTER 2024-12-17 16:18 | Outpatient (CLI) | payer MEDICARE, OTHER, SELFPAY ==
[2024-12-17 16:38] LABS: Hematocrit 37.7 % (37.0-46.0); Hemoglobin 12.2 g/dL (12.4-15.3); Mean Corpuscular HGB Conc 32.4 g/dL (32-36); Mean Corpuscular Hemoglobin 29.9 pg (27.0-31.0); Mean Corpuscular Volume 92.4 fL (78.0-102.0); Mean Platelet Volume 9.5 fl (8.7-11.0); Platelet Count Result 226 K/mm3 (150-420); Red Blood Count 4.08 M/mm3 (4.70-6.10); Red Cell Distribution Width 14.7 % (11.6-14.4); Reticulocyte Percent 1.56 % (0.50-1.50); Reticulocytes Absolute 0.06 M/mm3 (0.02-0.10); White Blood Count 6.5 K/mm3 (4.8-10.8)
[2024-12-17 17:05] LABS: Add Urine Microscopic? NO; Appearance Urine Clear (Clear); Bilirubin Urine Negative (Negative); Blood Urine Trace-intact (Negative); Color Urine Yellow (Yellow); Glucose Urine UA Negative (Negative); Ketones Urine Trace (Negative); Leukocyte Esterase Ur Negative (Negative); Nitrate Urine Negative (Negative); Protein Urine Negative (Negative); Urobilinogen Urine 0.2 mg/dL (0.2-1.0); pH Urine 5.5 (5.0-8.0)
[2024-12-17 17:06] LABS: Alanine Aminotransferase 27 U/L (16-63); Albumin Level 3.3 g/dL (3.4-5.0); Alkaline Phosphatase 97 U/L (46-116); Anion Gap 8 mmol/L (4-12); Aspartate Amino Transferase 19 U/L (15-37); Bilirubin,Total 0.6 mg/dL (0.00-1.00); Blood Urea Nitrogen 32 mg/dL (7-18); Calcium 8.7 mg/dL (8.5-10.1); Carbon Dioxide 26 mmol/L (21-32); Chloride 106 mmol/L (98-108); Cholesterol 164 mg/dL (0-200); Creatine Kinase 52 U/L (39-308); Estimated Glomerular Filt Rate 52; Ferritin 148 ng/mL (26-388); Free T4 Free Thyroxine 0.92 ng/dL (0.76-1.46); Glucose 94 mg/dL (70-99); HDL Direct 72 mg/dL (40-60); Iron 66 ug/dL (65-175); LDL Cholesterol Calculated 83 mg/dL (<130); NT Pro B Type Natriuretic Pept 310 pg/mL (0-450); Osmolality Calculated 296 mOsm/kg (285-295); Potassium 4.9 mmol/L (3.5-5.1); Sodium 140 mmol/L (136-145); Thyroid Stimulating Hormone 2.04 uIU/mL (0.36-3.74); Total Protein 6.7 g/dL (6.4-8.2); Triglycerides 47 mg/dL (0-150)
[2024-12-17 17:07] LABS: Free T3 2.24 pg/mL (2.18-3.98)
--- OUTSIDE RECORDS SUMMARY | 2024-12-17 17:53 | XMS_ITS | Encounter Summary ---
Author Organization [facility] Address Pending sale to [facility] [place] [address] Care Team Providers Care Sole Splitter Name Role Phone Landon Franklin MD Primary Care Provider Nader Burns MD Unavailable Kelsi aHile APRN, MANAGER CHEMICAL-C Unavailable Aleksandr Jeffery MD Unavailable [phone] Remberto Malin MD Unavailable Encounter Details Date Type Department Care Team (Late st Contact Info) Description 09/11/2021 [facility] [address] [place] [address] Kelsi Haile, BETTY, MANAGER CHEMICAL-C [address] [facility] [address] [place] [phone] Social History Tobacco Use Types Packs/Day Years Used Date Smoking Tobacco: Never Smokeless Tobacco: Never Sex and Gender Information Value Date Recorded Sex Assigned at Not on file Legal Sex Male 9:12 AM REGIONAL GUIDE Gender Identity Not on file Sexual Orientation Not on file COVID-19 Exposure Response Date Recorded In the last month, have you been in contact with someone who was confirmed or suspected to have Coronavirus / COVID-19? No / Unsure 08/27/2021 1:55 PM REGIONAL GUIDE documented as of this encounter Plan of Treatment Upcoming Encounters Date Type Department Care Team (Late st Contact Info) Description 08/20/2025 1:00 PM REGIONAL GUIDE Appointment [facility] [address] [place] [address] Kelsi Haile APRN, MANAGER CHEMICAL-C [address] [phone] 08/20/2025 2:00 PM REGIONAL GUIDE Office Visit [facility] [address] [place] [phone] Kelsi Haile APRN, MANAGER CHEMICAL-C [address] [phone] documented as of this encounter Visit Diagnoses Not on filedocumented in this encounter Care Teams Sole Splitter Relationship Specialty Start Date End Date Landon Franklin MD [address] [place] [address] PCP - General INTERNAL MEDICINE 08/07/20 Nader Burns MD [address] [place] [phone] [place] [employer] Attendant CARDIOVASCULAR DISEASE 08/07/20 Klesi Haile APRN, MANAGER CHEMICAL-C [address] [phone] NURSE PRACTITIONER 10/10/23 Aleksandr Jeffery MD [address] [place] [address] Surgeon COLON/RECTAL SURGERY 10/10/23 Remberto Malin MD [address] [place] [address] Consulting Physician INTERVENTIONAL CARDIOLOGY 09/03/24 documented as of this encounter
--- OUTSIDE RECORDS SUMMARY | 2024-12-17 17:53 | XMS_ITS | Encounter Summary ---
Author Organization [facility] Address [address] [place] [address] Care Team Providers Care Geographic Information Systems Manager Name Role Phone Landon Franklin MD Primary Care Provider [phone] Nader Burns MD Unavailable Kelsi Haile APRN, BACK SHOE OPERATOR-C Unavailable [phone] Aleksandr Jeffery MD Unavailable [phone] Remberto Malin MD Unavailable Encounter Details Date Type Department Care Team (Late st Contact Info) Description 03/19/2021 [facility] [address] [place] [address] Nader Burns MD [address] [place] [address] Social History Tobacco Use Types Packs/Day Years Used Date Smoking Tobacco: Never Smokeless Tobacco: Never Sex and Gender Information Value Date Recorded Sex Assigned at Not on file Legal Sex Male 9:12 AM UX INFORMATION ARCHITECT Gender Identity Not on file Sexual Orientation Not on file documented as of this encounter Plan of Treatment Upcoming Encounters Date Type Department Care Team (Late Contact Info) Description 08/20/2025 1:00 PM UX INFORMATION ARCHITECT Appointment [facility] [address] [place] [address] Kelsi Haile, BETTY, BACK SHOE OPERATOR-C [address] [facility] [address] [place] [address] 08/20/2025 2:00 PM UX INFORMATION ARCHITECT Office Visit [facility] [address] [place] [address] Kelsi Haile, REEL SLITTER, BACK SHOE OPERATOR-C [address] [facility] [address] [place] [address] documented as of this encounter Procedures Procedure Name Priority Date/Time Associated Diagnosis Comments CMP (ABSTRACTED LAB) Routine 03/18/2021 CBC (OUTSIDE LAB) Routine 03/18/2021 LIPID PANEL Routine 03/18/2021 documented in this encounter Results * CBC (OUTSIDE LAB) (03/18/2021) WBC 7.4 4.8 - 10.8 HGB 12.6 12.4 - 15.3 HCT 36.7 37.0 - 46.0 PLT 243 150 - 420 RBC 3.97 4.70 - 6.10 03/18/2021 Landon Franklin MD LAB-OUTSIDE/ABSTRACTED Final Result * LIPID PANEL (03/18/2021) Pathologist [facility] CHOLESTEROL 144 0 - 200 HDL 63 40 - 60 TRIGLYCERIDES 33 0 - 150 LDL (CALCULATED) 74 <130 03/18/2021 us Landon Franklin MD LABORATORY Final Result * CMP (ABSTRACTED LAB) (03/18/2021) SODIUM S/P/B 142 136 - 145 POTASSIUM [...] on filedocumented in this encounter Care Teams Geographic Information Systems Manager Relationship Specialty Start Date End Date Landon Franklin MD [address] [place] [address] PCP - General INTERNAL MEDICINE 08/07/20 Nader Burns MD [address] [place] [address] [facility] Phys[facility] CARDIOVASCULAR DISEASE 08/07/20 Kelsi Haile, REEL SLITTER, BACK SHOE OPERATOR-C [address] [facility] [address] [place] [address] NURSE PRACTITIONER 10/10/23 Aleksandr Jeffery MD [address] [place] [address] Surgeon COLON/RECTAL SURGERY 10/10/23 Remberto Malin MD [address] [place] [address] Consulting Physician INTERVENTIONAL CARDIOLOGY 09/03/24 documented as of this encounter
--- OUTSIDE RECORDS SUMMARY | 2024-12-17 17:53 | XMS_ITS | Patient Health Record ---
Author Organization [facility] Address [address] [place], [place] [address] Care Team Providers Care Magnetic Prospecting Supervisor Name Role Phone DENISE GUERRA Unavailable [phone] Ok Franklin Unavailable Unavailable KATHE DOYLE Unavailable [phone] Allergies No Known Allergies Reason For Referral No Information Medications Medication SIG (Take, Route, Frequency, Duration) Notes Start Date End Date Status Aspirin 81 MG 1 tablet Orally Once a day Active Immunizations Vaccine Route Administration Date Status Comme nts Influenza, high dose seasonal Unknown 04/29/2023 Admini stered Vital Signs Height-cm 180.34 cm 01/12/2024 Weight-kg 87.09 kg 01/12/2024 Height 71 in 01/12/2024 Weight 192 lbs 01/12/2024 BMI 26.78 kg/m2 01/12/2024 Encounters Encounter Location Date Provider Diagnosis [address] [id number] 11/15/2024 DENISE GUERRA Tinea unguium B35.1 ; Pain in left foot M79.672 ; Pain in right foot M79.671 ; 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, bilateral legs I70.213 ; Acquired keratosis [keratoderma] palmaris et plantaris L85.1 and Venous insufficiency (chronic) (peripheral) I87.[address] [id number] 01/12/2024 KATHE DOYLE Other hammer toe(s) (acquired), right foot M20.41 ; Tinea unguium B35.1 ; Other hammer toe(s) (acquired), left foot M20.42 ; Pain in right toe(s) M79.674 ; Pain in left toe(s) M79.675 ; Unspecified atherosclerosis of tribal arteries of extremities, bilateral legs I70.203 ; Acquired keratosis [keratoderma] palmaris et plantaris L85.1 ; Pain in right foot M79.671 and Pain in left foot M79.[address] [id number] 04/26/2024 KATHE DOYLE Other hammer toe(s) (acquired), right foot M20.41 ; Tinea unguium B35.1 ; Other hammer toe(s) (acquired), left foot M20.42 ; Pain in right toe(s) M79.674 ; Pain in left toe(s) M79.675 ; Unspecified atherosclerosis of tribal arteries of extremities, bilateral legs I70.203 and Acquired keratosis [keratoderma] palmaris et plantaris L85.[address] [id number] 06/28/2024 KATHE DOYLE Other hammer toe(s) (acquired), right foot M20.41 ; Tinea unguium B35.1 ; Other hammer toe(s) (acquired), left foot M20.42 ; Pain in right toe(s) M79.674 ; Pain in left toe(s) M79.675 ; Unspecified atherosclerosis of tribal arteries of extremities, bilateral legs I70.203 and Acquired keratosis [keratoderma] palmaris et plantaris L85.[address] [id number] 09/13/2024 DENISE GUERRA Tinea unguium B35.1 ; Pain in right foot M79.671 ; Pain in left foot M79.672 ; 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, bilateral legs I70.213 and Acquired keratosis [keratoderma] palmaris et plantaris L85.1 Assessments Encounter Date Diagnosis (ICD Code) Assessment Notes Treatment Notes Treatment Clinical Notes Section Notes 01/12/2024 Tinea unguium (ICD-10 - B35.1) Aseptic [...] Pain in right foot (ICD-10 - M79.671) 11/15/2024 Tinea unguium (ICD-10 - B35.1) Nails 1-5 Bilateral were debrided extensively with nail nippers and emery board, reducing length and girth to pink healthy tissue with any subungual debris and necrotic tissue removed 11/15/2024 Pain in left foot (ICD-10 - M79.672) 11/15/2024 Pain in right foot (ICD-10 - M79.671) 09/13/2024 Pain in left foot (ICD-10 - M79.672) 06/28/2024 Other hammer toe(s) (acquired), left foot (ICD-10 - M20.42) 04/26/2024 Other hammer toe(s) (acquired), left foot (ICD-10 - M20.42) 01/12/2024 Other hammer toe(s) (acquired), left foot (ICD-10 - M20.42) 01/12/2024 Pain in right toe(s) (ICD-10 - M79.674) 04/26/2024 Pain in right toe(s) (ICD-10 - M79.674) 06/28/2024 Pain in right toe(s) (ICD-10 - M79.674) 11/15/2024 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, bilateral legs (ICD-10 - I70.213) 09/13/2024 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, bilateral [...] Pain in left toe(s) (ICD-10 - M79.675) 11/15/2024 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.1) A total of 1 corns or calluses, as described in the note above, were cut and pared utilizing a #15 blade 01/12/2024 Unspecified atherosclerosis of tribal arteries of extremities, bilateral legs (ICD-10 - I70.203) Patient educated on risks and aggravating factors of PVD, including conservative treatment options such as a diet and exercise regimen to aid in slowing progression of vascular disease 04/26/2024 Unspecified atherosclerosis of tribal arteries of extremities, bilateral legs (ICD-10 - I70.203) Patient educated on risks and aggravating factors of PVD, including conservative treatment options such as a diet and exercise regimen to aid in slowing progression of vascular disease 06/28/2024 Unspecified atherosclerosis of tribal arteries of extremities, bilateral legs (ICD-10 - I70.203) Patient educated on risks and aggravating factors of PVD, including conservative treatment options such as a diet and exercise regimen to aid in slowing progression of vascular disease 11/15/2024 Venous insufficiency (chronic) (peripheral) (ICD-10 - I87.2) Edema Recommendations: Advised patient on edema treatment recommendations. Recommendation for periodic elevation of feet and lower legs through the day. Recommend support compression hose. Recommend dietary restrictions salt intake. Followup with family physician for potential diuretic management if needed. 06/28/2024 Acquired keratosis [keratoderma] palmaris et plantaris [...] Plan Of Treatment Next Appt Details Provider Name:NURA FOUNTAIN, 01/17/2025 08:30:00 AM, [address] [place] [address], [place], [place], [id number], Insurance Providers Payer Name Payer Address Payer Phone Subscriber Number Group Number Insured Name Patient Relationship to Insured Coverage Start Date Coverage End Date Medicare Part B [facility] [address] [place] [phone] [id number] Izaiah Hayes Self - patient is the insured [address] [employer] [place] [id number] Izaiah Hayes Self - patient is the insured
--- OUTSIDE RECORDS SUMMARY | 2024-12-17 17:53 | XMS_ITS | Clinical Summary ---
Author Organization [facility] Address [address] [place] [address] Care Team Providers Care Fusion Juncture Grinder Name Role Phone Lanodn Franklin MD Primary Care Provider [phone] Source Comments [facility],non-owned Affiliates and Associated Physician Practices is amultiple site organization consisting of ambulatory clinics and hospital sitesin [place], [place], [place] and [place]. This disclosure is being madepursuant to the Care Everywhere program and may not contain all information available regarding this patient. Last updated 18.[facility] Allergies No known active allergies Medications * Be aware that medications may not be up to date on this document. Alwaysverify current medications with the patient. vitamin D3-cholecalcife rol (CHOLECACIFEROL ) 1000 UNITS tablet Take 2,500 Units by mouth once daily Active oxyCODONE-aceta minophen (PERCOCET) 5-325 MG tabletIndicatio ns:H/O total hip arthroplasty, right Take 1 Tab by mouth every 4 hours as needed for Pain 20 Tab 7 Active aspirin (ASPIRIN) 325 MG tabletIndicatio ns:H/O total hip arthroplasty, right Take 1 Tab by mouth 2 times daily after meals 30 Tab 7 Active nystatin (MYCOSTATIN) 331836 UNIT/GM powder Apply to affected area 3 times daily 1 Bottle 7 Active polyethylene glycol 3350 (MIRALAX) packet Take 17 g by mouth once daily as needed for Constipation 14 Packet 7 Active senna-docusate (SENOKOT-S) 8.6-50 MG tablet Take 2 Tabs by mouth once daily 30 Tab 7 Active tamsulosin (FLOMAX) 0.4 MG capsule Take 1 Cap by mouth at bedtime Take 30 minutes after a meal at the same time each day. 30 Cap 7 Active Benzocaine-Ment hol (THROAT LOZENGE) Take 1 Lozenge by mouth as needed for Sore Throat 15 Lozenge 7 Active Active Problems Problem Noted Date Diagnosed Date Dysuria 09/25/2016 Hypertension 09/24/2016 Post-traumatic osteoarthritis of right hip Social History Tobacco Use Types Packs/Day Years Used Date Smoking Tobacco: Never Alcohol Use Standard Drinks/Week Comments No 0 (1 standard drink = 0.6 oz pur e alcohol) Sex and Gender Information Value Date Recorded Sex Assigned at Not on file Legal Sex Male 1:37 PM WEAVE DEFECT CHARTING CLERK Gender Identity Not on file Sexual Orientation Not on file Last Filed Vital Signs Vital Sign Reading Time Taken Comments Blood Pressure 118/75 09/26/2016 12:33 PM WEAVE DEFECT CHARTING CLERK Pulse 83 09/26/2016 12:33 PM WEAVE DEFECT CHARTING CLERK Temperature 36.6 C (97.9 F) 09/26/2016 12:33 PM WEAVE DEFECT CHARTING CLERK Respiratory Rate 18 09/26/2016 12:33 PM WEAVE DEFECT CHARTING CLERK Oxygen Saturation 99% 09/26/2016 12:33 PM WEAVE DEFECT CHARTING CLERK Inhaled Oxygen Concentration - - Weight 81.2 kg (179 lb) 10/26/2016 10:26 AM WEAVE DEFECT CHARTING CLERK Height 185.4 cm (6' 1 ) 10/26/2016 10:26 AM WEAVE DEFECT CHARTING CLERK Body Mass Index 23.62 10/26/2016 10:26 AM WEAVE DEFECT CHARTING CLERK Plan of Treatment Health Maintenance Due Date Last Done Comments DTAP/TDAP/TD VACCINES (1 - Tdap) 1962 PNEUMOCOCCAL VACCINE 50+ (1 of 1 - PCV) 1993 ZOSTER VACCINE (1 of 2) 1993 Respiratory Syncytial Virus (RSV) Vaccine Pt: or over 60 yrs (1 - 1-dose 75+ series) 2018 COVID-19 VACCINE ( - 2023-2 5 season) 2024 DEPRESSION SCREENING 08/29/2024 INFLUENZA VACCINE (Season Ended) 2025 HEPATITIS B VACCINE Aged Out No longe r eligible based on patient's age to complete this topic HIB VACCINE Aged Out No longer eligi ble based on patient's age to complete this topic HPV VACCINE Aged Out No longer eligi ble based on patient's age to complete this topic MENINGOCOCCAL (Group B) VACC INE SHARED DECISION-MAKING Aged Out No longer eligibl e based on patient's age to complete this topic MENINGOCOCCAL GROUPS A/C/Y/W VACCINE Aged Out No longer eligible b ased on patient's age to complete this topic Medical Devices Implanted Type Area Bunch Breaker Device Identifier Shelf Expiration Date Model / Serial / Lot Shell Actb 58mm 3 Hl Poly R3 Std Implanted:Qty: 1 on 09/24/2016 by Francisco Shankar MD at [facility] Right: Hip [employer] 06/23/2026 [id number] / / [id number] Acetabular Liner Uhmwpe Implanted:Qty: 1 on 09/24/2016 by Francisco Shankar MD at [facility] Right: Hip [employer] 07/29/2024 [id number] / / [id number] Screw 6.5mm 40mm Sphr Hip Actb Reflc Implanted:Qty: 1 on 09/24/2016 by Francisco Shankar MD at [facility] Right: Hip [employer] 06/06/2025 [id number] / / [id number] Stem Standard With Ti/Eason Implanted:Qty: 1 on 09/24/2016 by Francisco Shankar MD at [facility] Right: Hip [employer] 06/08/2023 [id number] / / [id number] Ceramic Modular Femoral Head Implanted:Qty: 1 on 09/24/2016 by Francisco Shankar MD at [facility] Right: Hip [employer] 07/13/2026 [id number] / / [id number] Cal Uncem Hip All Inclusive Implanted:Qty: 1 on 09/24/2016 by Francisco Shankar MD at [facility] [employer] BILL ONLY [employer] HIP ALL INCLUSIVE SNORTH / / Insurance MEDICARE COUNT INCLUDES THE [facility] GENERIC MEDICARE Advance Directives * Full Code (Latest Code Status on File) Date Activated Date Inactivated Comments 09/24/2016 4:27 PM 09/26/2016 3:16 PM * Full Code Date Activated Date Inactivated Comments 09/24/2016 2:17 PM 09/24/2016 4:27 PM Care Teams Fusion Juncture Grinder Relationship Specialty Start Date End Date Landon Franklin MD PCP - General Internal Medicine 06/30/15
--- OUTSIDE RECORDS SUMMARY | 2024-12-17 17:53 | XMS_ITS ---
Author Organization [facility] Address [address] [place], [place] [address] Care Team Providers Care Senior Windows Systems Administrator Name Role Phone SHELLYKeyana DENISE Unavailable [phone] Ok Franklin Unavailable Unavailable Allergies No Known Allergies REASON FOR VISIT Patient presents for at-risk foot care . The patient has painful toenails and calluses that are causing difficulty with ambulation and shoegear. The onset is gradual Medications Medication SIG (Take, Route, Frequency, Duration) Notes Start Date End Date Status Aspirin 81 MG 1 tablet Orally Once a day Active Encounters Encounter Location Date Provider Diagnosis [address] [id number] 11/15/2024 DENISE GUERRA Tinea unguium B35.1 ; Pain in left foot M79.672 ; Pain in right foot M79.671 ; Atherosclerosis of [place] arteries of extremities with intermittent claudication, bilateral legs I70.213 ; Acquired keratosis [keratoderma] palmaris et plantaris L85.1 and Venous insufficiency (chronic) (peripheral) I87.2 Assessments Encounter Date Diagnosis (ICD Code) Assessment Notes Treatment Notes Treatment Clinical Notes Section Notes 11/15/2024 Tinea unguium (ICD-10 - B35.1) Nails 1-5 Bilateral were debrided extensively with nail nippers and emery board, reducing length and girth to pink healthy tissue with any subungual debris and necrotic tissue removed 11/15/2024 Pain in left foot (ICD-10 - M79.672) 11/15/2024 Pain in right foot (ICD-10 - M79.671) 11/15/2024 Atherosclerosis of ass[place] tribes arteries of extremities with intermittent claudication, bilateral legs (ICD-10 - I70.213) 11/15/2024 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.1) A total of 1 corns or calluses, as described in the note above, were cut and pared utilizing a #15 blade 11/15/2024 Venous insufficiency (chronic) (peripheral) (ICD-10 - I87.2) Edema Recommendations: Advised patient on edema treatment recommendations. Recommendation for periodic elevation of feet and lower legs through the day. Recommend support compression hose. Recommend dietary restrictions salt intake. Followup with family physician for potential diuretic management if needed. Plan Of Treatment Treatment Notes Assessment Notes [...] cut and pared utilizing a #15 blade Venous insufficiency (chronic) (peripher al) Edema Recommendations: Advised patient on edema treatment recommendations. Recommendation for periodic elevation of feet and lower legs through the day. Recommend support compression hose. Recommend dietary restrictions salt intake. Followup with family physician for potential diuretic management if needed. Next Appt Details Follow Up: 10 - 12 weeks, Re ason: At-Risk Foot care, sooner if problems develop. Provider Name:NURA FOUNTAIN, 01/17/2025 08:30:00 AM, [address] [place] [address], [id number], Progress Notes * Izaiah HAYESDOB:1945 ( 79 yo M)Acc No.[id number]:11/15/2024 Patient: Izaiah ALBRIGHT Provider: Mavis Guerra DPM :1945 A ge:79 Y S ex:Male Date:11/15/2024 [address] [facility] Subjective: * Chief Complaints: * 1 . Patient presents for at-risk foot care . The patient has painful toenails and calluses that are causing difficulty with ambulation and shoegear. The onset is gradual. * HPI: H PI: General care P basil presents to the office for at risk foot care. Patient states that their nails are thickened, elongated and painful. Patient states that it is aggravated by shoe gear. Onset is gradual. Patient denies being diabetic., Patient denies taking prescription blood thinners but does take a daily aspirin., Date last seen by Dr. Franklin was 10/2024., Initials mca. * Medical History: M edical History Verified. * Medications: T radhag Aspirin 81 MG Tablet Chewable 1 tablet Orally Once a day , Medication List reviewed and reconciled with the patient * Allergies: N .K.D.A. Objective: * Vitals: * Examination: P hysical [...] refill: g reater than 3 seconds. Edema: m ild to moderate edema bilateral, left greater than right. N eurologic: Gross sensation G rossly intact to light touch. There is negative Tinel's sign. M usculoskeletal: Muscle Strength M uscle strength is 5/5 in regards to dorsiflexion, plantarflexion, inversion, and eversion in bilateral lower extremities. ? Assessment: * Assessment: 1. T inea unguium - B35.1 (Primary) 2 . P ain in left foot - M79.672 ? 3 . P ain in right foot - M79.671 4 . A therosclerosis of assin[place] and [place] tribes arteries of extremities with intermittent claudication, bilateral legs - I70.213 5 . Acquired keratosis [keratoderma] palmaris et plantaris - L85.1 6 . V enous insufficiency (chronic) (peripheral) - I87.2 Plan: * Treatment: 2. A cquired keratosis [keratoderma] palmaris et plantaris Notes: A total of 1 corns or calluses, as described in the note above, were cut and pared utilizing a #15 blade 3. V enous insufficiency (chronic) (peripheral) Notes: Edema Recommendations: Advised patient on edema treatment recommendations. Recommendation for periodic elevation of feet and lower legs through the day. Recommend support compression hose. Recommend dietary restrictions salt intake. Followup with family physician for potential diuretic management if needed. * Immunizations: Immunization record has been reviewed and updated. * Procedure Codes: 1 1055 TRIM SKIN LESION, Modifiers: Q8 , 51135 DEBRIDE NAIL, 6 OR MORE, Modifiers: 59 , Q8 * Follow Up: 1 0 - 12 weeks (Reason: At-Risk Foot care, sooner if problems develop.) * Billing Information: * Visit Code: * Procedure Codes: 78764 TRIM SKIN LESION. Modifiers: Q8 76528 DEBRIDE NAIL, 6 OR MORE. Modifiers: 59, Q8 * Electronic signature of DENSIE GUERRA DPM on 12/17/2024 at 05:53 PM CDT Sign off status: Pending * Provider: Mavis Guerra DPM Date: 0 11/15/2024 Generated for Kaylee steinberg/Tristen/Dale on: 0 12/17/2024 05:53 PM CDT History and Physical Notes * HPI (History [...] Date last seen by Dr. Franklin was 10/2024., Initials mca Examination Category Sub-Category Detail Notes [...] Vascular Dorsalis pedis pulse: 1/4 bilateral Edema: mild to moderate everette ma bilateral, left greater than right Capillary refill: greater than 3 secon ds Posterior tibial pulse: 0/4 bilateral Physical Examination General appearance: Alert, pleasant, well-nourished and in no acute distress Musculoskeletal Muscle Strength Muscle strength is 5/5 in regards to dorsiflexion, plantarflexion, inversion, and eversion in bilateral lower extremities
--- OUTSIDE RECORDS SUMMARY | 2024-12-17 17:54 | XMS_ITS ---
Author Organization [facility] Address [address] [place], [place] [address] Care Team Providers Care Rolling Up Machine Operator Name Role Phone NAI DENISE Unavailable [phone] Ok Franklin Unavailable Unavailable KATHE DOYLE Unavailable [phone] REASON FOR VISIT *General care Encounters Encounter Location Date Provider Diagnosis [address] [id number] 09/06/2024 KAHTE DOYLE Plan Of Treatment Next Appt Details Provider Name:NURA FOUNTAIN, 01/17/2025 08:30:00 AM, [address] [place] [address], [id number], Progress Notes * Izaiah DE DIOSDOB:1945 ( 79 yo M)Acc No.[id number]:09/06/2024 Patient: Izaiah ALBRIGHT Provider: Elias DOYLE :1945 A ge:79 Y S ex:Male Date:09/06/2024 [address] [place] Subjective: * Chief Complaints: * 1 . *General care. * Medical History: Objective: * Vitals: Assessment: Plan: * Treatment: * Billing Information: * Visit Code: * Procedure Codes: * Electronic signature of SHILA DOYLE DPM on 12/17/2024 at 05:54 PM CDT Sign off status: Pending * Provider: Elias DOYLE Date: 0 09/06/2024 Generated for Kaylee steinberg/Faxing/eTransmitting on: 0 12/17/2024 05:54 PM CDT
--- OUTSIDE RECORDS SUMMARY | 2024-12-17 17:54 | XMS_ITS | Clinical Summary ---
Author Organization [facility] Address [address] [place] [address] Care Team Providers Care Dry House Attendant Name Role Phone Landon Franklin MD Primary Care Provider [phone] Nader Burns MD Unavailable [phone] Kelsi Haile APRN HARNESS RACING HANDICAPPER-C Unavailable Aleksandr Jeffery MD Unavailable [phone] Remberto Malin MD Unavailable Allergies No known active allergies Medications aspirin [...] Type Department Care Team Description 09/20/2024 Abstract [facility] [address] [place] [address] Abstract, Doc Pccl from Last 3 Months Family History Medical [...] on file Legal Sex Male 9:12 AM WIRE INSPECTOR Gender Identity Not on file Sexual Orientation Not on file Last Filed Vital Signs Vital Sign Reading Time Taken Comments Blood Pressure 134/78 08/31/2024 2:30 PM WIRE INSPECTOR Pulse 64 08/31/2024 1:36 PM WIRE INSPECTOR EKG Temperature - - Respiratory Rate 18 08/31/2024 1:36 PM WIRE INSPECTOR Oxygen Saturation 95% 08/31/2024 1:36 PM WIRE INSPECTOR Inhaled Oxygen Concentration - - Weight 88.4 kg (194 lb 12.8 oz) 08/31/2024 1:36 PM WIRE INSPECTOR Height 185.4 cm (6' 1 ) 08/31/2024 1:36 PM WIRE INSPECTOR Body Mass Index 25.7 08/31/2024 1:36 PM WIRE INSPECTOR Plan of Treatment Upcoming Encounters Date Type Department Care Team (Late st Contact Info) Description 08/20/2025 1:00 PM WIRE INSPECTOR Appointment [facility] Vascular Ultrasound - [facility] [address] [place] [address] Kelsi Haile APRN, HARNESS RACING HANDICAPPER-C [address] [facility] [address] [place] [address] 08/20/2025 2:00 PM WIRE INSPECTOR Office Visit [facility] el [address] [place] [address] Kelsi Haile APRN, HARNESS RACING HANDICAPPER-C [address] [facility] [address] [place] [address] Health Maintenance Due Date Last Done Comments DTaP, Tdap and Td Vaccines ( 1 - Tdap) 1962 Zoster Vaccines (1 of 2) 1993 Annual Medicare Wellness Visit 2008 RSV Immunization or 60+ Years (1 - 1-dose 75+ series) 2018 Pneumococcal Vaccine: 50+ Ye ars (2 of 2 - PPSV23) 07/28/2021 07/28/2020 COVID-19 Vaccine (1 - 2023-2 5 season) 2024 Meningococcal B Vaccine Aged Out No l onger eligible based on patient's age to complete this topic Meningococcal Vaccine Aged Out No foster julee eligible based on patient's age to complete this topic RSV Immunizations Under 20 Months Aged Out No longer eligible based on patient's age to complete this topic Insurance MEDICARE [facility] Care Teams Dry House Attendant Relationship Specialty Start Date End Date Landon Franklin MD [address] [place] [address] PCP - General INTERNAL MEDICINE 08/07/20 Nader Burns MD [address] [place] [address] [place] Biology Instructor CARDIOVASCULAR DISEASE 08/07/20 Kelsi Haile, SIGN ARTIST, HARNESS RACING HANDICAPPER-C [address] [facility] [address] [place] [address] NURSE PRACTITIONER 10/10/23 Aleksandr Jeffery MD [address] [place] [address] Surgeon COLON/RECTAL SURGERY 10/10/23 Remberto Malin MD [address] [place] [address] Consulting Physician INTERVENTIONAL CARDIOLOGY 09/03/24
--- OUTSIDE RECORDS SUMMARY | 2024-12-17 17:54 | XMS_ITS ---
Author Organization [facility] Address [address] [place], [place] [address] Care Team Providers Care Mechanical Facilities Technician Name Role Phone SHELLYKeyana DENISE Unavailable [phone] Ok Franklin Unavailable Unavailable Allergies No Known Allergies REASON FOR VISIT Patient presents for at-risk foot care . The patient has painful toenails and calluses that are causing difficulty with ambulation and shoegear. The onset is gradual Encounters Encounter Location Date Provider Diagnosis [place] [address] [place], [place] [id number] 09/13/2024 DENISE GUERRA Tinea unguium B35.1 ; Pain in right foot M79.671 ; Pain in left foot M79.672 ; Atherosclerosis of [place] arteries of extremities with intermittent claudication, bilateral [...] foot (ICD-10 - M79.672) 09/13/[address] [place] arteries of extremities with intermittent claudication, bilateral [...] develop. Provider Name:NURA FOUNTAIN, 01/17/2025 08:30:00 AM, [address] [place] [address], [id number], Progress Notes * Izaiah HAYESDOB:1945 ( 79 yo M)Acc No.[id number]:09/13/2024 Patient: Izaiah ALBRIGHT Provider: Mavis Guerra DPM :1945 A ge:79 Y S ex:Male Date:09/13/2024 Address:[address] [place], [place] [id number] Subjective: * Chief Complaints: * Helder gracia [...] - M79.672 4 . A therosclerosis of [place] arteries of extremities with intermittent claudication, bilateral legs - I70.213 5 . Acquired keratosis [keratoderma] palmaris et plantaris - L85.1 Plan: * Treatment: 2. A cquired keratosis [keratoderma] palmaris et plantaris Notes: A total of 1 corns or calluses, as described in the note above, were cut and pared utilizing a #15 blade * Procedure Codes: 1 1055 TRIM SKIN LESION, Modifiers: Q8 07429 DEBRIDE NAIL, 6 OR MORE, Modifiers: 59 , Q8 * Follow Up: 1 0 - 12 weeks (Reason: At-Risk Foot care, sooner if problems develop.) * Billing Information: * Visit Code: * Procedure Codes: 98157 TRIM SKIN LESION. Modifiers: Q8 74949 DEBRIDE NAIL, 6 OR MORE. Modifiers: 59, Q8 * ER CUTTER Sign off status: Completed true * Provider: Mavis Guerra DPM Date: 0 09/13/2024 Generated for Kaylee steinberg/Tristen/eTransmitting on: 0 12/17/2024 05:53 PM CDT History [...]
== END 2024-12-17 16:19 | disposition home or self-care (01) ==
PROVIDERS: PCP Internal Medicine; Visit Provider Internal Medicine
DX: E78.00 Pure hypercholesterolemia, unspecified (principal); I10 Essential (primary) hypertension; D64.9 Anemia, unspecified; R60.0 Localized edema; R06.00 Dyspnea, unspecified
CPT/HCPCS: 36415; 80053; 80061; 81003; 82550; 82728; 83540; 83880; 84439; 84443; 84481; 85027; 85046; 85380

== ENCOUNTER 2024-12-25 10:28 | Outpatient (CLI) | payer MEDICARE, OTHER, SELFPAY ==
--- NOTE | ~2024-12-25 | US_ITS ---
EXAMINATION: US venous doppler [facility] DATE: 12/25/2024 11:04 INDICATION: Bilateral lower limb swelling TECHNIQUE: Grayscale ultrasound images without and with compression and Doppler ultrasound images of the bilateral lower extremity veins were obtained. COMPARISON: None. FINDINGS: The visualized portions of right common femoral vein, profunda (deep) femoral vein, femoral vein, pop liteal vein, posterior tibial veins, peroneal veins, gastrocnemius vein and greater saphenous vein ou tflow are patent. The visualized portions of left common femoral vein, profunda femoral vein, femoral vein, popliteal v ein, posterior tibial veins, peroneal veins, gastrocnemius vein and greater saphenous vein outflow ar e patent. IMPRESSION: 1. No deep venous thrombosis in either lower limb. Reviewed, dictated and finalized at location B.
--- OUTSIDE RECORDS SUMMARY | 2024-12-25 11:41 | XMS_ITS ---
Author Organization [facility] Address [address] [place], [place] [address] Care Team Providers Care Veneer Sander Name Role Phone SHELLYKeyana DENISE Unavailable [phone] Ok Franklin Unavailable Unavailable Allergies No Known Allergies REASON FOR VISIT Patient presents for at-risk foot care . The patient has painful toenails and calluses that are causing difficulty with ambulation and shoegear. The onset is gradual Encounters Encounter Location Date Provider Diagnosis [place] [address] [place], [place] [phone] 09/13/2024 DENISE GUERRA Tinea unguium B35.1 ; Pain in right foot M79.671 ; Pain in left foot M79.672 ; Atherosclerosis of [place] arteries of extremities with intermittent claudication, bilateral [...] foot (ICD-10 - M79.672) 09/13/2024 Atherosclerosis of [place] arteries of extremities with intermittent claudication, bilateral [...] develop. Provider Name:NURA FOUNTAIN, 01/17/2025 08:30:00 AM, [address] [place] [address], [id number], Progress Notes * Izaiah HAYESDOB:1945 ( 79 yo M)Acc No.[id number]:09/13/2024 Patient: Izaiah ALBRIGHT Provider: Mavis Guerra DPM :1945 A ge:79 Y S ex:Male Date:09/13/2024 Address:[address] [place], [place] [id number] Subjective: * Chief Complaints: * Helder gracia [...] - M79.672 4 . A therosclerosis of [place] arteries of extremities with intermittent claudication, bilateral legs - I70.213 5 . Acquired keratosis [keratoderma] palmaris et plantaris - L85.1 Plan: * Treatment: 2. A cquired keratosis [keratoderma] palmaris et plantaris Notes: A total of 1 corns or calluses, as described in the note above, were cut and pared utilizing a #15 blade * Procedure Codes: 1 1055 TRIM SKIN LESION, Modifiers: Q8 78509 DEBRIDE NAIL, 6 OR MORE, Modifiers: 59 , Q8 * Follow Up: 1 0 - 12 weeks (Reason: At-Risk Foot care, sooner if problems develop.) * Billing Information: * Visit Code: * Procedure Codes: 53771 TRIM SKIN LESION. Modifiers: Q8 84351 DEBRIDE NAIL, 6 OR MORE. Modifiers: 59, Q8 * NG CAR DRIVER Sign off status: Completed true * Provider: Mavis Guerra DPM Date: 0 09/13/2024 Generated for Kaylee steinberg/Tristen/eTransmitting on: 0 12/25/2024 11:41 AM CDT History and Physical Notes * HPI [...]
--- OUTSIDE RECORDS SUMMARY | 2024-12-25 11:41 | XMS_ITS ---
Author Organization [facility] Address [address] [place], [place] [address] Care Team Providers Care Sommelier Name Role Phone SHELLYKeyana DENISE Unavailable [phone] Ok Franklin Unavailable Unavailable Allergies No Known [...] Active Encounters Encounter Location Date Provider Diagnosis [address] [id number] 11/15/2024 DENISE GUERRA Tinea unguium B35.1 ; Pain in left foot M79.672 ; Pain in right foot M79.671 ; Atherosclerosis of [place] arteries of extremities with intermittent claudication, bilateral [...] foot (ICD-10 - M79.671) 11/15/2024 Atherosclerosis of [place] arteries of extremities with intermittent claudication, bilateral [...] develop. Provider Name:NURA FOUNTAIN, 01/17/2025 08:30:00 AM, [address] [place] [address], [id number], Progress Notes * Izaiah HAYESDOB:1945 ( 79 yo M)Acc No.[id number]:11/15/2024 Patient: Izaiah ALBRIGHT Provider: Mavis Guerra DPM :1945 A ge:79 Y S ex:Male Date:11/15/2024 Address:[id number] Subjective: * Chief Complaints: * 1 . [...] - M79.671 4 . A therosclerosis of [place] arteries of extremities with intermittent claudication, bilateral [...] 1055 TRIM SKIN LESION, Modifiers: Q8 , 25963 DEBRIDE NAIL, 6 OR MORE, Modifiers: 59 , Q8 * Follow Up: 1 0 - 12 weeks (Reason: At-Risk Foot care, sooner if problems develop.) * Billing Information: * Visit Code: * Procedure Codes: 70158 TRIM SKIN LESION. Modifiers: Q8 82396 DEBRIDE NAIL, 6 OR MORE. Modifiers: 59, Q8 * Electronic signature of DENISE GUERRA DPM on 12/25/2024 at 11:41 AM CDT Sign off status: Pending * Provider: Mavis Guerra DPM Date: 0 11/15/2024 Generated for Kaylee steinberg/Tristen/Dale on: 0 12/25/2024 11:41 AM CDT History [...]
--- OUTSIDE RECORDS SUMMARY | 2024-12-25 11:41 | XMS_ITS | Clinical Summary ---
Author Organization [facility] Address [address] [place] [address] Care Team Providers Care Globe Changer Name Role Phone Landon Franklin MD Primary Care Provider [phone] Source Comments [facility],non-owned Affiliates and Associated Physician Practices is amultiple site organization consisting of ambulatory clinics and hospital sitesin [place], [place] and [place]. This disclosure is being madepursuant to the Care Everywhere program and may not contain all information available regarding this patient. Last updated 18.[facility] Allergies No known active allergies Medications * [...] meals 30 Tab 7 Active nystatin (MYCOSTATIN) 610237 UNIT/GM powder Apply to affected area 3 [...] on file Legal Sex Male 1:37 PM DISSOLVER OPERATOR Gender Identity Not on file Sexual Orientation Not on file Last Filed Vital Signs Vital Sign Reading Time Taken Comments Blood Pressure 118/75 09/26/2016 12:33 PM DISSOLVER OPERATOR Pulse 83 09/26/2016 12:33 PM DISSOLVER OPERATOR Temperature 36.6 C (97.9 F) 09/26/2016 12:33 PM DISSOLVER OPERATOR Respiratory Rate 18 09/26/2016 12:33 PM DISSOLVER OPERATOR Oxygen Saturation 99% 09/26/2016 12:33 PM DISSOLVER OPERATOR Inhaled Oxygen Concentration - - Weight 81.2 kg (179 lb) 10/26/2016 10:26 AM DISSOLVER OPERATOR Height 185.4 cm (6' 1 ) 10/26/2016 10:26 AM DISSOLVER OPERATOR Body Mass Index 23.62 10/26/2016 10:26 AM DISSOLVER OPERATOR Plan of Treatment Health Maintenance Due Date [...] this topic Medical Devices Implanted Type Area Conference Center Coordinator Device Identifier Shelf Expiration Date Model / Serial / Lot Shell Actb 58mm 3 Hl Poly R3 Std Implanted:Qty: 1 on 09/24/2016 by Francisco Shankar MD at [facility] Right: Hip [employer] 06/23/2026 [id number] / / [id number] Acetabular Liner Uhmwpe Implanted:Qty: 1 on 09/24/2016 by Francisco Shankar MD at [facility] Right: Hip [employer] 07/29/2024 [id number] / / [id number] Screw 6.5mm 40mm Sphr Hip Actb Reflc Implanted:Qty: 1 on 09/24/2016 by Francisco Shankar MD at [facility] Right: Hip [employer] 06/06/2025 [id number] / / [id number] Stem Standard With Ti/Eason Implanted:Qty: 1 on 09/24/2016 by Francisco Shankar MD at [facility] Right: Hip [employer] 06/08/2023 [id number] / / [id number] Ceramic Modular Femoral Head Implanted:Qty: 1 on 09/24/2016 by Francisco Shankar MD at [facility] Right: Hip [employer] 07/13/2026 [id number] / / [id number] Cal Uncem Hip All Inclusive Implanted:Qty: 1 on 09/24/2016 by Francisco Shankar MD at [facility] [employer] BILL ONLY [employer] HIP ALL INCLUSIVE [place] / / Insurance MEDICARE [facility] Care Address: [facility] [address] [place] [address] [facility] COMMERCIAL GENERIC MEDICARE Advance Directives * Full Code (Latest Code Status on File) Date Activated Date Inactivated Comments 09/24/2016 4:27 PM 09/26/2016 3:16 PM * Full Code Date Activated Date Inactivated Comments 09/24/2016 2:17 PM 09/24/2016 4:27 PM Care Teams Globe Changer Relationship Specialty Start Date End Date Landon Franklin MD PCP - General Internal Medicine 06/30/15
--- OUTSIDE RECORDS SUMMARY | 2024-12-25 11:41 | XMS_ITS | Encounter Summary ---
Author Organization [facility] Address [facility]ly [facility], [address] [place] [address] Care Team Providers Care Mechanism Inspector Name Role Phone Landon Franklin MD Primary Care Provider Nader Burns MD Unavailable Kelsi Haile APRN, CONTACT CENTER ENGINEER-C Unavailable Aleksandr Jeffery MD Unavailable [phone] Remberto Malin MD Unavailable [phone] Encounter Details Date Type Department Care Team (Late st Contact Info) Description 09/11/2021 [facility] [address] [place] [address] Kelsi Haile, BETTY, CONTACT CENTER ENGINEER-C [address] [facility] [address] [place] [address] Social History Tobacco Use Types Packs/Day Years Used Date Smoking Tobacco: Never Smokeless Tobacco: Never Sex and Gender Information Value Date Recorded Sex Assigned at Not on file Legal Sex Male 9:12 AM SIDE SEAM MACHINE OPERATOR Gender Identity Not on file Sexual Orientation Not on file COVID-19 Exposure Response Date Recorded In the last month, have you been in contact with someone who was confirmed or suspected to have Coronavirus / COVID-19? No / Unsure 08/27/2021 1:55 PM SIDE SEAM MACHINE OPERATOR documented as of this encounter Plan of Treatment Upcoming Encounters Date Type Department Care Team (Late st Contact Info) Description 08/20/2025 1:00 PM SIDE SEAM MACHINE OPERATOR Appointment [facility] - [facility] [address] [place] [address] Kelsi Haile APRN, CONTACT CENTER ENGINEER-C [address] [phone] 08/20/2025 2:00 PM SIDE SEAM MACHINE OPERATOR Office Visit [facility] el [address] [place] [address] Kelsi Haile APRN, CONTACT CENTER ENGINEER-C [address] [phone] documented as of this encounter Visit Diagnoses Not on filedocumented in this encounter Care Teams Mechanism Inspector Relationship Specialty Start Date End Date Landon Franklin MD [address] [place] [address] PCP - General INTERNAL MEDICINE 08/07/20 Nader Burns MD [address] [place] [address] [place] Senior Product Marketing Manager CARDIOVASCULAR DISEASE 08/07/20 Kelsi Haile APRN, CONTACT CENTER ENGINEER-C [address] [phone] NURSE PRACTITIONER 10/10/23 Aleksandr Jeffery MD [address] [place] [address] Surgeon COLON/RECTAL SURGERY 10/10/23 Remberto Malin MD [address] [place] [address] Consulting Physician INTERVENTIONAL CARDIOLOGY 09/03/24 documented as of this encounter
--- OUTSIDE RECORDS SUMMARY | 2024-12-25 11:41 | XMS_ITS | Encounter Summary ---
Author Organization [facility] Address [address] [place] [address] Care Team Providers Care Box Finisher Name Role Phone Landon Franklin MD Primary Care Provider Nader Burns MD Unavailable Kelsi Haile APRN, PIE FILLER-C Unavailable Aleksandr Jeffery MD Unavailable [phone] Remberto Malin MD Unavailable Encounter Details Date Type Department Care Team (Late st Contact Info) Description 03/19/2021 Abstract [facility] [address] [place] [address] Nader Burns MD [address] [place] [address] Social History Tobacco Use Types Packs/Day Years Used Date Smoking Tobacco: Never Smokeless Tobacco: Never Sex and Gender Information Value Date Recorded Sex Assigned at Not on file Legal Sex Male 9:12 AM MOTOR COACH SUPERVISOR Gender Identity Not on file Sexual Orientation Not on file documented as of this encounter Plan of Treatment Upcoming Encounters Date Type Department Care Team (Late Contact Info) Description 08/20/2025 1:00 PM MOTOR COACH SUPERVISOR Appointment [facility] - [facility] [address] [place] [address] Kelsi Haile, BETTY, PIE FILLER-C [address] [facility]] [address] [place] [address] 08/20/2025 2:00 PM MOTOR COACH SUPERVISOR Office Visit [facility] eld [address] [place] [address] Kelsi Haile, PHARMACEUTICAL COMPOUNDING SUPERVISOR, PIE FILLER-C [address] [facility]1] [address] [place] [address] documented as of this encounter [...] Final Result * LIPID PANEL (03/18/2021) Pathologist [facility] CHOLESTEROL 144 0 - 200 HDL 63 [...] on filedocumented in this encounter Care Teams Box Finisher Relationship Specialty Start Date End Date Landon Franklin MD [address] [place] [address] PCP - General INTERNAL MEDICINE 08/07/20 Nader Burns MD [address] [place] [address] [facility] Pickle Sorter CARDIOVASCULAR DISEASE 08/07/20 Kelsi Haile, PHARMACEUTICAL COMPOUNDING SUPERVISOR, PIE FILLER-C [address] [facility] [place] [address] NURSE PRACTITIONER 10/10/23 Aleksandr Jeffery MD [address] [place] [address] Surgeon COLON/RECTAL SURGERY 10/10/23 Remberto Malin MD [address] [place] [address] Consulting Physician INTERVENTIONAL CARDIOLOGY 09/03/24 documented as of this encounter
--- OUTSIDE RECORDS SUMMARY | 2024-12-25 11:41 | XMS_ITS | Patient Health Record ---
Author Organization [facility] Address [address] [place], [place] [address] Care Team Providers Care Foundry Superintendant Name Role Phone DENISE GUERRA Unavailable [phone] Ok Franklin Unavailable Unavailable KATHE DOYLE Unavailable [phone] Allergies No Known Allergies Reason For Referral [...] 01/12/2024 Encounters Encounter Location Date Provider Diagnosis [address] [id number] 11/15/2024 DENISE GUERRA Tinea unguium B35.1 ; Pain in left foot M79.672 ; Pain in right foot M79.671 ; Atherosclerosis of [place] arteries of extremities with intermittent claudication, bilateral legs I70.213 ; Acquired keratosis [keratoderma] palmaris et plantaris L85.1 and Venous insufficiency (chronic) (peripheral) I87.[address] [id number] 01/12/2024 KATHE DOYLE Other hammer toe(s) (acquired), right foot M20.41 ; Tinea unguium B35.1 ; Other hammer toe(s) (acquired), left foot M20.42 ; Pain in right toe(s) M79.674 ; Pain in left toe(s) M79.675 ; Unspecified atherosclerosis of [place] arteries of extremities, bilateral legs I70.203 ; Acquired keratosis [keratoderma] palmaris et plantaris L85.1 ; Pain in right foot M79.671 and Pain in left foot M79.[address] [id number] 04/26/2024 KATHE DOYLE Other hammer toe(s) (acquired), right foot M20.41 ; Tinea unguium B35.1 ; Other hammer toe(s) (acquired), left foot M20.42 ; Pain in right toe(s) M79.674 ; Pain in left toe(s) M79.675 ; Unspecified atherosclerosis of [place] arteries of extremities, bilateral legs I70.203 and Acquired keratosis [keratoderma] palmaris et plantaris L85.[address] [id number] 06/28/2024 KATHE DOYLE Other hammer toe(s) (acquired), right foot M20.41 ; Tinea unguium B35.1 ; Other hammer toe(s) (acquired), left foot M20.42 ; Pain in right toe(s) M79.674 ; Pain in left toe(s) M79.675 ; Unspecified atherosclerosis of [place] arteries of extremities, bilateral legs I70.203 and Acquired keratosis [keratoderma] palmaris et plantaris L85.[address] [id number] 09/13/2024 DENISE GUERRA Tinea unguium B35.1 ; Pain in right foot M79.671 ; Pain in left foot M79.672 ; Atherosclerosis of [place] arteries of extremities with intermittent claudication, bilateral [...] toe(s) (ICD-10 - M79.674) 11/15/2024 Atherosclerosis of [place] arteries of extremities with intermittent claudication, bilateral legs (ICD-10 - I70.213) 09/13/2024 Atherosclerosis of [place] arteries of extremities with intermittent claudication, bilateral [...] a #15 blade 01/12/2024 Unspecified atherosclerosis of [place] arteries of extremities, bilateral legs (ICD-10 - I70.203) Patient educated on risks and aggravating factors of PVD, including conservative treatment options such as a diet and exercise regimen to aid in slowing progression of vascular disease 04/26/2024 Unspecified atherosclerosis of [place] arteries of extremities, bilateral legs (ICD-10 - I70.203) Patient educated on risks and aggravating factors of PVD, including conservative treatment options such as a diet and exercise regimen to aid in slowing progression of vascular disease 06/28/2024 Unspecified atherosclerosis of [place] arteries of extremities, bilateral legs (ICD-10 - [...] Details Provider Name:NURA FOUNTAIN, 01/17/2025 08:30:00 AM, [address] [place] [address], [place], [place], [phone], Insurance Providers Payer Name Payer Address Payer Phone Subscriber Number Group Number Insured Name Patient Relationship to Insured Coverage Start Date Coverage End Date Medicare Part B [facility] [address] [place] [address] [id number] Izaiah Hayes Self - patient is the insured [place] [employer] [address] [place] [address] [id number] Izaiah Hayes Self - patient is the insured
--- OUTSIDE RECORDS SUMMARY | 2024-12-25 11:42 | XMS_ITS ---
Author Organization [facility] Address [address] [place], [place] [address] Care Team Providers Care Thermal Molder Name Role Phone NAI DENISE Unavailable [phone] Ok Franklin Unavailable Unavailable KATHE DOYLE Unavailable [phone] REASON FOR VISIT *General care Encounters Encounter Location Date Provider Diagnosis [address] [id number] 09/06/2024 KATHE DOYLE Plan Of Treatment Next Appt Details Provider Name:NURA FOUNTAIN, 01/17/2025 08:30:00 AM, [address] [place] [address], [id number], Progress Notes * Izaiah DE DIOSDOB:1945 ( 79 yo M)Acc No.[id number]:09/06/2024 Patient: Izaiah ALBRIGHT Provider: Elias DOYLE :1945 A ge:79 Y S ex:Male Date:09/06/2024 Address:[address] [place], [place] Subjective: * Chief Complaints: * 1 . *General care. * Medical History: Objective: * Vitals: Assessment: Plan: * Treatment: * Billing Information: * Visit Code: * Procedure Codes: * Electronic signature of SHILA DOYLE DPM on 12/25/2024 at 11:41 AM CDT Sign off status: Pending * Provider: Elias DOYLE Date: 0 09/06/2024 Generated for Kaylee steinberg/Faxing/eTransmitting on: 0 12/25/2024 11:41 AM CDT
--- OUTSIDE RECORDS SUMMARY | 2024-12-25 11:42 | XMS_ITS | Clinical Summary ---
Author Organization [facility] Address [address] [place] [address] Care Team Providers Care Dyslexia Teacher Name Role Phone Landon Franklin MD Primary Care Provider [phone] Nader Burns MD Unavailable [phone] Kelsi Haile APRN BUSINESS EMPLOYMENT SPECIALIST-C Unavailable Aleksandr Jeffery MD Unavailable [phone] Remberto Malin MD Unavailable Allergies No [...] Date Diagnosed Date Resolved Date Pure hypercholesterolemia Family History Medical History Relation Comments Heart Attack Father CHF Mother Heart Disease Sister 1 Valve Disease Sister 2 Relation Status Comments Father (Age 74) Mother Sister 1 Sister 2 Social History Tobacco Use Types Packs/Day Years Used Date Smoking Tobacco: Never Smokeless Tobacco: Never Sex and Gender Information Value Date Recorded Sex Assigned at Not on file Legal Sex Male 9:12 AM HOT ROLLER Gender Identity Not on file Sexual Orientation Not on file Last Filed Vital Signs Vital Sign Reading Time Taken Comments Blood Pressure 134/78 08/31/2024 2:30 PM HOT ROLLER Pulse 64 08/31/2024 1:36 PM HOT ROLLER EKG Temperature - - Respiratory Rate 18 08/31/2024 1:36 PM HOT ROLLER Oxygen Saturation 95% 08/31/2024 1:36 PM HOT ROLLER Inhaled Oxygen Concentration - - Weight 88.4 kg (194 lb 12.8 oz) 08/31/2024 1:36 PM HOT ROLLER Height 185.4 cm (6' 1 ) 08/31/2024 1:36 PM HOT ROLLER Body Mass Index 25.7 08/31/2024 1:36 PM HOT ROLLER Plan of Treatment Upcoming Encounters Date Type Department Care Team (Late st Contact Info) Description 08/20/2025 1:00 PM HOT ROLLER Appointment [facility] Vascular Ultrasound - [facility] [address] [place] [address] Kelsi Haile APRN, BUSINESS EMPLOYMENT SPECIALIST-C [address] [phone] 08/20/2025 2:00 PM HOT ROLLER Office Visit [facility] el [address] [place] [phone] Kelsi Haile APRN, BUSINESS EMPLOYMENT SPECIALIST-C [address] [phone] Health Maintenance Due Date Last Done Comments [...] age to complete this topic Insurance MEDICARE [facility] Care Teams Dyslexia Teacher Relationship Specialty Start Date End Date Landon Franklin MD [address] [place] [address] PCP - General INTERNAL MEDICINE 08/07/20 Nader Burns MD [address] [place] [address] [place] Server Cashier CARDIOVASCULAR DISEASE 08/07/20 Kelsi Haile, ASSEMBLY OPERATOR, BUSINESS EMPLOYMENT SPECIALIST-C [address] [facility] [address] [place] [address] NURSE PRACTITIONER 10/10/23 Aleksandr Jeffery MD [address] [place] [address] Surgeon COLON/RECTAL SURGERY 10/10/23 Remberto Malin MD [address] [place] [address] Consulting Physician INTERVENTIONAL CARDIOLOGY 09/03/24
== END 2024-12-25 10:29 | disposition home or self-care (01) ==
PROVIDERS: PCP Internal Medicine; Visit Provider Internal Medicine
DX: M79.89 Other specified soft tissue disorders (principal)
CPT/HCPCS: 93970

== ENCOUNTER 2025-01-19 08:21 | Outpatient (CLI) | payer MEDICARE, SELFPAY ==
--- OUTSIDE RECORDS SUMMARY | 2025-01-19 08:26 | XMS_ITS ---
Author Organization [facility] Address [address] [place], [place] [address] Care Team Providers Care Interior Design Principal Name Role Phone SHELLYKeyana DENISE Unavailable [phone] Ok Franklin Unavailable Unavailable Allergies No Known [...] Active Encounters Encounter Location Date Provider Diagnosis [address] [id number] 11/15/2024 DENISE GUERRA Tinea unguium B35.1 ; Pain in left foot M79.672 ; Pain in right foot M79.671 ; Atherosclerosis of [place] arteries of extremities with intermittent claudication, [...] foot (ICD-10 - M79.671) 11/15/2024 Atherosclerosis of [place] arteries of extremities with intermittent claudication, [...] sooner if problems develop. Provider Name:NURA FOUNTAIN, 03/21/2025 08:30:00 AM, [address] [place] [address], [id number], Progress Notes * Izaiah HAYESDOB:1945 ( 79 yo M)Acc No.[id number]:11/15/2024 Patient: Izaiah ALBRIGHT Provider: Mavis Guerra DPM :1945 A ge:79 Y S ex:Male Date:11/15/2024 Address:[address] [id number] Subjective: * Chief Complaints: * 1 [...] - M79.671 4 . A therosclerosis of [place] arteries of extremities with intermittent claudication, [...] 1055 TRIM SKIN LESION, Modifiers: Q8 , 27584 DEBRIDE NAIL, 6 OR MORE, Modifiers: 59 , Q8 * Follow Up: 1 0 - 12 weeks (Reason: At-Risk Foot care, sooner if problems develop.) * Billing Information: * Visit Code: * Procedure Codes: 11030 TRIM SKIN LESION. Modifiers: Q8 93283 DEBRIDE NAIL, 6 OR MORE. Modifiers: 59, Q8 * Electronic signature of DENISE GUERRA DPM on 01/19/2025 at 08:25 AM CDT Sign off status: Pending * Provider: Mavis Guerra DPM Date: 0 11/15/2024 Generated for Kaylee steinberg/Tristen/Dale on: 0 01/19/2025 08:25 AM CDT History and Physical Notes * [...]
--- OUTSIDE RECORDS SUMMARY | 2025-01-19 08:26 | XMS_ITS | Patient Health Record ---
Author Organization [facility] Address [address] [place], [place] [address] Care Team Providers Care Organ Builder Name Role Phone DENISE GUERRA Unavailable [phone] Ok Franklin Unavailable Unavailable KATHE DOYLE Unavailable [phone] NURA SOLOMON Unavailable [phone] Allergies No Known Allergies Reason For Referral No Information Medications Medication SIG (Take, Route, Fr equency, Duration) Notes Start Date End Date Status Aspirin 81 MG 1 tablet Orally Once a day Active Clotrimazole 1 % 1 application Externally Twice a day for 30 days dispense largest tube please 01/17/2025 07/15/2025 Act melonie Immunizations Vaccine Route Administration Date Status Comme nts Influenza, high dose seasonal Unknown 04/29/2023 Admini stered Vital Signs Height-cm 180.34 cm 01/17/2025 Weight-kg 87.09 kg 01/17/2025 Height 71 in 01/17/2025 Weight 192 lbs 01/17/2025 BMI 26.78 kg/m2 01/17/2025 Encounters Encounter Location Date Provider Diagnosis [address] [id number] 11/15/2024 DENISE GUERRA Tinea unguium B35.1 ; Pain in left foot M79.672 ; Pain in right foot M79.671 ; Atherosclerosis of [place] arteries of extremities with intermittent claudication, bilateral legs I70.213 ; Acquired keratosis [keratoderma] palmaris et plantaris L85.1 and Venous insufficiency (chronic) (peripheral) I87.[address] [id number] 01/17/2025 NURA SOLOMON Tinea unguium B35.1 ; Pain in left foot M79.672 ; Pain in right foot M79.671 ; Atherosclerosis of [place] arteries of extremities with intermittent claudication, bilateral legs I70.213 ; Acquired keratosis [keratoderma] palmaris et plantaris L85.1 and Venous insufficiency (chronic) (peripheral) I87.[address] [id number] 04/26/2024 KATHE DOYLE Other hammer toe(s) (acquired), right foot M20.41 ; Tinea unguium B35.1 ; Other hammer toe(s) (acquired), left foot M20.42 ; Pain in right toe(s) M79.674 ; Pain in left toe(s) M79.675 ; Unspecified atherosclerosis of [place] arteries of extremities, bilateral legs I70.203 and Acquired keratosis [keratoderma] palmaris et plantaris L85.[address] [id number] 06/28/2024 KATHE DOYLE Other hammer toe(s) (acquired), right foot M20.41 ; Tinea unguium B35.1 ; Other hammer toe(s) (acquired), left foot M20.42 ; Pain in right toe(s) M79.674 ; Pain in left toe(s) M79.675 ; Unspecified atherosclerosis of [place] arteries of extremities, bilateral legs I70.203 and Acquired keratosis [keratoderma] palmaris et plantaris L85.[address] [id number] 09/13/2024 DENISE GUERRA Tinea unguium B35.1 ; Pain in right foot M79.671 ; Pain in left foot M79.672 ; Atherosclerosis of [place] arteries of extremities with intermittent claudication, bilateral legs I70.213 and Acquired keratosis [keratoderma] palmaris et plantaris L85.1 Assessments Encounter Date Diagnosis (ICD Code) Assessment Notes Treatment Notes Treatment Clinical Notes Section Notes 04/26/2024 Tinea unguium (ICD-10 - B35.1) Aseptic [...] Pain in left foot (ICD-10 - M79.672) 01/17/2025 Tinea unguium (ICD-10 - B35.1) Nails [...] use aquaphor daily to calluses as well. 11/15/2024 Pain in right foot (ICD-10 - M79.671) 01/17/2025 Pain in right foot (ICD-10 - M79.671) 09/13/2024 Pain in left foot (ICD-10 - M79.672) 06/28/2024 Other hammer toe(s) (acquired), left foot (ICD-10 - M20.42) 04/26/2024 Other hammer toe(s) (acquired), left foot (ICD-10 - M20.42) 04/26/2024 Pain in right toe(s) (ICD-10 - M79.674) 06/28/2024 Pain in right toe(s) (ICD-10 - M79.674) 11/15/2024 Atherosclerosis of [place] arteries of extremities with intermittent claudication, bilateral legs (ICD-10 - I70.213) 09/13/2024 Atherosclerosis of [place] arteries of extremities with intermittent claudication, bilateral legs (ICD-10 - I70.213) 01/17/2025 Atherosclerosis of [place] arteries of extremities with intermittent claudication, bilateral legs (ICD-10 - I70.213) Check and protect LE bilateral daily. Call if any changes or concerns. 01/17/2025 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.1) A total of 2 corns or calluses, as described in the note above, were cut and pared utilizing a #15 blade 11/15/2024 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.1) A total of 1 corns or calluses, as described in the note above, were cut and pared utilizing a #15 blade 09/13/2024 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.1) A total of 1 corns or calluses, as described in the note above, were cut and pared utilizing a #15 blade 06/28/2024 Pain in left toe(s) (ICD-10 - M79.675) 04/26/2024 Pain in left toe(s) (ICD-10 - M79.675) 04/26/2024 Unspecified atherosclerosis of [place] arteries of extremities, bilateral legs (ICD-10 - I70.203) Patient educated on risks and aggravating factors of PVD, including conservative treatment options such as a diet and exercise regimen to aid in slowing progression of vascular disease 06/28/2024 Unspecified atherosclerosis of [place] arteries of extremities, bilateral legs (ICD-10 - [...] physician for potential diuretic management if needed. 01/17/2025 Venous insufficiency (chronic) (peripheral) (ICD-10 - I87.2) Edema Recommendations: Advised patient on edema treatment recommendations. Recommendation for periodic elevation of feet and lower legs through the day. Recommend support compression hose. Advised on using daily and getting size XL. Recommend dietary restrictions salt intake. Followup with family physician for continued diuretic management if needed. 06/28/2024 Acquired keratosis [...] or drainage was noted. Plan Of Treatment Next Appt Details Provider Name:NURA FOUNTAIN, 03/21/2025 08:30:00 AM, [address] [place] [address], [id number], Insurance Providers Payer Name Payer Address Payer Phone Subscriber Number Group Number Insured Name Patient Relationship to Insured Coverage Start Date Coverage End Date Medicare Part B [facility] [address] [place] [phone] [id number] Izaiah Hayes Self - patient is the insured [employer] [place] [address] [facility] [place] [facility] [place] [id number] Izaiah Hayes Self - patient is the insured
--- OUTSIDE RECORDS SUMMARY | 2025-01-19 08:26 | XMS_ITS | Clinical Summary ---
Author Organization [facility] Address [address] [place] [address] Care Team Providers Care Rock Loader Name Role Phone Landon Franklin MD Primary Care Provider Source Comments [facility],non-owned Affiliates and Associated Physician Practices is amultiple site organization consisting of ambulatory clinics and hospital sitesin [place], [place], [place] and [place]. This disclosure is being madepursuant to the Care Everywhere program and may not contain all information available regarding this patient. Last updated 18.[facility] Allergies No known active allergies Medications * [...] meals 30 Tab 7 Active nystatin (MYCOSTATIN) 750017 UNIT/GM powder Apply to affected area 3 [...] on file Legal Sex Male 1:37 PM SOCIAL PSYCHOLOGIST Gender Identity Not on file Sexual Orientation Not on file Last Filed Vital Signs Vital Sign Reading Time Taken Comments Blood Pressure 118/75 09/26/2016 12:33 PM SOCIAL PSYCHOLOGIST Pulse 83 09/26/2016 12:33 PM SOCIAL PSYCHOLOGIST Temperature 36.6 C (97.9 F) 09/26/2016 12:33 PM SOCIAL PSYCHOLOGIST Respiratory Rate 18 09/26/2016 12:33 PM SOCIAL PSYCHOLOGIST Oxygen Saturation 99% 09/26/2016 12:33 PM SOCIAL PSYCHOLOGIST Inhaled Oxygen Concentration - - Weight 81.2 kg (179 lb) 10/26/2016 10:26 AM SOCIAL PSYCHOLOGIST Height 185.4 cm (6' 1) 10/26/2016 10:26 AM SOCIAL PSYCHOLOGIST Body Mass Index 23.62 10/26/2016 10:26 AM SOCIAL PSYCHOLOGIST Plan of Treatment Health Maintenance Due Date [...] this topic Medical Devices Implanted Type Area Property Insurance Agent Device Identifier Shelf Expiration Date Model / Serial / Lot Shell Actb 58mm 3 Hl Poly R3 Std Implanted:Qty: 1 on 09/24/2016 by Francisco Shankar MD at [facility] Right: Hip [employer] 06/23/2026 [id number] / / [id number] Acetabular Liner Uhmwpe Implanted:Qty: 1 on 09/24/2016 by Francisco Shankar MD at [facility] Right: Hip [employer] 07/29/2024 [id number] / / [id number] Screw 6.5mm 40mm Sphr Hip Actb Reflc Implanted:Qty: 1 on 09/24/2016 by Francisco Shankar MD at [facility] Right: Hip [employer] 06/06/2025 [id number] / / [id number] Stem Standard With Ti/Eason Implanted:Qty: 1 on 09/24/2016 by Francisco Shankar MD at [facility] Right: Hip [employer] 06/08/2023 [id number] / / [id number] Ceramic Modular Femoral Head Implanted:Qty: 1 on 09/24/2016 by Francisco Shankar MD at [facility] Right: Hip [employer] 07/13/2026 [id number] / / [id number] Cal Uncem Hip All Inclusive Implanted:Qty: 1 on 09/24/2016 by Francisco Shankar MD at [facility] [employer] BILL ONLY [employer] HIP ALL INCLUSIVE SNORTH / / Insurance MEDICARE [facility] COMMERCIAL GENERIC MEDICARE Advance Directives * Full Code (Latest Code Status on File) Date Activated Date Inactivated Comments 09/24/2016 4:27 PM 09/26/2016 3:16 PM * Full Code Date Activated Date Inactivated Comments 09/24/2016 2:17 PM 09/24/2016 4:27 PM Care Teams Rock Loader Relationship Specialty Start Date End Date Landon Franklin MD PCP - General Internal Medicine 06/30/15
--- OUTSIDE RECORDS SUMMARY | 2025-01-19 08:26 | XMS_ITS ---
Author Organization [facility] Address [address] [place], [place] [address] Care Team Providers Care Lift Builder Whole Name Role Phone DENISE GUERRA Unavailable [phone] Ok Franklin Unavailable Unavailable NURA SOLOMON Unavailable [phone] REASON FOR VISIT *General care Medications Medication [...] 01/17/2025 Encounters Encounter Location Date Provider Diagnosis [address] [id number] 01/17/2025 NURA SOLOMON Tinea unguium B35.1 ; Pain in left foot M79.672 ; Pain in right foot M79.671 ; Atherosclerosis of elem arteries of extremities with intermittent claudication, bilateral [...] foot (ICD-10 - M79.671) 01/17/2025 Atherosclerosis of elem arteries of extremities with intermittent claudication, bilateral [...] Date Notes Clotrimazole 1 % 1 application Plywood Patcher ally Twice a day for 30 days 01/17/2025 07/15/2025 Treatment Notes Assessment [...] daily to calluses as well. Atherosclerosis of elem ar teries of extremities with intermittent claudication, [...] and edema follow up Provider Name:NURA FOUNTAIN, 03/21/2025 08:30:00 AM, [address] [place] [address], [id number], Progress Notes * FREDDY IzaiahDOB:1945 ( 79 yo M)Acc No.[id number]:01/17/2025 Patient: Izaiah ALBRIGHT Provider: Aroldo SOLOMON :1945 A ge:79 Y S ex:Male Date:01/17/2025 Address:[address] [place], [place] [id number] Subjective: * Chief Complaints: * 1 . [...] seen by Dr. Franklin was 11/2024., Initials [facility]. * ROS: G eneral / [...] - M79.671 4 . A therosclerosis of elem arteries of extremities with intermittent claudication, bilateral [...] calluses as well. 3. A therosclerosis of elem arteries of extremities with intermittent claudication, bilateral [...] record has been reviewed and updated. * Follow Up: 1 0 - 12 weeks (Reason: get OTC orthotics for work boots , add met pads, General care and edema follow up) * Billing Information: * Visit Code: * Procedure Codes: * Electronic signature of VICKIE SOLOMON DPM on 01/19/2025 at 08:25 AM CDT Sign off status: Pending * Provider: Aroldo SOLOMON Date: 01/17/2025 Generated for Kaylee Chester on: 01/19/2025 08:25 AM CDT History and Physical [...]
[2025-01-19 09:07] LABS: Anion Gap 7 mmol/L (4-12); Blood Urea Nitrogen 35 mg/dL (9-20); Carbon Dioxide 28 mmol/L (22-30); Chloride 103 mmol/L (98-107); Estimated Glomerular Filt Rate 53; Glucose 121 mg/dL (65-110); Osmolality Calculated 295 mOsm/kg (285-295); Potassium 4.1 mmol/L (3.4-5.0); Sodium 138 mmol/L (137-145)
[2025-01-19 09:38] LABS: Prostate Specific Antigen 7.8 ng/mL (< OR = 4.0)
[2025-01-23 08:38] LABS: Testosterone Total 19 ng/dL (250-1100)
== END 2025-01-19 08:22 | disposition home or self-care (01) ==
LOC: CHSLAB 08:24
PROVIDERS: PCP Internal Medicine; Visit Provider Urology
DX: I10 Essential (primary) hypertension (principal); C61 Malignant neoplasm of prostate
CPT/HCPCS: 36415; 80048; 84153; 84403

== ENCOUNTER 2025-02-04 08:03 | Outpatient (CLI) | payer MEDICARE, OTHER, SELFPAY ==
--- NOTE | ~2025-02-04 | PE_ITS ---
EXAMINATION: PET_PETPSMAST_PT DATE: 02/04/2025 10:55 INDICATION: Osteopenia cancer TECHNIQUE: 4.254 mCi of Illucix Ga-68([id number]) was administered i.v. Low dose computed lesley graphy (CT) images were acquired from the base of the brain to the base of the brain to the proximal thighs for attenuation correction and anatomic localization. Positron emission tomography (PET) image s were acquired in the same distribution beginning 94 minutes after injection. Images including fused PET/CT images were reconstructed in axial, coronal, and sagittal planes. Automated exposure control technique was employed. The dose-length product was 1152.24mGy-cm. COMPARISON: None FINDINGS: Head/neck: Typical pattern of symmetric physiologic increased activity in the lacrimal, parotid and submandibula r glands as well as along the mucosa of the nasal and oral cavities, pharynx and hypopharynx. No path ologically enlarged cervical lymphadenopathy or suspicious foci of increased uptake in the visualized head or neck. Chest: Calcified pleural-parenchymal scarring at the bilateral apices of lungs. There are few calcified nodu les in the right lower lobe and calcified right hilar lymph nodes consistent with old granulomatous d isease. No other suspicious pulmonary nodules, pneumonia, pulmonary edema or pleural effusion. Heart size normal. Atherosclerotic coronary artery calcific location. Thoracic aorta is normal in caliber. No pathologically enlarged or PSMA avid thoracic lymphadenopathy. Bilateral gynecomastia with mild as ymmetric uptake on the left. Abdomen/pelvis/proximal thighs: Physiologic renal accumulation and excretion of activity in the kidneys, bladder and along portions o f ureters. Photopenic defect associated with a 4.5 cm exophytic cyst at the upper pole the right kidn ey. There are couple metallic densities at the posterior aspect of the prostate and favor fiducial ma rkers over surgical clips are brachytherapy seeds. There is prominent increased activity throughout t he prostate with maximal SUV of 37.9 consistent with residual/recurrent primary prostate cancer. Norm al degree and slightly heterogenous pattern of increased uptake throughout the liver and spleen witho ut radiologic correlate or dominant PSMA avid lesion. Splenic calcifications consistent with old gran ulomatous disease. The gallbladder, pancreas and bilateral adrenal glands are normal. Moderate uptake scattered throughout the bowels with typical duodenal and proximal jejunal predominance and without radiologic correlate, also likely physiologic. Normal appendix. No other abnormal foci of increased u ptake or pathologically enlarged lymphadenopathy in the abdomen, pelvis or proximal thighs. Moderate amount of residual fat within the left inguinal canal with change of prior bilateral inguinal hernia repairs. Musculoskeletal: Right total hip arthroplasty. There is plate and screw fixation along the posterior column of the rig ht acetabulum. Old healed segmental fracture of the right inferior pubic ramus. Mild to moderate cerv ical and thoracic and severe lumbar spondylosis. No suspicious lytic, blastic or abnormally PSMA avid bone lesions. IMPRESSION: 1. Prominent increased activity throughout the prostate consistent with residual/recurrent primary pr ostate cancer. No lesion suspicious for metastatic disease. Reviewed, dictated and finalized at location A. IMPRESSION: 1. Prominent increased activity throughout the prostate consistent with residua l/recurrent primary prostate cancer. No lesion suspicious for metastatic diseas e.
--- OUTSIDE RECORDS SUMMARY | 2025-02-04 08:11 | XMS_ITS | Clinical Summary ---
Author Organization [facility] Address [address] [place] [address] Care Team Providers Care Brake Reliner Name Role Phone Landon Franklin MD Primary Care Provider [phone] Source Comments [facility],non-owned Affiliates and Associated Physician Practices is amultiple site organization consisting of ambulatory clinics and hospital sitesin [place], [place], [place] and [place]. This disclosure is being madepursuant to the Care Everywhere program and may not contain all information available regarding this patient. Last updated 18.[facility] Allergies No known active allergies Medications * [...] meals 30 Tab 7 Active nystatin (MYCOSTATIN) 136102 UNIT/GM powder Apply to affected area 3 [...] on file Legal Sex Male 1:37 PM DE ALCOHOLIZER Gender Identity Not on file Sexual Orientation Not on file Last Filed Vital Signs Vital Sign Reading Time Taken Comments Blood Pressure 118/75 09/26/2016 12:33 PM DE ALCOHOLIZER Pulse 83 09/26/2016 12:33 PM DE ALCOHOLIZER Temperature 36.6 C (97.9 F) 09/26/2016 12:33 PM DE ALCOHOLIZER Respiratory Rate 18 09/26/2016 12:33 PM DE ALCOHOLIZER Oxygen Saturation 99% 09/26/2016 12:33 PM DE ALCOHOLIZER Inhaled Oxygen Concentration - - Weight 81.2 kg (179 lb) 10/26/2016 10:26 AM DE ALCOHOLIZER Height 185.4 cm (6' 1) 10/26/2016 10:26 AM DE ALCOHOLIZER Body Mass Index 23.62 10/26/2016 10:26 AM DE ALCOHOLIZER Plan of Treatment Health Maintenance Due Date [...] this topic Medical Devices Implanted Type Area Ambulance Driver Device Identifier Shelf Expiration Date Model / Serial / Lot Shell Actb 58mm 3 Hl Poly R3 Std Implanted:Qty: 1 on 09/24/2016 by Francisco Shankar MD at [facility] Right: Hip [employer] 06/23/2026 [id number] / / [id number] Acetabular Liner Uhmwpe Implanted:Qty: 1 on 09/24/2016 by Francisco Shankar MD at [facility] Right: Hip [employer] 07/29/2024 [id number] / / [id number] Screw 6.5mm 40mm Sphr Hip Actb Reflc Implanted:Qty: 1 on 09/24/2016 by Francisco Shankar MD at [facility] Right: Hip [employer] 06/06/2025 [id number] / / [id number] Stem Standard With Ti/Eason Implanted:Qty: 1 on 09/24/2016 by Francisco Shankar MD at [facility] Right: Hip [employer] 06/08/2023 [id number] / / [id number] Ceramic Modular Femoral Head Implanted:Qty: 1 on 09/24/2016 by Francisco Shankar MD at [facility] Right: Hip [employer] 07/13/2026 [id number] / / [id number] Cal Uncem Hip All Inclusive Implanted:Qty: 1 on 09/24/2016 by Francisco Shankar MD at [facility] [employer] BILL ONLY [employer] HIP ALL INCLUSIVE SNORTH / / Insurance MEDICARE [facility] Care Address: [facility] [id number] [place] [address] [facility] COMMERCIAL GENERIC MEDICARE Advance Directives * Full Code (Latest Code Status on File) Date Activated Date Inactivated Comments 09/24/2016 4:27 PM 09/26/2016 3:16 PM * Full Code Date Activated Date Inactivated Comments 09/24/2016 2:17 PM 09/24/2016 4:27 PM Care Teams Brake Reliner Relationship Specialty Start Date End Date Landon Franklin MD PCP - General Internal Medicine 06/30/15
--- OUTSIDE RECORDS SUMMARY | 2025-02-04 08:11 | XMS_ITS ---
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 Provider Name:NURA FOUNTAIN, 03/21/2025 08:30:00 AM, [address] [place] [address], [id number], Progress Notes * Izaiah HAYESDOB:1945 ( 79 yo M)Acc No.[id number]:11/15/2024 Patient: Izaiah ALBRIGHT Provider: Mavis Guerra DPM :1945 A ge:79 Y S ex:Male Date:11/15/2024 Address:[address] Subjective: * Chief Complaints: * [...] - M79.671 4 . 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 Modifiers: Q8 89025 DEBRIDE NAIL, 6 OR MORE. Modifiers: 59, Q8 * Electronic signature of DENISE GUERRA DPM on 02/04/2025 at 08:10 AM CDT Sign off status: Pending * Provider: Mavis Guerra DPM Date: 0 11/15/2024 Generated for Kaylee steinberg/Tristen/Dale on: 0 02/04/2025 08:10 AM CDT History and Physical Notes * [...]
--- OUTSIDE RECORDS SUMMARY | 2025-02-04 08:11 | XMS_ITS ---
Author Organization [facility] Address [address] [place], [place] [address] Care Team Providers Care Financial Underwriter Name Role Phone DENISE GUERRA Unavailable [phone] Ok Franklin Unavailable Unavailable NURA SOLOMON Unavailable [phone] REASON FOR VISIT *General care Medications Medication [...] 01/17/2025 Encounters Encounter Location Date Provider Diagnosis [address] [id number] 01/17/2025 NURA SOLOMON Tinea unguium B35.1 ; Pain in left foot M79.672 ; Pain in right foot M79.671 ; Atherosclerosis of [place] arteries of extremities with intermittent claudication, bilateral [...] foot (ICD-10 - M79.671) 01/17/2025 Atherosclerosis of [place] arteries of extremities with intermittent claudication, bilateral [...] Date Notes Clotrimazole 1 % 1 application Tuyere Fitter ally Twice a day for 30 days [...] daily to calluses as well. Atherosclerosis of [place] ar teries of extremities with intermittent claudication, [...] up Provider Name:NURA FOUNTAIN, 03/21/2025 08:30:00 AM, [address] [place] [address], [id number], Progress Notes * FREDDY IzaiahDOB:1945 ( 79 yo M)Acc No.[id number]:01/17/2025 Patient: Izaiah ALBRIGHT Provider: Aroldo SOLOMON :1945 A ge:79 Y S ex:Male Date:01/17/2025 Address:[address] [place], [place] [address] Subjective: * Chief Complaints: * 1 . [...] seen by Dr. Franklin was 11/2024., Initials [facility]. * ROS: G eneral / Constitutional: Patient [...] - M79.671 4 . A therosclerosis of [place] arteries of extremities with intermittent claudication, bilateral [...] calluses as well. 3. A therosclerosis of [place] arteries of extremities with intermittent claudication, bilateral [...] Electronic signature of VICKIE SOLOMON DPM on 02/04/2025 at 08:11 AM CDT Sign off status: Pending * Provider: Aroldo SOLOMON Date: 0 01/17/2025 Generated for Kaylee Chester on: 0 02/04/2025 08:11 AM CDT History and Physical Notes * [...]
--- OUTSIDE RECORDS SUMMARY | 2025-02-04 08:11 | XMS_ITS | Patient Health Record ---
Author Organization [facility] Address [address] [place], [place] [id number] Care Team Providers Care Slide Forming Machine Operator Name Role Phone DENISE GUERRA Unavailable [phone] Ok Franklin Unavailable Unavailable KATHE DOYLE Unavailable [phone] NURA SOLOMON Unavailable [phone] Allergies No Known Allergies Reason For Referral [...] 01/17/2025 Encounters Encounter Location Date Provider Diagnosis [address] [id number] 11/15/2024 DENISE GUERRA Tinea unguium B35.1 ; Pain in left foot M79.672 ; Pain in right foot M79.671 ; Atherosclerosis of [place] arteries of extremities with intermittent claudication, bilateral legs I70.213 ; Acquired keratosis [keratoderma] palmaris et plantaris L85.1 and Venous insufficiency (chronic) (peripheral) I87.[address] [id number] 01/17/2025 NURA SOLOMON Tinea unguium B35.1 ; Pain in left foot M79.672 ; Pain in right foot M79.671 ; Atherosclerosis of [place] arteries of extremities with intermittent claudication, bilateral legs I70.213 ; Acquired keratosis [keratoderma] palmaris et plantaris L85.1 and Venous insufficiency (chronic) (peripheral) I87.[address] [id number] 04/26/2024 KATHE DOYLE Other hammer toe(s) (acquired), right foot M20.41 ; Tinea unguium B35.1 ; Other hammer toe(s) (acquired), left foot M20.42 ; Pain in right toe(s) M79.674 ; Pain in left toe(s) M79.675 ; Unspecified atherosclerosis of [place] arteries of extremities, bilateral legs I70.203 and Acquired keratosis [keratoderma] palmaris et plantaris L85.[address] [id number] 06/28/2024 KATHE DOYLE Other hammer toe(s) (acquired), right foot M20.41 ; Tinea unguium B35.1 ; Other hammer toe(s) (acquired), left foot M20.42 ; Pain in right toe(s) M79.674 ; Pain in left toe(s) M79.675 ; Unspecified atherosclerosis of [place] arteries of extremities, bilateral legs I70.203 and Acquired keratosis [keratoderma] palmaris et plantaris L85.[address] [id number] 09/13/2024 DENISE GUERRA Tinea unguium B35.1 ; Pain in right foot M79.671 ; Pain in left foot M79.672 ; Atherosclerosis of [place] arteries of extremities with intermittent claudication, bilateral [...] toe(s) (ICD-10 - M79.674) 11/15/2024 Atherosclerosis of [place] arteries of extremities with intermittent claudication, bilateral legs (ICD-10 - I70.213) 09/13/2024 Atherosclerosis of [place] arteries of extremities with intermittent claudication, bilateral legs (ICD-10 - I70.213) 01/17/2025 Atherosclerosis of [place] arteries of extremities with intermittent claudication, bilateral [...] (ICD-10 - M79.675) 04/26/2024 Unspecified atherosclerosis of [place] arteries of extremities, bilateral legs (ICD-10 - I70.203) Patient educated on risks and aggravating factors of PVD, including conservative treatment options such as a diet and exercise regimen to aid in slowing progression of vascular disease 06/28/2024 Unspecified atherosclerosis of [place] arteries of extremities, bilateral legs (ICD-10 - [...] Details Provider Name:NURA FOUNTAIN, 03/21/2025 08:30:00 AM, [address] [place] [address], [id number], Insurance Providers Payer Name Payer Address Payer Phone Subscriber Number Group Number Insured Name Patient Relationship to Insured Coverage Start Date Coverage End Date Medicare Part B [facility] [address] [place] [address] [id number] Izaiah Hayes Self - patient is the insured [employer] [place] [employer] [address] [facility] [place] [id number] Izaiah Hayes Self - patient is the insured
== END 2025-02-04 08:04 | disposition home or self-care (01) ==
PROVIDERS: PCP Internal Medicine; Visit Provider Urology
DX: C61 Malignant neoplasm of prostate (principal)
CPT/HCPCS: 78815; A9596

== ENCOUNTER 2025-05-30 09:45 | Outpatient (CLI) | payer MEDICARE, OTHER, SELFPAY ==
--- OUTSIDE RECORDS SUMMARY | 2025-01-17 03:30 | XMS_ITS ---
Author Organization [facility] Address [address] [place], [place] [address] Care Team Providers Care Family Resource Coordinator Name Role Phone DENISE GUERRA Unavailable [phone] Ok Franklin Unavailable Unavailable NURA SOLOMON Unavailable [phone] REASON FOR VISIT *General care Medications Medication SIG (Take, Route, Fr equency, Duration) Notes Start Date End Date Status Aspirin 81 MG 1 tablet Orally Once a day Active Clotrimazole 1 % 1 application Externally Twice a day; Duration: 30 days dispense largest tube please 01/17/2025 07/15/2025 Act melonie Vital Signs Height 71 in 01/17/2025 Weight 192 lbs 01/17/2025 BMI 26.78 kg/m2 01/17/2025 Height-cm 180.34 cm 01/17/2025 Weight-kg 87.09 kg 01/17/2025 Encounters Encounter Location Date Provider Diagnosis [address] [id number] 01/17/2025 NURA SOLOMON Tinea unguium B35.1 ; Pain in left foot M79.672 ; Pain in right foot M79.671 ; Atherosclerosis of [place] arteries of extremities with intermittent claudication, bilateral legs I70.213 ; Acquired keratosis [keratoderma] palmaris et plantaris L85.1 and Venous insufficiency (chronic) (peripheral) I87.2 Assessments Encounter Date Diagnosis (ICD Code) Assessment Notes Treatment Notes Treatment Clinical Notes Section Notes 01/17/2025 Tinea unguium (ICD-10 - B35.1) Nails 1-5 Bilateral were debrided extensively with nail nippers and emery board, reducing length and girth to pink healthy tissue with any subungual debris and necrotic tissue removed 01/17/2025 Pain in left foot (ICD-10 - M79.672) bring work boots next visit, will buy otc orthotics and apply met pads. He will use aquaphor daily to calluses as well. 01/17/2025 Pain in right foot (ICD-10 - M79.671) 01/17/2025 Atherosclerosis of [place] arteries of extremities with intermittent claudication, bilateral legs (ICD-10 - I70.213) Check and protect LE bilateral daily. Call if any changes or concerns. 01/17/2025 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.1) A total of 2 corns or calluses, as described in the note above, were cut and pared utilizing a #15 blade 01/17/2025 Venous insufficiency (chronic) (peripheral) (ICD-10 - I87.2) Edema Recommendations: Advised patient on edema treatment recommendations. Recommendation for periodic elevation of feet and lower legs through the day. Recommend support compression hose. Advised on using daily and getting size XL. Recommend dietary restrictions salt intake. Followup with family physician for continued diuretic management if needed. Plan Of Treatment Medication Medication Name Sig Start Date Stop Date Notes Clotrimazole 1 % 1 application Fitness Sales Associate ally Twice a day; Duration: 30 days 01/17/2025 07/15/2025 Treatment Notes Assessment Notes Tinea unguium Nails 1-5 Bilateral were debrided extensively with nail nippers and emery board, reducing length and girth to pink healthy tissue with any subungual debris and necrotic tissue removed Pain in left foot bring work boots nex t visit, will buy otc orthotics and apply met pads. He will use aquaphor daily to calluses as well. Atherosclerosis of [place] ar teries of extremities with intermittent claudication, bilateral legs Check and protect LE bilateral daily. Call if any changes or concerns. Acquired keratosis [keratode rma] palmaris et plantaris A total of 2 corns or calluses, as described in the note above, were cut and pared utilizing a #15 blade Venous insufficiency (chronic) (peripher al) Edema Recommendations: Advised patient on edema treatment recommendations. Recommendation for periodic elevation of feet and lower legs through the day. Recommend support compression hose. Advised on using daily and getting size XL. Recommend dietary restrictions salt intake. Followup with family physician for continued diuretic management if needed. Next Appt Details Follow Up: 10 - 12 weeks, Re ason: get OTC orthotics for work boots , add met pads, General care and edema follow up Provider Name:NURA FOUNTAIN, 08/01/2025 08:30:00 AM, [address] [place] [address], [id number], Progress Notes * Izaiah HAYESDOB:1945 ( 80 yo M)Acc No.[id number]:01/17/2025 Patient: Izaiah ALBRIGHT Provider: Aroldo SOLOMON :1945 A ge:79 Y S ex:Male Date:01/17/2025 Address:[address] [place], [place] [id number] Subjective: * Chief Complaints: * 1 . *General care. * HPI: H PI: General care P atient presents to the office for at risk foot care. Patient states that their nails are thickened, elongated and painful. Patient states that it is aggravated by shoe gear. Onset is gradual. Patient denies being diabetic., Patient is taking prescription blood thinners., Date last seen by Dr. Franklin was 11/2024., Initials [facility]. * ROS: G eneral / Constitutional: Patient denies w eakness. M usculoskeletal: Patient complains of f lat feet/ planus, arch pain. ? P eripheral Vascular: Patient denies b lanching of skin, cold extremities, decreased sensation in extremities. S kin: Patient complains of f ungal nails, nail changes, calluses and corns. N eurologic: Patient denies d izziness, gait abnormality, headache. * Medical History: * Medications: T aking Aspirin 81 MG Tablet Chewable 1 tablet Orally Once a day , Medication List reviewed and reconciled with the patient Objective: * Vitals: S hoe Size: 11, Wt: 192 lbs, Wt-k.09 kg, Ht: 71 in, Ht-cm: 180.34 cm, BMI: 26.78 Index, Body Surface Area: 2.09. * Examination: P hysical Examination: General appearance: A lert, pleasant, well-nourished and in no acute distress. D ermatologic: Skin findings: S kin is thin, atrophic and lacking pedal hair, dry peeling discolored skin bilateral foot.. Hypertrophic / hyperkeratotic lesion: p lantar aspect of the left> right 5th metatarsal head (2 total). Nail pathology: N ails 1, 2, 3, 4, and 5 bilateral are elongated, thick, discolored, and dystrophic with subungual debris. They are painful to palpation. ? V ascular: Dorsalis pedis pulse: 1 /4 b ilateral. Posterior tibial pulse: 0 /4 bilateral. Capillary refill: g reater than 3 seconds. Edema: m oderate edema bilateral, left greater than right. calf circumferance 15 inches. . N eurologic: Gross sensation G rossly intact [...] - M79.671 4 . A therosclerosis of [place] arteries of extremities with intermittent claudication, bilateral legs - I70.213 5 . Acquired keratosis [keratoderma] palmaris et plantaris - L85.1 6 . V enous insufficiency (chronic) (peripheral) - I87.2 Plan: * Treatment: 2. P ain in left foot Notes: bring work boots next visit, will buy otc orthotics and apply met pads. He will use aquaphor daily to calluses as well. 3. A therosclerosis of lyt[place] arteries of extremities with intermittent claudication, bilateral legs Notes: Check and protect LE bilateral daily. Call if any changes or concerns. 4. A cquired keratosis [keratoderma] palmaris et plantaris Notes: A total of 2 corns or calluses, as described in the note above, were cut and pared utilizing a #15 blade 5. V enous insufficiency (chronic) (peripheral) Notes: Edema Recommendations: Advised patient on edema treatment recommendations. Recommendation for periodic elevation of feet and lower legs through the day. Recommend support compression hose. Advised on using daily and getting size XL. Recommend dietary restrictions salt intake. Followup with family physician for continued diuretic management if needed. * Immunizations: Immunization record has been reviewed and updated. * Procedure Codes: 1 1056 TRIM SKIN LESIONS, 2 TO 4, Modifiers: Q8 , 71768 DEBRIDE NAIL, 6 OR MORE, Modifiers: 59 , Q8 * Follow Up: 1 0 - 12 weeks (Reason: get OTC orthotics for work boots , add met pads, General care and edema follow up) * Billing Information: * Visit Code: * Procedure Codes: 28285 TRIM SKIN LESIONS, 2 TO 4. Modifiers: Q8 55644 DEBRIDE NAIL, 6 OR MORE. Modifiers: 59, Q8 * Electronic signature of VICKIE SOLOMON DPM on 05/30/2025 at 10:16 AM CDT Sign off status: Pending * Provider: Aroldo SOLOMON Date: 0 01/17/2025 Generated for Kaylee steinberg/Tristen/Dale on: 10:16 AM CDT History and Physical Notes * HPI (History of Present Illness) Category Sub-Category Detail Notes Category Not es HPI General care Patient presents to the office for at risk foot care. Patient states that their nails are thickened, elongated and painful. Patient states that it is aggravated by shoe gear. Onset is gradual. Patient denies being diabetic., Patient is taking prescription blood thinners., Date last seen by Dr. Franklin was 11/2024., Initials [facility] Examination Category Sub-Category Detail Notes Category Not es Dermatologic Skin findings: Skin is thin, at rophic and lacking pedal hair, dry peeling discolored skin bilateral foot. Nail pathology: Nails 1, 2, 3, 4, an d 5 bilateral are elongated, thick, discolored, and dystrophic with subungual debris. They are painful to palpation Hypertrophic / hyperkeratotic lesion: pl isabel aspect of the left> right 5th metatarsal head (2 total) Neurologic Gross sensation Grossly intact t o light touch. There is negative Tinel's sign Vascular Dorsalis pedis pulse: 1/4 bilateral Edema: moderate edema bilat eral, left greater than right. calf circumferance 15 inches. Capillary refill: greater than 3 secon ds Posterior tibial pulse: 0/4 bilateral Physical Examination General appearance: Alert, pleasant, well-nourished and in no acute distress Musculoskeletal Muscle Strength Muscle strength is 5/5 in regards to dorsiflexion, plantarflexion, inversion, and eversion in bilateral lower extremities
--- OUTSIDE RECORDS SUMMARY | 2025-03-21 03:30 | XMS_ITS ---
Author Organization [facility] Address [address] [place], [place] [address] Care Team Providers Care Kennel Hand Name Role Phone DENISE GUERRA Unavailable [phone] Ok Franklin Unavailable Unavailable NURA SOLOMON Unavailable [phone] Allergies No Known Allergies REASON FOR VISIT *General care Medications Medication SIG (Take, Route, Fr equency, Duration) Notes Start Date End Date Status Clotrimazole 1 % 1 application Externally Twice a day; Duration: 30 days dispense largest tube please Act melonie Aspirin 81 MG 1 tablet Orally Once a day Active Vital Signs Height 71 in 03/21/2025 Weight 192 lbs 03/21/2025 BMI 26.78 kg/m2 03/21/2025 Height-cm 180.34 cm 03/21/2025 Weight-kg 87.09 kg 03/21/2025 Encounters Encounter Location Date Provider Diagnosis [address] [id number] 03/21/2025 NURA SOLOMON Tinea unguium B35.1 ; Pain in left foot M79.672 ; Pain in right foot M79.671 ; Atherosclerosis of pauma arteries of extremities with intermittent claudication, bilateral legs I70.213 ; Acquired keratosis [keratoderma] palmaris et plantaris L85.1 and Venous insufficiency (chronic) (peripheral) I87.2 Assessments Encounter Date Diagnosis (ICD Code) Assessment Notes Treatment Notes Treatment Clinical Notes Section Notes 03/21/2025 Tinea unguium (ICD-10 - B35.1) Nails 1-5 Bilateral were debrided extensively with nail nippers and emery board, reducing length and girth to pink healthy tissue with any subungual debris and necrotic tissue removed 03/21/2025 Pain in left foot (ICD-10 - M79.672) bring work boots next visit, will buy otc orthotics and apply met pads. He will use aquaphor daily to calluses as well. 03/21/2025 Pain in right foot (ICD-10 - M79.671) 03/21/2025 Atherosclerosis of pauma arteries of extremities with intermittent claudication, bilateral legs (ICD-10 - I70.213) Check and protect LE bilateral daily. Call if any changes or concerns. 03/21/2025 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.1) A total of 2 corns or calluses, as described in the note above, were cut and pared utilizing a #15 blade 03/21/2025 Venous insufficiency (chronic) (peripheral) (ICD-10 - I87.2) [...] Date Notes Clotrimazole 1 % 1 application Turntable Man ally Twice a day; Duration: 30 days Treatment Notes Assessment Notes Tinea unguium Nails 1-5 Bilateral were debrided extensively with nail nippers and emery board, reducing length and girth to pink healthy tissue with any subungual debris and necrotic tissue removed Pain in left foot bring work boots nex t visit, will buy otc orthotics and apply met pads. He will use aquaphor daily to calluses as well. Atherosclerosis of pauma ar teries of extremities with intermittent claudication, [...] Up: 10 - 12 weeks, Re ason: orthotics w met pads for work boots check efficacy, edema check Provider Name:NURA Brambila MEÑO MARTINEZKATHERINE, 08/01/2025 08:30:00 AM, [address] [place] [address], [id number], Progress Notes * Izaiah HAYESDOB:1945 ( 80 yo M)Acc No.[id number]:03/21/2025 Patient: Izaiah ALBRIGHT Provider: Aroldo SOLOMON :1945 A ge:79 Y S ex:Male Date:03/21/2025 Address:[address] [place], [place] [id number] Subjective: * Chief Complaints: * 1 . *General care. * HPI: H PI: General care P atient presents to the office for at risk foot care. Patient states that their nails are thickened, elongated and painful. Patient states that it is aggravated by shoe gear. Onset is gradual. Patient denies being diabetic., Patient denies taking prescription blood thinners but does take a daily aspirin. S ize 10.5 otc orthotics with met pads for work boots were meant to be dispensed today but he will wait until a future date as he forgot his work boots. D ate last seen by Dr. Euceda was 11/2024., Initials nd,. * ROS: G eneral / Constitutional: Patient denies w eakness. M usculoskeletal: Patient complains of f lat feet/ planus, arch pain. ? P eripheral Vascular: Patient denies b lanching of skin, cold extremities, decreased sensation in extremities. S kin: Patient complains of f ungal nails, nail changes, calluses and corns. N eurologic: Patient denies d izziness, gait abnormality, headache. * Medical History: N o Reported Medical History.Medical History Verified. * Surgical History: D enies Past Surgical History. * Hospitalization/Major Diagno stic Procedure: D enies Past Hospitalization. * Family History: N o Family History documented.. * Medications: T aking Aspirin 81 MG Tablet Chewable 1 tablet Orally Once a day , Taking Clotrimazole 1 % Cream 1 application Externally Twice a day dispense largest tube please, stop date 07/15/2025, Medication List reviewed and reconciled with the patient * Allergies: N .K.D.A. Objective: * Vitals: S hoe Size: 11, [...] - M79.671 4 . A therosclerosis of pauma arteries of extremities with intermittent claudication, bilateral [...] calluses as well. 3. A therosclerosis of pauma arteries of extremities with intermittent claudication, bilateral [...] for continued diuretic management if needed. * Procedure Codes: 1 1721 DEBRIDE NAIL, 6 OR MORE, Modifiers: Q8 * Follow Up: 1 0 - 12 weeks (Reason: orthotics w met pads for work boots check efficacy, edema check) * Billing Information: * Visit Code: * Procedure Codes: 32766 DEBRIDE NAIL, 6 OR MORE. Modifiers: Q8 * Electronic signature of VICKIE SOLOMON DPM on 05/30/2025 at 10:16 AM CDT Sign off status: Pending * Provider: Aroldo SOLOMON Date: 0 03/21/2025 Generated for Kaylee Chester on: 10:16 AM CDT History and Physical [...] blood thinners but does take a daily aspirin.Size 10.5 otc orthotics with met pads for work boots were meant to be dispensed today but he will wait until a future date as he forgot his work boots.Date last seen by Dr. Euceda was 11/2024., Initials nd, Examination Category Sub-Category Detail Notes Category Not [...]
--- OUTSIDE RECORDS SUMMARY | 2025-05-23 03:30 | XMS_ITS ---
Author Organization [facility] Address [address] [place], [place] [address] Care Team Providers Care Dock Associate Name Role Phone DENISE GUERRA Unavailable [phone] Ok Franklin Unavailable Unavailable NURA SOLOMON Unavailable [phone] Allergies No Known Allergies REASON FOR VISIT *General care Medications Medication SIG (Take, Route, Fr equency, Duration) Notes Start Date End Date Status Clotrimazole 1 % 1 application Externally Twice a day; Duration: 30 days dispense largest tube please Act melonie Aspirin 81 MG 1 tablet Orally Once a day Active Vital Signs Height 71 in 05/23/2025 Weight 192 lbs 05/23/2025 BMI 26.78 kg/m2 05/23/2025 Height-cm 180.34 cm 05/23/2025 Weight-kg 87.09 kg 05/23/2025 Encounters Encounter Location Date Provider Diagnosis [address] [id number] 05/23/2025 NURA SOLOMON Tinea unguium B35.1 ; Pain in left foot M79.672 ; Pain in right foot M79.671 ; 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 Bring next visit, will buy otc orthotics and apply met pads in boots. He will use aquaphor daily to calluses as well. 05/23/2025 Pain in right foot (ICD-10 - M79.671) 05/23/2025 Atherosclerosis of chemehuevi arteries of extremities with intermittent claudication, bilateral legs (ICD-10 - I70.213) Check and protect LE bilateral daily. Call if any changes or concerns. 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 Bring next visit, will buy otc orthotics and apply met pads in boots. He will use aquaphor daily to calluses as well. Atherosclerosis of [place] ar teries of extremities with intermittent claudication, [...] boots check efficacy, edema check Provider Name:NURA FOUNTAIN, 08/01/2025 08:30:00 AM, [address] [place] [address], [id number], Progress Notes * FREDDYJyotiradhaDOB:1945 ( 80 yo M)Acc No.[id number]:05/23/2025 Patient: Izaiah ALBRIGHT Provider: Aroldo SOLOMON :1945 A ge:80 Y S ex:Male Date:05/23/2025 Address:[address] [facility] Subjective: * Chief Complaints: * 1 [...] Date last seen by Dr. Franklin was 03/2025., Initials nd. * ROS: G eneral / Constitutional: Patient [...] Family History documented.. * Medications: T aking Clotrimazole 1 % Cream 1 application Externally Twice a day dispense largest tube please, Taking Aspirin 81 MG Tablet Chewable 1 tablet [...] - M79.671 4 . A therosclerosis of chemehuevi arteries of extremities with intermittent claudication, bilateral legs - I70.213 5 . Acquired keratosis [keratoderma] palmaris et plantaris - L85.1 6 . V enous insufficiency (chronic) (peripheral) - I87.2 Plan: * Treatment: 2. P ain in left foot Notes: He forgot to bring work boots. Bring next visit, will buy otc orthotics and apply met pads in boots. He will use aquaphor daily to calluses as well. 3. A therosclerosis of chemehuevi arteries of extremities with intermittent claudication, bilateral [...] for continued diuretic management if needed. * Follow Up: 1 0 - 12 weeks (Reason: orthotics w met pads for work boots check efficacy, edema check) * Billing Information: * Visit Code: * Procedure Codes: * Electronic signature of VICKIE SOLOMON DPM on 05/30/2025 at 10:16 AM CDT Sign off status: Pending * Provider: Aroldo SOLOMON Date: 0 05/23/2025 Generated for Kaylee steinberg/Tristen/Dale on: 10:16 AM [...] Date last seen by Dr. Franklin was 03/2025., Initials nd Examination Category Sub-Category Detail Notes Category Not [...]
--- NOTE | ~2025-05-30 | XR_ITS ---
Examination: XR chest 2V Clinical History: COUGH Comparison: 10/24/2024 Technique: PA and Lateral Findings: Cardiomediastinal silhouette normal size and configuration. Lungs clear. Unchanged biapical scarring. Small right hilar calcifications. No acute bony abnormality. IMPRESSION: 1. No acute cardiopulmonary findings. Reviewed, dictated and finalized at location R.
[2025-05-30 10:11] LABS: Hematocrit 36.0 % (37.0-46.0); Hemoglobin 12.1 g/dL (12.4-15.3); Mean Corpuscular HGB Conc 33.6 g/dL (32-36); Mean Corpuscular Hemoglobin 30.9 pg (27.0-31.0); Mean Corpuscular Volume 91.8 fL (78.0-102.0); Platelet Count Result 209 K/mm3 (150-420); Red Blood Count 3.92 M/mm3 (4.70-6.10); White Blood Count 9.0 K/mm3 (4.8-10.8)
--- OUTSIDE RECORDS SUMMARY | 2025-05-30 10:16 | XMS_ITS | Encounter Summary ---
Author Organization [facility] Address [address] [place] [address] Care Team Providers Care Laborer Wood Preserving Plant Name Role Phone Landon Franklin MD Primary Care Provider [phone] Nader Burns MD Unavailable [phone] Kelsi Haile APRN, MANAGEMENT ACCOUNTS MANAGER-C Unavailable Aleksandr Jeffery MD Unavailable [phone] Remberto Malin MD Unavailable Encounter Details Date Type Department Care Team (Late Contact Info) Description 03/19/2021 [facility] [address] [place] [address] Nader Burns MD [address] [place] [address] Social History Tobacco Use Types Packs/Day Years Used Date Smoking Tobacco: Never Smokeless Tobacco: Never Sex and Gender Information Value Date Recorded Sex Assigned at Male 01/23/2025 9:12 AM CDT Legal Sex Male 9:12 AM HEAD MEN'S GOLF COACH Gender Identity Not on file Sexual Orientation Not on file documented as of this encounter Plan of Treatment Upcoming Encounters Date Type Department Care Team (Late Contact Info) Description 08/20/2025 1:00 PM HEAD MEN'S GOLF COACH Appointment [facility] Vascular Ultrasound - [facility] [address] [place] [address] Kelsi Haile, BETTY, MANAGEMENT ACCOUNTS MANAGER-C [address] [facility] [address] [place] [address] 08/20/2025 2:00 PM HEAD MEN'S GOLF COACH Office Visit [facility] eld [address] [place] [address] Kelsi Haile, BETTY, MANAGEMENT ACCOUNTS MANAGER-C [address] [facility] [address] [place] [address] documented as of this encounter Procedures [...] 420 RBC 3.97 4.70 - 6.10 03/18/2021 us Landon Franklin MD LAB-OUTSIDE/ABSTRACTED Final Result * LIPID PANEL (03/18/2021) CHOLESTEROL 144 0 - 200 HDL 63 [...] on filedocumented in this encounter Care Teams Laborer Wood Preserving Plant Relationship Specialty Start Date End Date Landon Franklin MD [address] [place] [address] PCP - General INTERNAL MEDICINE 08/07/20 Nader Burns MD [address] [place] [address] [place] Corporate Development Manager CARDIOVASCULAR DISEASE 08/07/20 Kelsi Haile, BAR MANAGER, MANAGEMENT ACCOUNTS MANAGER-C [address] [facility] [address] [place] [address] NURSE PRACTITIONER 10/10/23 Aleksandr Jeffery MD [address] [place] [address] Surgeon COLON/RECTAL SURGERY 10/10/23 Remberto Malin MD [address] [place] [address] Consulting Physician INTERVENTIONAL CARDIOLOGY 09/03/24 documented as of this encounter
--- OUTSIDE RECORDS SUMMARY | 2025-05-30 10:16 | XMS_ITS | Clinical Summary ---
Author Organization [facility] Address [address] [place] [address] Care Team Providers Care Freight Car Builder Name Role Phone Landon Franklin MD Primary Care Provider [phone] Nader Burns MD Unavailable [phone] Kelsi Haile APRN, MAIL OPENER-C Unavailable Aleksandr Jeffery MD Unavailable [phone] Remberto Malin MD Unavailable [phone] Allergies No known active allergies Medications aspirin 81 MG chewable tablet Chew 1 tablet (81 mg total) by mouth daily. 30 tablet 11 0 Active Blood Pressure KitIndications:Ess ential hypertension 1 Units by Does not apply route daily. 1 kit 0 Active travoprost, TRAVATAN Z, 0.004 % opthalamic solution INSTILL 1 DROP INTO IN BOTH EYES AT BEDTIME 1 Active losartan-hydroCHLO ROthiazide (HYZAAR) 50-12.5 MG tablet Take 1 tablet by mouth daily. 4 Active dorzolamide-timolo l (COSOPT) 2-0.5 % Solution Place 1 drop into both eyes 2 (two) times daily. 4 Active amoxicillin (AMOXIL) 500 MG capsule TAKE 4 CAPSULES BY MOUTH ONE HOUR PRIOR TO PROCEDURE 4 Active Coenzyme Q10 (CO Q 10 OR) Take by mouth daily. Active pantoprazole EC (PROTONIX) 40 MG tablet Take 1 tablet (40 mg total) by mouth 2 (two) times daily. 5 Active furosemide (LASIX) 40 MG tablet Take 1 tablet (40 mg total) by mouth daily. 14 tablet 5 Active potassium chloride CR (K-TAB) 20 MEQ tablet Take 1 tablet (20 mEq total) by mouth daily. 14 tablet 5 Active atorvastatin (LIPITOR) 80 MG tabletIndications: Mixed hyperlipidemia TAKE 1 TABLET(80 MG) BY MOUTH EVERY NIGHT AT BEDTIME 90 tablet 2 5 Active Active Problems Problem Noted Date Diagnosed [...] AM CDT Legal Sex Male 9:12 AM LOADER DEMOLDER Gender Identity Not on file Sexual Orientation Not on file Last Filed Vital Signs Vital Sign Reading Time Taken Comments Blood Pressure 134/78 08/31/2024 2:30 PM LOADER DEMOLDER Pulse 64 08/31/2024 1:36 PM LOADER DEMOLDER EKG Temperature - - Respiratory Rate 18 08/31/2024 1:36 PM LOADER DEMOLDER Oxygen Saturation 95% 08/31/2024 1:36 PM LOADER DEMOLDER Inhaled Oxygen Concentration - - Weight 88.4 kg (194 lb 12.8 oz) 08/31/2024 1:36 PM LOADER DEMOLDER Height 185.4 cm (6' 1) 08/31/2024 1:36 PM LOADER DEMOLDER Body Mass Index 25.7 08/31/2024 1:36 PM LOADER DEMOLDER Plan of Treatment Upcoming Encounters Date Type Department Care Team (Late st Contact Info) Description 08/20/2025 1:00 PM LOADER DEMOLDER Appointment [facility] Vascular Ultrasound - [facility] [address] [place] [address] Kelsi Haile, SKULL GRINDER, MAIL OPENER-C [address] [facility] [address] [place] [phone] 08/20/2025 2:00 PM LOADER DEMOLDER Office Visit [facility] eld [address] [place] [address] Kelsi Haile, SKULL GRINDER, MAIL OPENER-C [address] [facility] [address] [place] [address] Health Maintenance Due Date Last Done Comments DTaP, Tdap and Td Vaccines ( 1 - Tdap) 1962 Zoster Vaccines (1 of 2) 1993 Annual Medicare Wellness Visit 2008 RSV Immunization or 60+ Years (1 - 1-dose 75+ series) 2018 Pneumococcal Vaccine: 50+ Ye ars (2 of 2 - PPSV23) 07/28/2021 07/28/2020 COVID-19 Vaccine (1 - 2023-2 5 season) 2025 Meningococcal B Vaccine Aged Out No l onger eligible based on patient's age to complete this topic Meningococcal Vaccine Aged Out No foster julee eligible based on patient's age to complete this topic RSV Immunizations Under 20 Months Aged Out No longer eligible based on patient's age to complete this topic Insurance [place] [address] [place] [id number] [facility] Care Teams Freight Car Builder Relationship Specialty Start Date End Date Landon Franklin MD [address] [place] [phone] PCP - General INTERNAL MEDICINE 08/07/20 Nader Burns MD [address] [place] [address] [place] Heat Curer CARDIOVASCULAR DISEASE 08/07/20 Kelsi Haile APRN, MAIL OPENER-C [address] [facility] [address] [place] [address] NURSE PRACTITIONER 10/10/23 Aleksandr Jeffery MD [address] [place], [place] [address] Surgeon COLON/RECTAL SURGERY 10/10/23 Remberto Malin MD [address] [place] [address] Consulting Physician INTERVENTIONAL CARDIOLOGY 09/03/24
--- OUTSIDE RECORDS SUMMARY | 2025-05-30 10:16 | XMS_ITS | Encounter Summary ---
Author Organization [facility] Address [address] [place] [address] Care Team Providers Care Crepe Machine Operator Name Role Phone Landon Franklin MD Primary Care Provider [phone] Nader Burns MD Unavailable Kelsi Haile APRN, FORENSIC COMPUTER EXAMINER-C Unavailable Aleksandr Jeffery MD Unavailable [phone] Remberto Malin MD Unavailable Encounter Details Date Type Department Care Team (Late Contact Info) Description 09/11/2021 [facility] [address] [place] [address] Kelsi Haile APRN, FORENSIC COMPUTER EXAMINER-C [address] [facility] [address] [place] [address] Social History Tobacco Use Types Packs/Day Years Used Date Smoking Tobacco: Never Smokeless Tobacco: Never Sex and Gender Information Value Date Recorded Sex Assigned at Male 01/23/2025 9:12 AM CDT Legal Sex Male 9:12 AM AUDIO VISUAL SECRETARY Gender Identity Not on file Sexual Orientation Not on file COVID-19 Exposure Response Date Recorded In the last month, have you been in contact with someone who was confirmed or suspected to have Coronavirus / COVID-19? No / Unsure 08/27/2021 1:55 PM AUDIO VISUAL SECRETARY documented as of this encounter Plan of Treatment Upcoming Encounters Date Type Department Care Team (Late st Contact Info) Description 08/20/2025 1:00 PM AUDIO VISUAL SECRETARY Appointment [facility] Vascular Ultrasound - [facility] [address] [place] [address] Kelsi Haile APRN, FORENSIC COMPUTER EXAMINER-C [address] [address] 08/20/2025 2:00 PM AUDIO VISUAL SECRETARY Office Visit [facility] eld [address] [place] [address] Kelsi Haile APRN, FORENSIC COMPUTER EXAMINER-C [address] [address] documented as of this encounter Visit Diagnoses Not on filedocumented in this encounter Care Teams Crepe Machine Operator Relationship Specialty Start Date End Date Landon Franklin MD [address] [place] [address] PCP - General INTERNAL MEDICINE 08/07/20 Nader Burns MD [address] [place] [address] [place] Blade Grinder CARDIOVASCULAR DISEASE 08/07/20 Kelsi Haile APRN, FORENSIC COMPUTER EXAMINER-C [address] [address] NURSE PRACTITIONER 10/10/23 Aleksandr Jeffery MD [address] [place] [address] Surgeon COLON/RECTAL SURGERY 10/10/23 Remberto Malin MD [address] [place] [address] Consulting Physician INTERVENTIONAL CARDIOLOGY 09/03/24 documented as of this encounter
--- OUTSIDE RECORDS SUMMARY | 2025-05-30 10:16 | XMS_ITS | Patient Health Record ---
Author Organization [facility] Address [address] [place], [place] [id number] Care Team Providers Care Zyglo Technician Name Role Phone DENISE GUERRA Unavailable [phone] Ok Franklin Unavailable Unavailable KATHE DOYLE Unavailable [phone] NURA SOLOMON Unavailable [phone] Allergies No Known Allergies Reason For Referral [...] Admini stered Vital Signs Height-cm 180.34 cm 05/23/2025 Weight-kg 87.09 kg 05/23/2025 Height 71 in 05/23/2025 Weight 192 lbs 05/23/2025 BMI 26.78 kg/m2 05/23/2025 Encounters Encounter Location Date Provider Diagnosis [address] [id number] 01/17/2025 NURA SOLOMON Tinea unguium B35.1 ; Pain in left foot M79.672 ; Pain in right foot M79.671 ; Atherosclerosis of [place] arteries of extremities with intermittent claudication, bilateral legs I70.213 ; Acquired keratosis [keratoderma] palmaris et plantaris L85.1 and Venous insufficiency (chronic) (peripheral) I87.[address] [id number] 03/21/2025 NURA SOLOMON Tinea unguium B35.1 ; Pain in left foot M79.672 ; Pain in right foot M79.671 ; Atherosclerosis of [place] arteries of extremities with intermittent claudication, bilateral legs I70.213 ; Acquired keratosis [keratoderma] palmaris et plantaris L85.1 and Venous insufficiency (chronic) (peripheral) I87.[address] [id number] 05/23/2025 NURA SOLOMON Tinea unguium B35.1 ; Pain in left foot M79.672 ; Pain in right foot M79.671 ; Atherosclerosis of [place] arteries of extremities with intermittent claudication, bilateral legs I70.213 ; Acquired keratosis [keratoderma] palmaris et plantaris L85.1 and Venous insufficiency (chronic) (peripheral) I87.[address] [id number] 06/28/2024 KATHE YANIRA Other hammer toe(s) (acquired), right foot M20.41 ; Tinea unguium B35.1 ; Other hammer toe(s) (acquired), left foot M20.42 ; Pain in right toe(s) M79.674 ; Pain in left toe(s) M79.675 ; Unspecified atherosclerosis of [place] arteries of extremities, bilateral legs I70.203 and Acquired keratosis [keratoderma] palmaris et plantaris L85.1 [facility] [address] [place], [place] [id number] 09/13/2024 DENISE SNOOK Tinea unguium B35.1 ; Pain in right foot M79.671 ; Pain in left foot M79.672 ; Atherosclerosis of [place] arteries of extremities with intermittent claudication, bilateral legs I70.213 and Acquired keratosis [keratoderma] palmaris et plantaris L85.[address] [id number] 11/15/2024 DENISE SNOOK Tinea unguium B35.1 ; Pain in left foot M79.672 ; Pain in right foot M79.671 ; Atherosclerosis of [place] arteries of extremities with intermittent claudication, bilateral [...] aquaphor daily to calluses as well. 03/21/2025 Tinea unguium (ICD-10 - B35.1) Nails [...] aquaphor daily to calluses as well. 05/23/2025 Tinea unguium (ICD-10 - B35.1) Nails [...] in right foot (ICD-10 - M79.671) 05/23/2025 Pain in right foot (ICD-10 - M79.671) 11/15/2024 Pain in right foot (ICD-10 - M79.671) 01/17/2025 Pain in right foot (ICD-10 - M79.671) 09/13/2024 Pain in left foot (ICD-10 - M79.672) 06/28/2024 Other hammer toe(s) (acquired), left foot (ICD-10 - M20.42) 06/28/2024 Pain in right toe(s) (ICD-10 - M79.674) 11/15/2024 Atherosclerosis of [place] arteries of extremities with intermittent claudication, bilateral legs (ICD-10 - I70.213) 09/13/2024 Atherosclerosis of [place] arteries of extremities with intermittent claudication, bilateral legs (ICD-10 - I70.213) 01/17/2025 Atherosclerosis of [place] arteries of extremities with intermittent claudication, bilateral legs (ICD-10 - I70.213) Check and protect LE bilateral daily. Call if any changes or concerns. 05/23/2025 Atherosclerosis of [place] arteries of extremities with intermittent claudication, bilateral legs (ICD-10 - I70.213) Check and protect LE bilateral daily. Call if any changes or concerns. 03/21/2025 Atherosclerosis of [place] arteries of extremities with intermittent claudication, bilateral [...] and pared utilizing a #15 blade 05/23/2025 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.1) A total of 2 corns or calluses, as described in the note above, were cut and pared utilizing a #15 blade 03/21/2025 Acquired keratosis [keratoderma] palmaris et plantaris [...] (ICD-10 - M79.675) 06/28/2024 Unspecified atherosclerosis of [place] arteries of extremities, bilateral legs (ICD-10 - [...] physician for continued diuretic management if needed. 03/21/2025 Venous insufficiency (chronic) (peripheral) (ICD-10 - I87.2) Edema Recommendations: Advised patient on edema treatment recommendations. Recommendation for periodic elevation of feet and lower legs through the day. Recommend support compression hose. Advised on using daily and getting size XL. Recommend dietary restrictions salt intake. Followup with family physician for continued diuretic management if needed. 05/23/2025 Venous insufficiency (chronic) (peripheral) (ICD-10 - [...] Treatment Next Appt Details Provider Name:NURA FOUNTAIN, 08/01/2025 08:30:00 AM, [address] [place] [address], [id number], Insurance Providers Payer Name Payer Address Payer Phone Subscriber Number Group Number Insured Name Patient Relationship to Insured Coverage Start Date Coverage End Date Medicare Part B [facility] [address] [place] [address] [id number] Izaiah Hayes Self - patient is the insured [place] [employer] [place] Not iT [address] [place] [address] [id number] Izaiah Hayes Self - patient is the insured
--- OUTSIDE RECORDS SUMMARY | 2025-05-30 10:16 | XMS_ITS | Clinical Summary ---
Author Organization [facility] [employer] Address [address] [place] [address] Care Team Providers Care Research Dietitian Name Role Phone Landon Franklin MD Primary Care Provider [phone] Source Comments [facility] [employer],non-owned Affiliates and Associated Physician Practices is amultiple site organization consisting of ambulatory clinics and hospital sitesin [place]. This disclosure is being madepursuant to the Care Everywhere program and may not contain all information available regarding this patient. Last updated 18.[facility] [employer] Allergies No known active allergies Medications * [...] meals 30 Tab 7 Active nystatin (MYCOSTATIN) 741730 UNIT/GM powder Apply to affected area 3 [...] on file Legal Sex Male 1:37 PM ASSOCIATE DRAF[employer] Gender Identity Not on file Sexual Orientation Not on file Last Filed Vital Signs Vital Sign Reading Time Taken Comments Blood Pressure 118/75 09/26/2016 12:33 PM ASSOCIATE DRAFTER Pulse 83 09/26/2016 12:33 PM ASSOCIATE DRAFTER Temperature 36.6 C (97.9 F) 09/26/2016 12:33 PM ASSOCIATE DRAFTER Respiratory Rate 18 09/26/2016 12:33 PM ASSOCIATE DRAFTER Oxygen Saturation 99% 09/26/2016 12:33 PM ASSOCIATE DRAFTER Inhaled Oxygen Concentration - - Weight 81.2 kg (179 lb) 10/26/2016 10:26 AM ASSOCIATE DRAFTER Height 185.4 cm (6' 1) 10/26/2016 10:26 AM ASSOCIATE DRAFTER Body Mass Index 23.62 10/26/2016 10:26 AM ASSOCIATE DRAFTER Plan of Treatment Health Maintenance Due Date Last Done Comments DTAP/TDAP/TD VACCINES (1 - Tdap) 1962 PNEUMOCOCCAL VACCINE 50+ (1 of 1 - PCV) 1993 ZOSTER VACCINE (1 of 2) 1993 Respiratory Syncytial Virus (RSV) Vaccine Pt: or over 60 yrs (1 - 1-dose 75+ series) 2018 DEPRESSION SCREENING 08/29/2024 COVID-19 VACCINE (1 - 2023-2 5 season) 2025 INFLUENZA VACCINE (#1) 2025 HEPATITIS B VACCINE Aged Out No [...] this topic Medical Devices Implanted Type Area Sergeant Missile Crewman Device Identifier Shelf Expiration Date Model / Serial / Lot Shell Actb 58mm 3 Hl Poly R3 Std Implanted:Qty: 1 on 09/24/2016 by Francisco Shankar MD at [facility] [place] Right: Hip [employer] 06/23/2026 [id number] / / [id number] Acetabular Liner Uhmwpe Implanted:Qty: 1 on 09/24/2016 by Francisco Shankar MD at [facility] [place] Right: Hip [employer] 07/29/2024 [id number] / / [id number] Screw 6.5mm 40mm Sphr Hip Actb Reflc Implanted:Qty: 1 on 09/24/2016 by Francisco Shankar MD at [facility] [place] Right: Hip [employer] 06/06/2025 [id number] / / [id number] Stem Standard With Ti/Eason Implanted:Qty: 1 on 09/24/2016 by Francisco Shankar MD at [facility] [place] Right: Hip [employer] 06/08/2023 [id number] / / [id number] Ceramic Modular Femoral Head Implanted:Qty: 1 on 09/24/2016 by Francisco Shankar MD at [facility] [place] Right: Hip [employer] 07/13/2026 [id number] / / [id number] Cal Uncem Hip All Inclusive Implanted:Qty: 1 on 09/24/2016 by Francisco Shankar MD at [facility] [place] [employer] BILL ONLY [employer] H[employer] ALL INCLUSIVE [place] / / Insurance MEDICARE [facility]LY [facility] COMMERCIAL GENERIC MEDICARE Advance Directives * Full Code (Latest Code Status on File) Date Activated Date Inactivated Comments 09/24/2016 4:27 PM 09/26/2016 3:16 PM * Full Code Date Activated Date Inactivated Comments 09/24/2016 2:17 PM 09/24/2016 4:27 PM Care Teams Research Dietitian Relationship Specialty Start Date End Date Landon Franklin MD PCP - General Internal Medicine 06/30/15
[2025-05-30 10:23] LABS: Anion Gap 8 mmol/L (4-12); Blood Urea Nitrogen 22 mg/dL (9-20); Calcium 8.8 mg/dL (8.4-10.2); Carbon Dioxide 25 mmol/L (22-30); Chloride 106 mmol/L (98-107); Estimated Glomerular Filt Rate 56; Glucose 102 mg/dL (65-110); Osmolality Calculated 291 mOsm/kg (285-295); Potassium 4.2 mmol/L (3.4-5.0); Sodium 139 mmol/L (137-145)
[2025-05-30 10:36] LABS: Strep Group A RT-PCR NOT DETECTED (Negative)
[2025-05-30 10:49] LABS: Influenza A QL RT-PCR Negative (Negative); Influenza B QL RT-PCR Negative (Negative); RSV RNA, RT-PCR Negative (Negative); SARS-CoV-2 RNA PCR Negative (Negative)
== END 2025-05-30 09:46 | disposition home or self-care (01) ==
LOC: CHSLAB 09:48
PROVIDERS: PCP Internal Medicine; Visit Provider Internal Medicine
DX: R05.9 Cough, unspecified (principal); R09.89 Other specified symptoms and signs involving the circulatory and respiratory systems
CPT/HCPCS: 36415; 71046; 80048; 85027; 87637; 87651